=== PATIENT | female | born 1945 | race Caucasian/White ===

== ENCOUNTER → 2016-11-24 | Outpatient (CLI) | payer OTHER ==
--- NOTE | 2016-11-24 19:00 | DX ---
PA and Lateral Chest November 24, 2016 Clinical Indications: Left rib pain following ORIF in a 71-year-old female; comparison February 18, 2016 . Findings: Stable postoperative changes of ORIF are seen, with orthopedic fixation of multiple upper left rib fractures as well as a left clavicular fracture. The hardware is intact. The surgical stap les have been removed. There is mild decrease in left lung volume, which is unchanged. The heart si ze remains normal. Postoperative changes of CABG are seen. No pneumothorax is identified. No pleur al effusions are identified. Impressions 1. Stable postoperative changes of left rib and left clavicular ORIF. No acute abnormality is ident ified. 2. See above report for additional findings.
== END ==
LOC: FIMAGING 11:47
PROVIDERS: ATTEND Surgery
DX: S22.42XD Multiple fractures of ribs, left side, subsequent encounter for fracture with routine healing (principal); G89.18 Other acute postprocedural pain

== ENCOUNTER → 2017-02-15 | Outpatient (CLI) | payer OTHER | LOC: CIMAGING 12:21 | PROVIDERS: ATTEND Physician Assistant Surgical | DX: M79.605 Pain in left leg (principal); M79.89 Other specified soft tissue disorders; M71.22 Synovial cyst of popliteal space [Baker], left knee | CPT/HCPCS: 93971-PO ==

== ENCOUNTER 2017-03-30 17:20 | Observation (INO) | payer OTHER ==
[2017-03-30] MEDS ORDERED: ONDANSETRON DISINTEGRATING 4 MG TAB PO PRN (19:46)
[2017-03-30] MEDS ORDERED: ACETAMINOPHEN 325 MG TAB PO PRN (19:46)
[2017-03-30] MEDS ORDERED: ONDANSETRON 4 MG/2 ML VIAL IVP PRN (19:46)
--- NOTE | 2017-03-30 20:00 | PDGENHP ---
History and Physical - Chief Complaint Weakness - History of Present Illness this is a pleasant 71 yo female with MMP who presented to the [facility] ED this afternoon per the request of her PT team. In the E.D. she was found to have slight dehydration and possible ARF with a Cr of 1.4. She was given 500ml of IVF and a decision to admit was decided upon. Per the pt's request, she was transferred to [facility] as she gets her medical treatment her. The pt is a good historian. She reports she is not sure why she is here. She says that her PT and a friend entered her house and that she was laying in her bed as she normally does. Apparently, they report that she was intermediate off the bed, was confused, and looked pale. She denies this. She is alert and oriented. She was found to have no evidence of anemia or other electrolyte abnormality. A CT of the head was unremarkable. An EKG was reported unremarkable. Per report she recently was given an Ativan for a Left trapezius spasm. It is unclear if she took this this morning. She reports being able to shower this morning without difficulty. Was going about her day until this event. She was seen yesterday afternoon. Currently she appears back to her baseline per her son who is at bedside. She denies Fever, confusion, weakness, N/V, SOB, CP, increased leg swelling. She gets her wound care for her chronic LLE wound at [facility]. PMHx: Pseudogout, clavicle fracture, COPD with 2-3 L 24/7, Rib fractures, P.E., chest hematoma, pedal edema, porcine mitral valve replacement, restless leg syndrome. PSHx: Left thoracoplasty, appendectomy, partial hysterectomy, clavicular fracture, retrocele repair SocHx: lives alone, , No Tobacco or ETOH. FmHx: DM, HLD, HTN Labs (from [facility]) WBC: 7.7, Hgb: 12.3, platelets: 305 Cr: 1.4, K 3.6, Na normal, no other abnormalities History Information - Allergies/Home Medication List Allergies/Adverse Reactions: No Known Allergies Allergy (Verified 10/11/15 11:27) Home Medications: Calcium Carb W/Vit D [Calcium Carb W/Vit D 500/200 (*)] 500 mg PO DAILY [Last Taken 02/09/16 08:00] Folic Acid [Folic Acid 1 MG (*)] 1 mg PO TID 02/03/16 [Last Taken 02/09/16 21:00 ] Furosemide [Lasix 40 MG (*)] 40 mg PO DAILY 02/03/16 [Last Taken 02/09/16 09:00] I have personally reviewed and updated: family history, medical history, social history, surgical history - Social History Smoking Status: Former smoker Review of Systems ROS: 10pt was reviewed & negative except for what was stated in HPI & below Physical Exam Temp Pulse Resp BP Pulse Ox 36.6 C 95 16 155/85 H 97 03/30/17 19:14 03/30/17 19:14 03/30/17 19:14 03/30/17 19:14 03/30/17 18:52 O2 (L/minute) 3 Constitutional: no apparent distress, appears nourished Eyes: PERRL, EOMI Ears, Nose, Mouth, Throat: moist mucous membranes, No dry mucous membranes Cardiovascular: regular rate and rhythym, no murmur, rub, or gallop, edema ( trace bilaterally), No systolic murmur, No JVD Respiratory: reduced air movement Gastrointestinal: normoactive bowel sounds, soft, non-tender abdomen, no palpable masses Skin: warm Neurologic: AAOx3, sensation intact bilaterally, No weakness Psychiatric: interacting appropriately, not anxious, not encephalopathic Assessment & Plan Assessment: #Questions Acute vs Acute on chronic vs chronic Kidney injury -Cr. 1.4, baseline normal in 2016, no newer values -Appears Euvolemic and well hydrated #?Dehydration, resolving #Weakness: resolving #Encephalopathy: resolved #Recent Ativan use #Pedal edema, chronic #chronic left leg wound #Chronic AC and hx of PE #COPD, not in Exacerbation. At baseline. Plan: Admit repeat labs in a.m PT to clear for dispo She appears euvolemic currently. I will not make any adjustment to her home meds nor does she need additional fluids at this time. Her confusion could have been caused by the Ativan. Would avoid. F/u with wound clinic as arranged
[2017-03-30] MEDS ORDERED: ALBUTEROL 5 MG/ML INH 20 ML BTL IH PRN (22:29)
[2017-03-30] MEDS ORDERED: AMITRIPTYLINE HCL 25 MG TAB PO SCH (23:00)
[2017-03-30] MEDS ORDERED: GABAPENTIN 100 MG CAP PO SCH (23:00)
[2017-03-30] MEDS: APIXABAN 5 MG TAB PO SCH (23:42)
[2017-03-31 05:40] LABS: % IMMATURE GRANULYOCYTES 0.3 % (0.0-1.1); ABSOLUTE IMMATURE GRANULOCYTES 0.02 10^3/uL (0.00-0.10); ADD DIFF? NO; ADD MORPH? NO; ADD SCAN? NO; ATYPICAL LYMPHOCYTE FLAG 0 (0-99); FRAGMENT RBC FLAG 0 (0-99); HEMATOCRIT 32.3 % (38.0-47.0); HEMOGLOBIN 10.4 g/dL (12.6-16.3); LEFT SHIFT FLG 0 (0-99); LIPEMIA HEMOLYSIS FLAG 80 (0-99); MEAN CELL HEMOGLOBIN 30.6 pg (27.9-34.1); MEAN CELL HEMOGLOBIN CONCENTR. 32.2 g/dL (32.4-36.7); MEAN PLATELET VOLUME 10.4 fL (8.7-11.7); PLATELET CLUMPS FLAG 0 (0-99); PLATELET COUNT 347 10^3/uL (150-400); RED CELL DISTRIBUTION WIDTH 14.6 % (11.5-15.2)
[2017-03-31 05:52] LABS: ANION GAP 4 mEq/L (8-16); CALCIUM 8.9 mg/dL (8.5-10.4); CARBON DIOXIDE 31 mEq/l (22-31); CHLORIDE 101 mEq/L (97-110); CREATININE 0.8 mg/dL (0.6-1.0); GLOMERULAR FILTRATION RATE > 60; GLUCOSE 109 mg/dL (70-100); MAGNESIUM 1.7 mg/dL (1.6-2.3); POTASSIUM 3.3 mEq/L (3.5-5.2); SODIUM 136 mEq/L (134-144)
[2017-03-31 07:24] VITALS: RESP 18
[2017-03-31] MEDS ORDERED: CARVEDILOL 6.25 MG TAB PO SCH (08:00)
[2017-03-31] MEDS: FUROSEMIDE 40 MG TAB PO SCH ×2 (08:32→11:03)
[2017-03-31] MEDS: APIXABAN 5 MG TAB PO SCH (08:32)
[2017-03-31] MEDS ORDERED: FLUTICASONE/SALMETER 250/50MCG DISKUS IH SCH (09:00)
[2017-03-31] MEDS ORDERED: CALCIUM CARB W/VIT D 500 MG TAB PO SCH (09:00)
[2017-03-31] MEDS ORDERED: SPIRONOLACTONE 25 MG TAB PO SCH (09:00)
[2017-03-31] MEDS ORDERED: GABAPENTIN 100 MG CAP PO SCH (09:00)
[2017-03-31] MEDS ORDERED: LEFLUNOMIDE 20 MG TAB PO SCH (09:00)
[2017-03-31] MEDS ORDERED: PROTOCOL POTASSIUM 1 DOSE MISC PRN (10:23)
[2017-03-31] MEDS ORDERED: POTASSIUM CL 10 MEQ TAB PO ONE (10:31)
[2017-03-31 12:17] VITALS: BP 140/92; PULSE 98; TEMP 98.4; O2SAT 90
--- NOTE | 2017-03-31 12:54 | HOSPPROG ---
Hospitalist Progress Note Assessment/Plan: Patient is a 71 y/o woman who was admitted due to dehydration and elevated creat / she was given fluids. She was originally at ED in [place]. She asked to be transferred to [facility]. JASON on CKI creat is stable Likely dehydrated on Lasix and Aldactone Acute encephalopathy resolved had been started on Robaxin for neck pain recommending she stop taking Chronic leg wound care at wound clinic chronic pedal edema copd:no exacerbation always on 3 liters hx of PE: On chronic OAC plan: dc back home with home care/ close f/u with Dr Medley and [facility] Subjective: Smita feels fine/ wants to go home. Objective: Vital Signs Temp Pulse Resp BP Pulse Ox 36.9 C 98 18 140/92 H 90 L 03/31/17 12:00 03/31/17 12:00 03/31/17 12:00 03/31/17 12:00 03/31/17 12:00 Laboratory Results 03/31/17 04:50 03/31/17 04:50 03/30/17 03/31/17 04/01/17 05:59 05:59 05:59 Intake Total 300 350 Output Total 100 450 Balance 200 -100 - Physical Exam Constitutional: no apparent distress, appears nourished, not in pain, chronically ill appearing Eyes: PERRL, other (wearing glasses) Ears, Nose, Mouth, Throat: hearing normal Cardiovascular: regular rate and rhythym Respiratory: no respiratory distress, reduced air movement, expiratory wheeze ( few scattered) Skin: warm, other (trace ankle edema/left ankle in a dressing) Musculoskeletal: no muscle tenderness Neurologic: AAOx3 Psychiatric: interacting appropriately, not encephalopathic ICD10 Worksheet Patient Problems: Problems Problem Status Onset Rib fracture Acute
--- NOTE | 2017-03-31 13:37 | PDIAF ---
- Diagnosis Diagnosis: arf on chronic Code Status: Full Code - Medication Management Discharge Medications: Medications to Continue on Transfer Calcium Carb W/Vit D [Calcium Carb W/Vit D 500/200 (*)] 500 mg PO DAILY [Last Taken 02/09/16 08:00] Furosemide [Lasix 40 MG (*)] 40 mg PO AD 02/03/16 [Last Taken 03/30/17] Amitriptyline HCl [Elavil] 75 mg PO HS #0 tab 02/14/16 [Last Taken 03/29/17] Carvedilol [Coreg (*)] 12.5 mg PO BIDMEAL #0 tab 02/14/16 [Last Taken 03/30/17] Fluticasone/Salmeter 250/50Mcg [Advair 250/50 (*)] 1 puffs IH BID #0 disk [Last Taken 03/30/17] Spironolactone [Aldactone] 50 mg PO DAILY #0 tab 02/14/16 [Last Taken 03/30/17] Albuterol Sulfate [ALBUTEROL SULFATE] 0.63 mg IH BID PRN 03/30/17 [Last Taken Unknown] Albuterol Sulfate [Ventolin Hfa] 2 puffs IH QID PRN 03/30/17 [Last Taken Unknown ] Apixaban [Eliquis] 5 mg PO BID 03/30/17 [Last Taken 03/30/17 08:00] Colchicine [Colchicine (*)] 0.6 mg PO HS 03/30/17 [Last Taken 03/29/17] Gabapentin 100 mg PO DAILY 03/30/17 [Last Taken 03/30/17] Gabapentin 200 mg PO HS 03/30/17 [Last Taken 03/29/17] Leflunomide 20 mg PO DAILY 03/30/17 [Last Taken 03/30/17] rOPINIRole HCL [Ropinirole HCl] 4 mg PO HS 03/30/17 [Last Taken 03/29/17] Acetaminophen [Tylenol 325mg (*)] 650 mg PO Q4HRS PRN #0 tab 03/31/17 [Last Taken Unknown] Discharge Medications: Refer to the Discharge Home Medication list for PRN reason. - Orders Services needed: Home Care, Physical Therapy, Occupational Therapy Home Care Face to Face: I certify that this patient was under my care and that I had the required [id number] encounter meeting the encounter requirements on the discharge day. My findings support the fact that the patient is homebound as defined in CMS Chapter 7 Medicare Benefits Manual 30.1.1, The condition of the patient is such that there exists a normal inability to leave home and consequently, leaving home would require a considerable and taxing effort. Diet Recommendation: no restrictions on diet Diet Texture: Regular Texture Diet Additional: Hold lasix until you see Ann or Dr Clarke at [facility]/ make an appt for early next week. - Follow Up Care Current Providers and Referrals: Patient,NotPresent [Primary Care Provider] - Ann Jade, [employer] [Certified Nurse Practioner] -
--- NOTE | 2017-03-31 14:24 | GDS ---
[f rep st] DISCHARGE SUMMARY DISCHARGE DIAGNOSES: 1. Acute renal failure, on chronic. 2. Dehydration. 3. Acute encephalopathy. 4. Chronic leg wound. 5. Chronic pedal edema. 6. Chronic obstructive pulmonary disease, baseline on 3 L. 7. History of pulmonary embolism, on chronic oral anticoagulation. BRIEF HISTORY: The patient is a 71-year-old female, who has a past medical history of COPD, pedal edema, porcine mitral valve replacement, and restless legs syndrome, who presented to the emergency room at [place] and found to have some dehydration. There was concern that she had acute renal failure with a creatinine of 1.4. She was given 500 mL of IV fluids. The patient requested to be transferred to [facility]. She was confused and looked pale. She had a CT performed of the head, which was unremarkable. An EKG was reported unremarkable. She was admitted for further care. HOSPITAL COURSE PER PROBLEM: 1. Acute renal failure on chronic renal failure. Creatinine is stable today at 0.8. She is on two diuretics for lower extremity edema. I have recommended that she hold her Lasix until she further follows up with [facility]. Recommend that she see them early next week. 2. Dehydration, this probably is secondary from being on Lasix and Aldactone. 3. Acute encephalopathy, this is resolved. She was given Ativan for muscle spasm in the ER. In addition, she is on a muscle relaxant, and I have recommended that she stop taking this, especially in the setting that she lives alone. 4. Chronic leg wound, she sees Dr. Medley and has an appointment on Tuesday. 5. Chronic pedal edema, it is trace today. 6. COPD, no exacerbation. She is at her baseline of 3 L. 7. History of PE, she is on chronic oral anticoagulation. PENDING LABS AND TESTS: None. CONDITION AT DISCHARGE: Stable. Blood pressure is 140/92, heart rate is 98, respiratory rate is 18, O2 saturation on 3 L is 90%, temperature is 36.9 Celsius. DISCHARGE MEDICATIONS: Please see the EMR. DISCHARGE INSTRUCTIONS: 1. To follow up with [facility] to discuss what she needs, the Aldactone and Lasix. 2. To follow up with Dr. Medley. /[id number]/MODL MTDD
[2017-03-31] MEDS ORDERED: COLCHICINE 0.6 MG CAP/TAB PO SCH (21:00)
== END 2017-03-31 15:28 | disposition home health service (06) ==
LOC: F3N 18:31 → INTOOBSV 18:31
PROVIDERS: ADMIT Family Medicine; ATTEND Hospitalist
DX: N17.9 Acute kidney failure, unspecified (principal); I12.9 Hypertensive chronic kidney disease with stage 1 through stage 4 chronic kidney disease, or unspecified chronic kidney disease; E86.0 Dehydration; G93.49 Other encephalopathy; J44.9 Chronic obstructive pulmonary disease, unspecified; L97.929 Non-pressure chronic ulcer of unspecified part of left lower leg with unspecified severity; R60.0 Localized edema; Z79.01 Long term (current) use of anticoagulants
CPT/HCPCS: 97161; G0378; G8978; G8979; G8980

== ENCOUNTER → 2017-04-22 | Outpatient (CLI) | payer OTHER | LOC: BHCLAF 13:15 | PROVIDERS: ATTEND Internal Medicine Cardiovascular Disease | DX: I38 Endocarditis, valve unspecified (principal) | CPT/HCPCS: 93306-PO ==

== ENCOUNTER 2017-05-31 15:16 | Inpatient (IN) | payer OTHER ==
--- NOTE | 2017-05-31 16:20 | EDPHY ---
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 She complains of increasing fatigue, weakness, rash and shortness of breath. This has been present for the past week. Seen by her primary care physician yesterday order blood cultures and labs at the time. She diagnosed her with a rash of lower extremities and prescribed triamcinolone. Patient says the rash may be somewhat better. But her remaining symptoms have begun to worsen. She has no chest pain but she has significant lethargy and fatigue to the point that she can minimally ambulate. Shortness of breath his orthotic neck and does improve when sitting upright. Her lower extremity erythema and edema with some excoriations. She does have a red erythematous rash to the palm of the hands. She does have a history of a porcine mitral valve replacement 2012. He no other associated complaints or modifying factors. She was attempted for direct admit but there were no beds available, thus she presents to the emergency department REVIEW OF SYSTEMS: Ten systems reviewed and are negative unless otherwise noted in the HPI PAST MEDICAL HISTORY: Reviewed as documented SOCIAL HISTORY: Previous smoker. Home oxygen dependent. Lives in [place] with daily home health not FAMILY HISTORY: Noncontributory EXAMINATION General Appearance: Alert, no distress, frail Head: normocephalic, atraumatic Eyes: Pupils equal and round, no conjunctival pallor or injection. EOMs intact ENT, Mouth: Mucous membranes moist. Uvula midline. No lesions of the mouth. Airway is patent Neck: Normal inspection, supple, non-tender Respiratory: Scattered rhonchi. No crackles or consolidation Cardiovascular: Regular rate and rhythm. Systolic murmur. Pulses intact distally in symmetrically Gastrointestinal: Abdomen is soft and nontender Back: non-tender, no bony abnormalities Neurological: GCS 15. Cranial nerves 2-12 grossly intact A&O, nonfocal. Strength is 3/5 in all 4 limbs. Skin: Warm and dry. Extensive maculopapular rash to the lower extremities, arms, palms of the hands and malar rash to the face. There is some petechiae to the anterior shins bilaterally no lesions of the nails. Extremities: Symmetric 2+ pedal edema. Extremities are mildly tender over the edema. The range of motion of the limbs are symmetric. Psychiatric: Mood and affect normal DIFFERENTIAL DIAGNOSES: Including but not limited to sepsis, endocarditis, rash, CHF, stasis, pneumonia , UTI MDM: 4:15 p.m. Increasing weakness, fatigue, extensive rash. Primary care physician sufficient for admission due to concern for the possibility of endocarditis and others. I did speak directly with Dr. Tomlin. Patient arrives with mild tachycardia but in no acute distress. Septic workup has been commenced. Additionally I have ordered ultrasound of the lower extremities and will discuss with my attending physician for him to evaluate the patient. 4:[address] Carlisle is evaluating the patient at this time. She remains awake and alert in no acute distress 5:10 p.m. Notified by radiologist Dr. Leary. Doppler of the lower extremities reveals no DVT. There is a left Jaquez's cyst. Remainder of laboratory studies are pending at this time. 5:25 p.m. Lower extremity cellulitis that is likely due to secondary infection of rash. There is no evidence of sepsis as there is no leukocytosis, no fever, negative lactic acid. Plan for admission due to cellulitis and rash given the patient's multiple comorbidities and her age. I have discussed case with the hospitalist Dr. Murdock. He has been admitted in stable condition. I do not appreciate any evidence of endocarditis, but I have discussed this as a possible etiology for the hospitalist to explore. SUPERVISION: Shared visit with Dr. Carlisle (Dustin Rolon) Constitutional: Initial Vital Signs Temperature (C) 36.8 C 05/31/17 15:22 Heart Rate 109 H 05/31/17 15:22 Respiratory Rate 20 05/31/17 15:22 Blood Pressure 116/85 H 05/31/17 15:22 O2 Sat (%) 92 05/31/17 15:22 O2 Delivery Mode Nasal Cannula O2 (L/minute) 2 Allergies/Adverse Reactions: No Known Allergies Allergy (Verified 10/11/15 11:27) Home Medications: Medication Instructions Recorded Furosemide [Lasix 40 MG (*)] 40 mg PO DAILY 02/03/16 Amitriptyline HCl [Elavil] 75 mg PO HS #0 tab 02/14/16 Fluticasone/Salmeter 250/50Mcg 1 puffs IH BID #0 disk 02/14/16 [Advair 250/50 (*)] Spironolactone [Aldactone] 50 mg PO DAILY #0 tab 02/14/16 Albuterol Sulfate [ALBUTEROL 0.63 mg IH BID PRN 03/30/17 SULFATE] Albuterol Sulfate [Ventolin Hfa] 2 puffs IH QID PRN 03/30/17 Apixaban [Eliquis] 5 mg PO BID 03/30/17 Colchicine [Colchicine (*)] 0.6 mg PO HS 03/30/17 Gabapentin 100 mg PO DAILY 03/30/17 Gabapentin 200 mg PO HS 03/30/17 Leflunomide 20 mg PO DAILY 03/30/17 rOPINIRole HCL [Ropinirole HCl] 4 mg PO HS 03/30/17 Acetaminophen [Tylenol 325mg (*)] 650 mg PO Q4HRS PRN #0 tab 03/31/17 Carvedilol [Coreg (*)] 12.5 mg PO DAILY@0800 05/31/17 Carvedilol [Coreg (*)] 18.75 mg PO DAILY@1800 05/31/17 Furosemide [Lasix 40 MG (*)] 40 mg PO Q3D 05/31/17 Departure - Departure Disposition: [facility] Acute Clinical Impression: Lower extremity cellulitis Qualifiers: Laterality: unspecified laterality Qualified Code(s): L03.119 - Cellulitis of unspecified part of limb Dyspnea Qualifiers: Dyspnea type: shortness of breath Qualified Code(s): R06.02 - Shortness of breath Condition: Good
[2017-05-31 16:52] LABS: % IMMATURE GRANULYOCYTES 0.6 % (0.0-1.1); ABSOLUTE IMMATURE GRANULOCYTES 0.05 10^3/uL (0.00-0.10); ADD DIFF? NO; ADD MORPH? NO; ADD SCAN? NO; ATYPICAL LYMPHOCYTE FLAG 10 (0-99); FRAGMENT RBC FLAG 0 (0-99); HEMATOCRIT 39.6 % (38.0-47.0); HEMOGLOBIN 13.1 g/dL (12.6-16.3); LEFT SHIFT FLG 0 (0-99); LIPEMIA HEMOLYSIS FLAG 80 (0-99); MEAN CELL HEMOGLOBIN 30.8 pg (27.9-34.1); MEAN CELL HEMOGLOBIN CONCENTR. 33.1 g/dL (32.4-36.7); MEAN PLATELET VOLUME 10.6 fL (8.7-11.7); PLATELET CLUMPS FLAG 0 (0-99); PLATELET COUNT 324 10^3/uL (150-400); RED BLOOD CELL COUNT 4.26 10^6/uL (4.18-5.33); RED CELL DISTRIBUTION WIDTH 14.6 % (11.5-15.2)
--- NOTE | 2017-05-31 17:01 | CPEKG ---
Heart Rate: 101 RR Interval: 594 P-R Interval: 164 QRSD Interval: 96 QT Interval: 380 QTC Interval: 493 P Bergton: 64 QRS Bergton: -54 T Wave Bergton: 74 EKG Severity - ABNORMAL ECG - EKG Impression: SINUS TACHYCARDIA EKG Impression: LEFT ANTERIOR FASCICULAR BLOCK EKG Impression: BORDERLINE T ABNORMALITIES, ANT-LAT LEADS EKG Impression: BORDERLINE PROLONGED QT INTERVAL EKG Impression: SINUS RHYTHM HAS REPLACED ATRIAL FLUTTER Electronically Signed By: Savage Galvez 01-Jun-2017 07:50:13
[2017-05-31] MEDS ORDERED: VANCOMYCIN HCL/NORMAL SALINE 250 ML IV ONE (17:05)
[2017-05-31 17:18] LABS: TROPONIN I 0.018 ng/mL (0-0.034)
[2017-05-31 17:21] LABS: INR 1.06 (0.83-1.16); PROTIME(PATIENT) 13.7 SEC (12.0-15.0)
[2017-05-31 17:22] LABS: APTT 29.7 SEC (23.0-38.0)
[2017-05-31] MEDS ORDERED: ONDANSETRON 4 MG/2 ML VIAL IVP PRN (17:41)
[2017-05-31] MEDS ORDERED: ONDANSETRON DISINTEGRATING 4 MG TAB PO PRN (17:41)
[2017-05-31] MEDS ORDERED: ACETAMINOPHEN 325 MG TAB PO PRN (17:41)
[2017-05-31 17:43] LABS: ANION GAP 14 mEq/L (8-16); BILIRUBIN,TOTAL 0.7 mg/dL (0.1-1.4); C-REACTIVE PROTEIN 31.2 mg/L (<10.0); CALCIUM 9.8 mg/dL (8.5-10.4); CARBON DIOXIDE 28 mEq/l (22-31); CHLORIDE 94 mEq/L (97-110); CREATININE 0.9 mg/dL (0.6-1.0); GLOMERULAR FILTRATION RATE > 60; GLUCOSE 92 mg/dL (70-100); POTASSIUM 4.2 mEq/L (3.5-5.2); SODIUM 136 mEq/L (134-144)
[2017-05-31 17:54] LABS: SEDIMENTATION RATE 11 MM/HR (0-30)
[2017-05-31 19:42] VITALS: RESP 16
[2017-05-31] MEDS ORDERED: ALBUTEROL 200 PUFFS/18 GM MDI IH PRN (20:00)
--- NOTE | 2017-05-31 20:08 | GHP ---
[f rep st] HISTORY AND PHYSICAL DATE OF ADMISSION: 05/31/2017 CHIEF COMPLAINT: Rash, fatigue. HISTORY OF PRESENT ILLNESS: a 72-year-old female with a history of pseudogout, COPD on oxygen chronically, porcine mitral valve replacement, who was sent in by her PCP, Dr. Tomlin, for multiple symptoms including rash, chills, and fatigue. For the past 2 weeks chills, fatigue and a new rash. Fatigue has been for a few months along with decreased appetite and oral intake. Intermittently has diarrhea once a month. A rash started on her ankles 2 weeks ago that has spread to shins, hands, chest, and face. Has a few small blisters on her right hand. Not painful, but itchy. Denies fevers or sweats. No chest pain, mylagias , or shortness of breath. Fell and injured her neck in February this year. Per son , had negative CT of neck at that time and doing, but still weak in neck. No pets or recent travel. Previously worked as a middle school music teacher. No new medications, soaps, or perfumes. REVIEW OF SYSTEMS: I completed a 10-point review of systems. PAST MEDICAL HISTORY: 1. Chronic left leg wound after dropping a large container of butter on that leg in January 2017, status post skin graft. 2. Pseudogout. 3. Clavicle fracture. 4. COPD. 5. Chronic hypoxemic respiratory failure on 2-3 L. 6. History of small lingular subsegmental PE in 2012. 7. Mitral valve replacement. 8. Restless leg syndrome. 9. Hypertension. PAST SURGICAL HISTORY: Thoracoplasty, appendectomy, hysterectomy, rectocele repair. SOCIAL HISTORY: Lives in [place] by herself. Her son is close by. She used a cane for the last 3 years. She drinks a toddy a day per her report. Had smoked a pack of cigarettes for 45 years. FAMILY HISTORY: Diabetes, hypertension. ALLERGIES: No known drug allergies. HOME MEDICATIONS: Eliquis 5 mg twice a day, Elavil 75 mg at bedtime, albuterol nebulizers as needed, colchicine, Coreg, Lasix 40 mg every 3 days as needed, Advair, spironolactone 50 mg daily, leflunomide 20 mg daily, gabapentin 200 mg at bedtime, gabapentin 100 mg daily, ropinirole. PHYSICAL EXAMINATION: VITAL SIGNS: Temperature is 37, blood pressure 150/88, heart rate 103, respirations 21, 96% on 2 L. GENERAL: Thin female lying in bed in no acute distress. HEENT: PERRLA. EOMI. Oropharynx clear. No oral lesions or petechiae. Does have a macular rash over bilateral cheeks and along the left exterior ear. CV: Regular rate and rhythm. No murmurs, gallops, or rubs. LUNGS: Clear to auscultation bilaterally. ABDOMEN: Soft, nontender, nondistended. Positive bowel sounds. : No suprapubic tenderness. MUSCULOSKELETAL: Moving all 4 extremities. No spinae tenderness except over the cervical spine. SKIN: Bilateral legs with erythema and warmth. She has a small papular lesions, flaky skin. Small vesicles on the right palm. One small vesicle on the left palm. The same rash is present on her upper chest along the neck. NEURO: 2 through 12 intact. PSYCH: Alert and oriented x3. Very pleasant. LABORATORY AND X-RAY DATA: WBC is 8, hemoglobin 13, hematocrit 39, platelets 324. Coagulations within normal. Blood gas 1.5. Sodium 136, potassium 4.2, chloride 94, anion gap 14, creatinine 0.9. Troponin 0.018. CRP is 31. BNP is 596. ESR is 11. Lower extremity ultrasound negative for DVT. Chest x-ray: Scarring in the lingula. Sternotomy wires in place with plates left clavicle. ASSESSMENT/PLAN: 1. Maculopapular rash: Differential includes infection, medication, vasculitis , lupus. She denies new soaps or medications. It is in an unusual distribution on legs, face, palms, neck, ear. Leflunomide can cause rash. Other differential includes vasculitis, (she denies having RA). Consider syphilis with palmar involvement. Porphyria can present this way. Check JEVON, RF, and complement levels. ESR, CRP, UA for protein, porphyrins, RPR. Hold Leflunomide. 2. Bilateral lower extremity cellulitis: Superimposed over the rash. IV vancomycin, blood cultures drawn in ED. 3. Chronic obstructive pulmonary disease: No evidence of exacerbation. 4. Chronic hypoxemic respiratory failure: Oxygen stable at her baseline 2-3 L. 5. History of small lingular pulmonary embolism in 2013 on Eliquis. 6. History of a mitral valve replacement: Eliquis. 7. Restless leg syndrome, ropinirole. 8. Hypertension, stable. 9. Pseudogout: colchicine. On leflunomide which is not normal treatment?. She denies rheumatoid arthritis. 10. Neck pain: This started after a fall in February 2017. Will start with an x- ray here. Can consider CT or MRI; however, she is claustrophobic. We will have PT and OT evaluate. 11. Diet: Regular. 12. Deep venous thrombosis prophylaxis, on Eliquis. 13. Disposition: Patient warrants inpatient admission given acute rash, lethargy, and deconditioning. /[id number]/MODL MTDD
[2017-05-31] MEDS ORDERED: GABAPENTIN 100 MG CAP PO SCH (21:00)
[2017-05-31] MEDS ORDERED: COLCHICINE 0.6 MG CAP/TAB PO SCH (21:00)
[2017-05-31] MEDS ORDERED: AMITRIPTYLINE HCL 25 MG TAB PO SCH (21:00)
[2017-05-31] MEDS: APIXABAN 5 MG TAB PO SCH (21:25)
[2017-05-31 22:22] LABS: ALBUMIN 4.6 g/dL (3.5-5.0); BILIRUBIN,TOTAL 0.7 mg/dL (0.1-1.4); BILIRUBIN-CONJUGATED 0.4 mg/dL (0.0-0.5); BILIRUBIN-UNCONJUGATED 0.3 mg/dL (0.0-1.1); TOTAL PROTEIN 7.5 g/dL (6.3-8.2)
[2017-05-31] MEDS: FLUTICASONE/SALMETER 250/50MCG DISKUS IH SCH (22:39)
[2017-06-01 05:14] LABS: HEMATOCRIT 36.5 % (38.0-47.0); MEAN CELL HEMOGLOBIN 30.8 pg (27.9-34.1); MEAN CELL HEMOGLOBIN CONCENTR. 32.9 g/dL (32.4-36.7); MEAN CELL VOLUME 93.8 fL (81.5-99.8); RED BLOOD CELL COUNT 3.89 10^6/uL (4.18-5.33); RED CELL DISTRIBUTION WIDTH 14.5 % (11.5-15.2)
[2017-06-01 05:25] LABS: ANION GAP 9 mEq/L (8-16); CALCIUM 8.8 mg/dL (8.5-10.4); CARBON DIOXIDE 30 mEq/l (22-31); CHLORIDE 99 mEq/L (97-110); CREATININE 0.9 mg/dL (0.6-1.0); GLOMERULAR FILTRATION RATE > 60; GLUCOSE 112 mg/dL (70-100); POTASSIUM 3.6 mEq/L (3.5-5.2); SODIUM 138 mEq/L (134-144)
[2017-06-01 07:16] VITALS: BP 136/85; PULSE 100; TEMP 98.3; O2SAT 95
[2017-06-01] MEDS ORDERED: CARVEDILOL 6.25 MG TAB PO SCH ×2 (08:00→18:00)
[2017-06-01] MEDS: APIXABAN 5 MG TAB PO SCH (08:13)
[2017-06-01] MEDS ORDERED: FUROSEMIDE 40 MG TAB PO SCH (09:00)
[2017-06-01] MEDS ORDERED: SPIRONOLACTONE 25 MG TAB PO SCH (09:00)
[2017-06-01] MEDS ORDERED: GABAPENTIN 100 MG CAP PO SCH (09:00)
[2017-06-01] MEDS ORDERED: LEFLUNOMIDE 20 MG TAB PO SCH (09:00)
[2017-06-01] MEDS: FLUTICASONE/SALMETER 250/50MCG DISKUS IH SCH (09:56)
--- NOTE | 2017-06-01 09:57 | HOSPPROG ---
Hospitalist Progress Note Assessment/Plan: 72 yo F w AVR here w rash rash: w eosinophilia leflunomide can cause rash, unclear if accompanied w eosinophilia she does have unclear indication for leflunomide not cellulitis 1. dc antibiotics 2. skin biopsy 3. home w rheum follow up AVR: continue BB, chelsea dispo: home today > 30 minutes on dc Subjective: no fever. case d/w dr gill Objective: Vital Signs Temp Pulse Resp BP Pulse Ox 36.8 C 100 16 136/85 H 95 06/01/17 07:15 06/01/17 07:52 06/01/17 07:15 06/01/17 07:52 06/01/17 07:15 Laboratory Results 06/01/17 04:16 06/01/17 04:16 PT 13.7 SEC (12.0-15.0) 05/31/17 16:35 INR 1.06 (0.83-1.16) 05/31/17 16:35 - Physical Exam Constitutional: no apparent distress, appears nourished Eyes: PERRL, anicteric sclera Ears, Nose, Mouth, Throat: moist mucous membranes, hearing normal Cardiovascular: regular rate and rhythym, no murmur, rub, or gallop, systolic murmur Respiratory: no respiratory distress, no rales or rhonchi Gastrointestinal: normoactive bowel sounds, soft, non-tender abdomen Genitourinary: no bladder fullness, No jules in urethra Skin: other (chronic venous stasis changes b/l. pustules on dorsum of R foot. 6X6 cm patch on upper chest) Musculoskeletal: full muscle strength Neurologic: AAOx3 ICD10 Worksheet Patient Problems: Problems Problem Status Onset Dyspnea Acute Lower extremity cellulitis Acute Rib fracture Acute
[2017-06-01] MEDS: diphenhydrAMINE 25 MG CAP PO PRN ×2 (10:08→15:32)
[2017-06-01] MEDS ORDERED: LIDOCAINE 1% 5 ML SDV IF ONE (10:43)
[2017-06-01 12:22] LABS: COLOR PALE YELLOW; LEUKOCYTE ESTERASE,URINE NEGATIVE (NEGATIVE); NITRITE,URINE NEGATIVE (NEGATIVE)
[2017-06-01 12:30] LABS: BACTERIA TRACE /hpf (NONE SEEN)
[2017-06-01 12:31] LABS: RBC,URINE NONE SEEN /hpf (0-3); WBC,URINE NONE SEEN /hpf (0-3)
--- NOTE | 2017-06-01 14:24 | PDIAF ---
- Diagnosis Diagnosis: RASH Code Status: Full Code - Medication Management Discharge Medications: Medications to Continue on Transfer Furosemide [Lasix 40 MG (*)] 40 mg PO DAILY 02/03/16 [Last Taken 05/31/17] Amitriptyline HCl [Elavil] 75 mg PO HS #0 tab 02/14/16 [Last Taken 05/30/17] Fluticasone/Salmeter 250/50Mcg [Advair 250/50 (*)] 1 puffs IH BID #0 disk [Last Taken 05/24/17] Spironolactone [Aldactone] 50 mg PO DAILY #0 tab 02/14/16 [Last Taken 05/30/17] Albuterol Sulfate [ALBUTEROL SULFATE] 0.63 mg IH BID PRN 03/30/17 [Last Taken ] Albuterol Sulfate [Ventolin Hfa] 2 puffs IH QID PRN 03/30/17 [Last Taken Unknown ] Apixaban [Eliquis] 5 mg PO BID 03/30/17 [Last Taken 05/31/17 08:00] Colchicine [Colchicine (*)] 0.6 mg PO HS 03/30/17 [Last Taken 05/30/17] Gabapentin 100 mg PO DAILY 03/30/17 [Last Taken 05/31/17] Gabapentin 200 mg PO HS 03/30/17 [Last Taken 05/30/17] Leflunomide 20 mg PO DAILY 03/30/17 [Last Taken 05/31/17] rOPINIRole HCL [Ropinirole HCl] 4 mg PO HS 03/30/17 [Last Taken 05/30/17] Acetaminophen [Tylenol 325mg (*)] 650 mg PO Q4HRS PRN #0 tab 03/31/17 [Last Taken Unknown] Carvedilol [Coreg (*)] 12.5 mg PO DAILY@0800 05/31/17 [Last Taken 05/30/17] Carvedilol [Coreg (*)] 18.75 mg PO DAILY@1800 05/31/17 [Last Taken 05/30/17] Furosemide [Lasix 40 MG (*)] 40 mg PO Q3D 05/31/17 [Last Taken 05/31/17] Discharge Medications: Refer to the Discharge Home Medication list for PRN reason. - Orders Services needed: Home Mcfp Care Face to Face: I certify that this patient was under my care and that I had the required [id number] encounter meeting the encounter requirements on the discharge day. My findings support the fact that the patient is homebound as defined in CMS Chapter 7 Medicare Benefits Manual 30.1.1, The condition of the patient is such that there exists a normal inability to leave home and consequently, leaving home would require a considerable and taxing effort. - Follow Up Care Current Providers and Referrals: TUNG,ALE [Other] - As per Instructions
[2017-06-01 17:08] LABS: C3 COMPLEMENT COMPONENT 131 mg/dL (75 - 175); C4 COMPLEMENT COMPONENT 26 mg/dL (14 - 40)
[2017-06-01] MEDS ORDERED: VANCOMYCIN 750 MG in D5W 150 ML IV SCH (18:00)
--- NOTE | 2017-06-02 07:42 | GDS ---
[f rep st] DISCHARGE SUMMARY DISCHARGE DIAGNOSES: 1. New papular/pustular rash with eosinophilia. 2. Pseudogout. 3. Chronic left foot wound. 4. History of mitral valve replacement. HOSPITAL COURSE: Please see admission history and physical. Patient referred for direct admission followed by rash and fatigue. She had a lower extremity rash with pustules, but it was also in the setting of chronic venous stasis changes. She was treated with cellulitis overnight, but these anti biotics were discontinued. She was afebrile, had a normal venous lactate. No evidence of infection . She had a mildly elevated CRP, normal sedimentation rate. She had a negative rheumatoid factor, pending our complement and JEVON screen. She had an absent peripherally eosinophilic count of 9% with an absolute eosinophil count of 0.77. She had a nonreactive RPR. I performed a skin biopsy at the bedside with Dr. Cory Peck, supervising. I discussed the case with her outpatient zoology technical officer , Dr. Gita Armendariz. She is discharged home with outpatient followup. No steroids were provided. /[id number]/MODL
[2017-06-02 14:54] LABS: ANTINUCLEAR ANTIBODIES SCREEN 1.22 UNITS (<=1.00)
== END 2017-06-01 16:10 | disposition home health service (06) | DRG 607 ==
LOC: F3E 18:56
PROVIDERS: ADMIT Internal Medicine; ATTEND Internal Medicine
DX: R21 Rash and other nonspecific skin eruption (principal); R53.83 Other fatigue; L03.116 Cellulitis of left lower limb; J44.9 Chronic obstructive pulmonary disease, unspecified; J96.11 Chronic respiratory failure with hypoxia; Z99.81 Dependence on supplemental oxygen; M54.2 Cervicalgia; M10.9 Gout, unspecified; Z87.891 Personal history of nicotine dependence; Z95.2 Presence of prosthetic heart valve; Z86.711 Personal history of pulmonary embolism
CPT/HCPCS: 84120-90; 97161-GP; 97166-GO; G8978-GP-CI; G8979-GP-CI; G8980-GP-CI; G8987-GO-CJ; G8988-GO-CI; J3370

== ENCOUNTER 2017-06-08 16:09 | Inpatient (IN) | payer OTHER ==
--- NOTE | 2017-06-08 17:02 | EDPHY ---
H & P Time Seen by Provider: 06/08/17 16:23 HPI/ROS: Chief complaint. Neck pain HPI. Patient is 72-year-old female with multiple complaints. She has been unable to hold her head up since February. She has neck pain. Symptoms began after a fall. Now her chin is touching her chest and she has some trouble breathing and swallowing with this. Her neck hurts her to move. She denies focal weakness or paresthesias however. She also has had the a rash on her face and legs for several weeks. Apparently she had a wound on her ankle and has been going through wound care clinic though it has healed. She has had cellulitis to the foot. She continues to have swelling and rash in redness to the left ankle. No chest pain or shortness of breath. She was seen at [facility] for cardiac evaluation today and did not get the evaluation because of her neck and they sent her to the emergency department. No fever. No abdominal pain. ROS Constitutional. no fever/chills, no weakness Eyes. no problems with vision ENT. no sore throat, no nasal drainage Cardiovascular. no chest pain Respiratory. no shortness of breath, no cough Abdominal. no abdominal pain, no nausea/vomiting, no diarrhea . no problems urinating MS. Neck pain Skin. Rash to face and legs Lymph. no swollen glands Neuro. no headache, no dizziness, no difficulty walking or with speech Past Medical/Surgical History: Past medical history significant for COPD, artificial heart valve, blood clot, the orthopedic injuries, hysterectomy, appendectomy Social History: Single, nonsmoker, no alcohol Smoking Status: Former smoker Physical Exam: General Appearance: Alert well-developed female moderate distress vital signs significant for heart rate 105 Eyes: Pupils equal and round no pallor or injection. ENT, Mouth: Mucous membranes are moist. Respiratory: There are no retractions, lungs are clear to auscultation. Cardiovascular: Regular rate and rhythm. Gastrointestinal: Abdomen is soft and nontender, no masses, bowel sounds normal. Neurological: Awake and alert, sensory and motor exams grossly normal. Skin: Erythematous rash to the face. Does not involve the mouth. Scaly a.m. erythematous rash to legs especially to the left ankle Musculoskeletal: Neck is held in flexed position and hurts to extend Extremities symmetrical, full range of motion. Psychiatric: Patient is oriented X 3, there is no agitation. Constitutional: Initial Vital Signs Temperature (C) 36.9 C 06/08/17 16:16 Heart Rate 105 H 06/08/17 16:16 Respiratory Rate 20 06/08/17 16:16 Blood Pressure 121/94 H 06/08/17 16:16 O2 Sat (%) 93 06/08/17 16:16 O2 Delivery Mode Nasal Cannula O2 (L/minute) 2 Allergies/Adverse Reactions: No Known Allergies Allergy (Verified 06/08/17 16:16) Home Medications: Medication Instructions Recorded Furosemide [Lasix 40 MG (*)] 40 mg PO DAILY 02/03/16 Amitriptyline HCl [Elavil] 75 mg PO HS #0 tab 02/14/16 Fluticasone/Salmeter 250/50Mcg 1 puffs IH BID #0 disk 02/14/16 [Advair 250/50 (*)] Spironolactone [Aldactone] 50 mg PO DAILY #0 tab 02/14/16 Albuterol Sulfate [ALBUTEROL 0.63 mg IH BID PRN 03/30/17 SULFATE] Albuterol Sulfate [Ventolin Hfa] 2 puffs IH QID PRN 03/30/17 Apixaban [Eliquis] 5 mg PO BID 03/30/17 Colchicine [Colchicine (*)] 0.6 mg PO HS 03/30/17 Gabapentin 100 mg PO DAILY 03/30/17 Gabapentin 200 mg PO HS 03/30/17 Leflunomide 20 mg PO DAILY 03/30/17 rOPINIRole HCL [Ropinirole HCl] 4 mg PO HS 03/30/17 Acetaminophen [Tylenol 325mg (*)] 650 mg PO Q4HRS PRN #0 tab 03/31/17 Carvedilol [Coreg (*)] 12.5 mg PO DAILY@0800 05/31/17 Carvedilol [Coreg (*)] 18.75 mg PO DAILY@1800 05/31/17 Furosemide [Lasix 40 MG (*)] 40 mg PO Q3D 05/31/17 Medical Decision Making - Diagnostics EKG Interpretation: EKG interpreted by me shows sinus tachycardia. Normal interval. Left axis deviation with left anterior fascicular block. No significant ST elevation or depression. No arrhythmia. Rate is 101 Imaging Results: Imaging Impressions Cervical Spine MRI 06/08/17 17:04 Impression: 1. Edema associated with the C6 vertebral body segment with mild anterior wedging to be related to mild compression of the fracture line is not delineated. 2. Mild edema right anterior inferior endplate of C5 could also represent bone bruise versus Modic type I edematous endplate changes. 3. Minimal subluxations at C4-C5 and at C5-C6. 4. Disk bulges most prominent at C5-C6 and at C6-C7 with associated degenerative disk disease and spinal stenosis Findings discussed with Trey Solano M.D. at 20:46 hour, 06/08/2017. Please see findings at specific disk levels. Chest X-Ray 06/08/17 17:04 Impression: Stable x2 weeks. Impression: One-view chest x-ray interpreted by me as nonacute MRI cervical spine reviewed by me and discussed with Dr. Caicedo shows edema it C6 as well as adjacent edema at C5. Anterior wedging. Possible bone bruise. Spinal stenosis. Multiple disc bulges Procedures: IV normal saline ED Course/Re-evaluation: I consulted and discussed the case with Dr. Heard initially who recommends the MRI I consulted and discussed the case with Dr. Hensley who will review the MRI. He recommends admission I consulted discussed the case with Dr. Murdock, hospitalist, who agrees to the admission Differential Diagnosis: I considered cervical spine fracture, unstable ligamental injury, cervical stenosis. - Data Points Laboratory Results: Laboratory Results 06/08/17 15:00 06/08/17 15:00 06/08/17 06/08/17 06/08/17 15:00 15:00 15:00 WBC 10.60 10^3/uL H 10^3/uL (3.80-9.50) RBC 4.40 10^6/uL 10^6/uL (4.18-5.33) Hgb 13.5 g/dL g/dL (12.6-16.3) Hct 41.0 % % (38.0-47.0) MCV 93.2 fL fL (81.5-99.8) MCH 30.7 pg pg (27.9-34.1) MCHC 32.9 g/dL g/dL (32.4-36.7) RDW 13.9 % % (11.5-15.2) Plt Count 366 10^3/uL 10^3/uL (150-400) MPV 9.9 fL fL (8.7-11.7) Neut % (Auto) 64.8 % % (39.3-74.2) Lymph % (Auto) 13.2 % L % (15.0-45.0) [place] % (Auto) 11.0 % % (4.5-13.0) Eos % (Auto) 9.2 % H % (0.6-7.6) Baso % (Auto) 1.4 % % (0.3-1.7) Nucleat RBC Rel Count 0.0 % % (0.0-0.2) Absolute Neuts (auto) 6.87 10^3/uL H 10^3/uL (1.70-6.50) Absolute Lymphs (auto) 1.40 10^3/uL 10^3/uL (1.00-3.00) Absolute Monos (auto) 1.17 10^3/uL H 10^3/uL (0.30-0.80) Absolute Eos (auto) 0.97 10^3/uL H 10^3/uL (0.03-0.40) Absolute Basos (auto) 0.15 10^3/uL H 10^3/uL (0.02-0.10) Absolute Nucleated RBC 0.00 10^3/uL 10^3/uL (0-0.01) Immature Gran % 0.4 % % (0.0-1.1) Immature Gran # 0.04 10^3/uL 10^3/uL (0.00-0.10) PT 14.5 SEC SEC (12.0-15.0) INR 1.14 (0.83-1.16) APTT 30.0 SEC SEC (23.0-38.0) Sodium 135 mEq/L mEq/L (134-144) Potassium 3.8 mEq/L mEq/L (3.5-5.2) Chloride 95 mEq/L L mEq/L (97-110) Carbon Dioxide 25 mEq/l mEq/l (22-31) Anion Gap 15 mEq/L mEq/L (8-16) BUN 15 mg/dL mg/dL (7-23) Creatinine 0.9 mg/dL mg/dL (0.6-1.0) Estimated GFR > 60 Glucose 90 mg/dL mg/dL (70-100) Calcium 9.6 mg/dL mg/dL (8.5-10.4) Total Bilirubin 0.7 mg/dL mg/dL (0.1-1.4) Conjugated Bilirubin 0.4 mg/dL mg/dL (0.0-0.5) Unconjugated Bilirubin 0.3 mg/dL mg/dL (0.0-1.1) AST 27 IU/L IU/L (14-46) ALT 28 IU/L IU/L (9-52) Alkaline Phosphatase 115 IU/L IU/L (38-126) Troponin I < 0.012 ng/mL ng/mL (0-0.034) Total Protein 6.8 g/dL g/dL (6.3-8.2) Albumin 3.9 g/dL g/dL (3.5-5.0) Medications Given: Discontinued Medications Sodium Chloride (Ns) 1,000 mls @ 0 mls/hr IV ONCE ONE; Wide Open PRN Reason: Protocol Stop: 06/08/17 17:04 Last Admin: 06/08/17 18:14 Dose: 1,000 mls Lorazepam (Ativan Injection) 1 mg IVP EDNOW ONE Stop: 06/08/17 17:06 Last Admin: 06/08/17 18:13 Dose: 1 mg Departure - Departure Disposition: [facility] Acute Clinical Impression: Neck pain Condition: Fair
[2017-06-08] MEDS ORDERED: NS 1,000 ML IV ONE (17:03)
[2017-06-08] MEDS ORDERED: LORazepam 2 MG/ML INJ IVP ONE (17:05)
[2017-06-08 17:13] LABS: % IMMATURE GRANULYOCYTES 0.4 % (0.0-1.1); ABSOLUTE IMMATURE GRANULOCYTES 0.04 10^3/uL (0.00-0.10); ADD DIFF? NO; ADD MORPH? NO; ADD SCAN? NO; ATYPICAL LYMPHOCYTE FLAG 10 (0-99); FRAGMENT RBC FLAG 0 (0-99); HEMOGLOBIN 13.5 g/dL (12.6-16.3); LEFT SHIFT FLG 0 (0-99); LIPEMIA HEMOLYSIS FLAG 80 (0-99); MEAN CELL HEMOGLOBIN 30.7 pg (27.9-34.1); MEAN CELL HEMOGLOBIN CONCENTR. 32.9 g/dL (32.4-36.7); MEAN CELL VOLUME 93.2 fL (81.5-99.8); MEAN PLATELET VOLUME 9.9 fL (8.7-11.7); PLATELET CLUMPS FLAG 0 (0-99); PLATELET COUNT 366 10^3/uL (150-400); RED CELL DISTRIBUTION WIDTH 13.9 % (11.5-15.2)
[2017-06-08 17:21] LABS: INR 1.14 (0.83-1.16); PROTIME(PATIENT) 14.5 SEC (12.0-15.0)
--- NOTE | 2017-06-08 17:37 | CPEKG ---
Heart Rate: 101 RR Interval: 594 P-R Interval: 168 QRSD Interval: 88 QT Interval: 340 QTC Interval: 441 P Eden: 62 QRS Eden: -47 T Wave Eden: 63 EKG Severity - ABNORMAL ECG - EKG Impression: SINUS TACHYCARDIA EKG Impression: LEFT ANTERIOR FASCICULAR BLOCK EKG Impression: LEFT VENTRICULAR HYPERTROPHY Electronically Signed By: Angel Sosa 08-Jun-2017 21:19:50
[2017-06-08 18:18] LABS: ALANINE AMINOTRANSFERASE 28 IU/L (9-52); ALBUMIN 3.9 g/dL (3.5-5.0); ALKALINE PHOSPHATASE 115 IU/L (38-126); ANION GAP 15 mEq/L (8-16); ASPARTATE AMINOTRANSFERASE 27 IU/L (14-46); BILIRUBIN,TOTAL 0.7 mg/dL (0.1-1.4); BILIRUBIN-CONJUGATED 0.4 mg/dL (0.0-0.5); BILIRUBIN-UNCONJUGATED 0.3 mg/dL (0.0-1.1); CALCIUM 9.6 mg/dL (8.5-10.4); CARBON DIOXIDE 25 mEq/l (22-31); CHLORIDE 95 mEq/L (97-110); CREATININE 0.9 mg/dL (0.6-1.0); GLOMERULAR FILTRATION RATE > 60; GLUCOSE 90 mg/dL (70-100); POTASSIUM 3.8 mEq/L (3.5-5.2); SODIUM 135 mEq/L (134-144); TOTAL PROTEIN 6.8 g/dL (6.3-8.2)
[2017-06-08 18:29] LABS: TROPONIN I < 0.012 ng/mL (0-0.034)
[2017-06-08] MEDS ORDERED: ONDANSETRON DISINTEGRATING 4 MG TAB PO PRN (23:02)
[2017-06-08] MEDS ORDERED: ONDANSETRON 4 MG/2 ML VIAL IVP PRN (23:02)
[2017-06-08] MEDS ORDERED: ALBUTEROL 200 PUFFS/18 GM MDI IH PRN (23:03)
[2017-06-08] MEDS ORDERED: ACETAMINOPHEN 325 MG TAB PO PRN (23:03)
[2017-06-08] MEDS ORDERED: ALBUTEROL 5 MG/ML INH 20 ML BTL IH PRN (23:03)
--- NOTE | 2017-06-08 23:53 | GHP ---
[f rep st] HISTORY AND PHYSICAL DATE OF ADMISSION: 06/08/2017 CHIEF COMPLAINT: Neck weakness. HISTORY OF PRESENT ILLNESS: This is a 72-year-old female who presents with neck weakness and neck p ain. She states this started in February, and since then, she has been unable to hold her head up. It has been getting progressively worse. She went to her fire lieutenant marine, who sent her here because of h er neck. She denies any trouble swallowing. She denies any arm weakness, numbness or tingling, or paresthesias. She was admitted a few weeks ago for a rash on the lower leg. Biopsy appears to be e czematous dermatitis. She denies any fevers or chills. REVIEW OF SYSTEMS: A 10-point review of systems obtained, other than stated above is negative. PAST MEDICAL HISTORY: 1. Chronic left leg wound for which she is seeing Wound Care and had a skin graft. 2. Right foot eczema. 3. History of porcine mitral valve replacement. 4. Pseudogout. 5. COPD. 6. Chronic hypoxic respiratory failure on 2 L. 7. History of PE in 2012. 8. Restless legs syndrome. 9. Hypertension. PAST SURGICAL HISTORY: Thoracoplasty, appendectomy, hysterectomy, rectocele repair. SOCIAL HISTORY: Lives in [place] by herself. Previous smoker; 1 drink per day. FAMILY HISTORY: Diabetes and hypertension. PHYSICAL EXAMINATION: VITAL SIGNS: Afebrile, blood pressure is 150/89, heart rate 92, oxygen satur ation 96% on 3 L. GENERAL: The patient is well developed, in no apparent distress. She is mildly sedated from Ativan that she received earlier. HEENT: Nonicteric sclerae. Extraocular movements i ntact. Moist mucous membranes. NECK: Tenderness to palpation. It does hurt for her to extend the neck. She has some weakness in turning her head left to right. LUNGS: Good effort. Clear to aus cultation bilaterally. CARDIOVASCULAR: Regular rate and rhythm. No murmurs, gallops. ABDOMEN: P ositive bowel sounds. Soft, nontender, nondistended. EXTREMITIES: No clubbing, cyanosi s. Left leg shows dermatitis-appearing skin with some skin peeling and scaliness. NEUROLOGIC: Arline rt and oriented x3. PSYCHIATRIC: Normal mood and affect. LABORATORY DATA: White blood cell count is 10, otherwise normal. Chemistry, LFTs, troponin are all negative. Cervical MRI shows edema associated with C6 vertebral body, edema of the endplate of C5. EKG person ally reviewed and interpreted, shows normal sinus rhythm with no ischemic changes. Chest x-ray show s no pulmonary process. ASSESSMENT: This is a 72-year-old female presenting with probable C6 fracture and weakness. PLAN: 1. C6 fracture. It is unclear to me if her neck weakness is from pain or if there is some neurolog ical involvement. Neurosurgery has been called and will see the patient in the morning. I am going to hold her Eliquis and case a surgical procedure is needed. 2. History of PE. Holding Eliquis. 3. Porcine mitral valve. 4. COPD. She is on her previous home oxygen dose. /[id number]/MODL
[2017-06-09] MEDS: AMITRIPTYLINE HCL 25 MG TAB PO SCH ×2 (00:49→21:25)
[2017-06-09] MEDS: CARVEDILOL 6.25 MG TAB PO SCH ×3 (00:49→18:20)
[2017-06-09] MEDS: LEFLUNOMIDE 20 MG TAB PO SCH ×2 (00:50→21:24)
[2017-06-09] MEDS: GABAPENTIN 100 MG CAP PO SCH ×3 (00:50→21:25)
[2017-06-09] MEDS: COLCHICINE 0.6 MG CAP/TAB PO SCH ×2 (00:50→21:24)
--- NOTE | 2017-06-09 04:24 | GCON ---
[f rep st] CONSULTATION EMERGENCY ROOM CONSULTATION DATE OF CONSULTATION: 06/08/2017 CHIEF COMPLAINT: Neck pain. Patient is unable to hold her head up. HISTORY OF PRESENT ILLNESS: Patient is a 72-year-old female, who has multiple medical issues. I was called today by her cardiology office informing me that she was unable to raise her head. She was scheduled to see Dr. Heard at [facility] on July 14 as a new patient. I advised them to send her to the emergency room for an MRI of her cervical spine. Patient states she has neck pain, mostly when she is trying to extend it. She denies any upper extremity symptoms. She has been unable to hold her neck up since February following a fall and hospital stay in January. She feels her symptoms have increased since March, and she is using a cane for ambulation for she feels and unsteady on her feet and has difficulty with balance. She denies any bowel or bladder issues. She is still on physical therapy following her hospital stay. REVIEW OF SYSTEMS: A 10-point review of systems was reviewed and negative aside for what was mentioned in patient's HPI. PAST MEDICAL HISTORY: Includes cellulitis of the left leg, which she just completed treatment for. Patient has an all over rash on her body, which she just had biopsied last week here at [facility] and results are still pending. Hypertension, COPD, rheumatoid arthritis versus pseudogout. PAST SURGICAL HISTORY: Mitral valve replacement, left clavicle fracture which severed a large vessel in her neck and required repair at [facility] trauma center, left rib fractures x6 that required ORIF, rectal prolapse. FAMILY HISTORY: Patient's father had cardiac disease and most of her paternal side of her family had cardiac disease. SOCIAL HISTORY: Patient does not smoke cigarettes. Does not do drugs. Patient does drink vodka toddy tonic 1 at night. MEDICATIONS: Include Lasix 40 mg daily, Elavil 75 mg q.h.s., Advair, Aldactone , albuterol, Ventolin, Eliquis, colchicine, gabapentin, leflunomide, ropinirole , acetaminophen, Coreg. PHYSICAL EXAMINATION: VITAL SIGNS: Patient's blood pressure is 167/92, heart rate is 109, respiratory rate is 18, oxygen saturation is 94% on 4 L nasal cannula, temperature is 36.9 degree Celsius. HEENT: Head is normocephalic and atraumatic. Pupils are equal, round, and reactive to light. EOMI is intact. Full visual viveros by confrontation. NECK : Tender and in flexion position. Limited range of motion in her cervical spine. RESPIRATORY: Deferred. CARDIAC: Deferred. ABDOMEN: Soft and nontender. GENITOURINARY: Deferred. RECTAL: Deferred. NEUROLOGIC: The patient is awake, alert, and oriented to time, person, place, location, and situation. Memory is intact to immediate past and current events. Speech: No aphasia or dysphonia. Cranial nerves 2-12 are grossly intact. Motor: Patient has 5/5 strength in all muscle groups bilateral in upper and lower extremities that includes the deltoid, biceps, triceps, brachioradialis, wrist flexion and extensors, fashion patternmaker, intrinsic fingers, iliopsoas, quadriceps, hamstrings, plantar flexion, dorsiflexion, EHL testing. Sensation is grossly intact to light touch throughout all dermatomal distributions in bilateral upper and lower extremities. Patient has a negative straight leg raise. Negative ALEJANDRO test. Reflexes: Biceps, triceps, brachioradialis, knee jerk, and ankle jerk are 2+ out of 4. Toes are downgoing bilaterally. Gee sign is negative. Babinski is negative. There is no evidence of clonus. DIAGNOSTICS: Patient is getting ready to go to MRI for an MRI of her cervical spine without contrast. ASSESSMENT AND PLAN: Patient is a 72-year-old female, who has been having a difficult time lifting her head from a flexed position since February. Patient presented to the emergency room today and will get a MRI of her cervical spine for hollins evaluation. She denies any upper extremity symptoms. She has multiple other medical issues that are ongoing, and we appreciate Medicine's input on those. It is likely that she will require cervical surgery, and we will continue to follow her and her MRI results. /[id number]/MODL MTDD
[2017-06-09] MEDS: diphenhydrAMINE 25 MG CAP PO PRN ×2 (06:39→22:57)
[2017-06-09] MEDS: SPIRONOLACTONE 25 MG TAB PO SCH (08:18)
[2017-06-09] MEDS: FUROSEMIDE 40 MG TAB PO SCH (08:18)
[2017-06-09] MEDS: FLUTICASONE/SALMETER 250/50MCG DISKUS IH SCH ×2 (10:09→21:12)
--- NOTE | 2017-06-09 11:35 | NEUSURGPN ---
Assessment/Plan: 72 yr old female unable to hold head upright, multiple medical issues, neurologically intact Plan: -MRI cervical spine demonstrates edema at C6 with mild anterior wedging/mild compression fracture, minimal subluxation C4-5, C5-6, C5 endplate bone bruise vs. modic changes and disk bulges C5-6, C6-7 -Patient will require cervical fusion, continue to hold Elaquis and other anticoagulants in preoperation-last dose was yesterday -We will defer to medicine for medical management -Continue to monitor motor exam -Call neurosurgery with any questions/concerns Dr Heard saw patient as well Subjective: Patient has neck pain with extension Objective: NAD VSS MAEx4 Motor 5/5 BUE/BLE Cervical spine tenderness to palpation, decreased cervical ROM Neuro Check Frequency: per routine Urinary Catheter in Place: No - Physician Discussed Patient with DrCarlos: Félix Patient Seen by : Félix Neurosurgery Physical Exam - Vitals, I&O, Labs I and O 06/08/17 06/09/17 06/10/17 05:59 05:59 05:59 Intake Total 1000 Balance 1000 Weight 48.988 kg Intake: IV Infused (ml) 1000 Other: Intake Quantity Yes Sufficient Number of Voids Toilet 1 Vital Signs Temp Pulse Resp BP Pulse Ox 36.6 C 92 16 129/77 H 95 06/09/17 11:08 06/09/17 11:08 06/09/17 11:08 06/09/17 11:08 06/09/17 11:08 ICD10 Worksheet Patient Problems: Problems Problem Status Onset Neck pain Acute Dyspnea Acute Lower extremity cellulitis Acute Rib fracture Acute
[2017-06-09] MEDS: TRIAMCINOLONE 0.5% 15GM CREAM TP PRN (12:04)
--- NOTE | 2017-06-09 17:09 | HOSPPROG ---
Hospitalist Progress Note Assessment/Plan: DIAGNOSES: -New C6 fracture which will require cervical fusion, neurologically stable -History of COPD, currently stable -History of porcine mitral valve, stable from cardiac standpoint at this time -History of PE -History of hypertension -History of restless leg syndrome PREOPERATIVE RISK ASSESSMENT: At this time there are no outstanding acute or recent symptomatic medical issues that require further assessment or stabilization before proceeding to surgery. She does have mildly increased risk of postoperative complications with history of COPD and PE in particular. It will important to resume anticoagulation once she is safe from a surgical standpoint in the postoperative setting, and to mobilize her as quickly as possible. Will continue to watch her respiratory status closely. PLANS: -Her anticoagulation is currently held for surgery -Will use SCDs for DVT prophylaxis and bridge with subcutaneous heparin if her surgery is delayed SUBJECTIVE: She still has the same neck pain and weakness No new neurologic symptoms No shortness of breath, chest pain, nausea OBJECTIVE Vitals reviewed: stable without fever Exam: alert oriented skin warm dry color ok resps not labored lungs clear BSs heart regular abd soft nondistended nontender, bowel sounds present limbs warm, no edema iv site ok Objective: Vital Signs Temp Pulse Resp BP Pulse Ox 36.4 C 93 16 101/57 L 96 06/09/17 15:17 06/09/17 15:17 06/09/17 15:17 06/09/17 15:17 06/09/17 15:17 06/08/17 06/09/17 06/10/17 06:59 06:59 06:59 Intake Total 1000 Balance 1000 PT 14.5 SEC (12.0-15.0) 06/08/17 15:00 INR 1.14 (0.83-1.16) 06/08/17 15:00 ICD10 Worksheet Patient Problems: Problems Problem Status Onset Neck pain Acute Dyspnea Acute Lower extremity cellulitis Acute Rib fracture Acute
[2017-06-09] MEDS ORDERED: CARVEDILOL 6.25 MG TAB PO SCH (18:00)
--- NOTE | 2017-06-09 18:36 | WOCRNPDOC ---
WOCRN Advanced Assessment Note - Skin Integrity Problem, Advanced Assess Left Lower Leg Dressing Type: Open to Air Kisha Wound Tissue: Lipodermatosclerosis, Hemosiderin Staining, Venous Dermatitis , Scarred Wound Bed Constitution: Healed Skin Integrity Problem Comment: No open wounds. Dry flakey skin and scar where a healed venous stasis ulcer was. Wound care will sign off. Apply atractain cream BID. Report to Kelly GUTIERREZ. Keep legs elevated. Discussed findings and need for compression/elevation with patient who verbalized understanding.
[2017-06-09] MEDS ORDERED: LEFLUNOMIDE 20 MG TAB PO SCH (21:00)
[2017-06-09] MEDS ORDERED: COLCHICINE 0.6 MG CAP/TAB PO SCH (21:00)
[2017-06-09] MEDS ORDERED: GABAPENTIN 100 MG CAP PO SCH (21:00)
[2017-06-09] MEDS ORDERED: AMITRIPTYLINE HCL 25 MG TAB PO SCH (21:00)
[2017-06-10] MEDS: TRIAMCINOLONE 0.5% 15GM CREAM TP PRN (04:37)
[2017-06-10] MEDS: diphenhydrAMINE 25 MG CAP PO PRN (05:29)
[2017-06-10] MEDS: GABAPENTIN 100 MG CAP PO SCH ×2 (08:46→20:57)
[2017-06-10] MEDS: SPIRONOLACTONE 25 MG TAB PO SCH (08:46)
[2017-06-10] MEDS: ACETAMINOPHEN 325 MG TAB PO PRN ×2 (08:46→23:33)
[2017-06-10] MEDS: FUROSEMIDE 40 MG TAB PO SCH (08:46)
[2017-06-10] MEDS: CARVEDILOL 6.25 MG TAB PO SCH ×2 (08:47→17:05)
[2017-06-10] MEDS: DIAZEPAM 2 MG TAB PO PRN ×3 (08:55→23:27)
--- NOTE | 2017-06-10 09:24 | NEUSURGPN ---
Assessment/Plan: 72 yr old female unable to hold head upright, multiple medical issues, neurologically intact Plan: -MRI cervical spine demonstrates edema at C6 with mild anterior wedging/mild compression fracture, minimal subluxation C4-5, C5-6, C5 endplate bone bruise vs. modic changes and disk bulges C5-6, C6-7 -Patient will require cervical fusion, continue to hold Elaquis and other anticoagulants in preoperation-last dose was yesterday -Need to evaluate how patient does with neutral position, GENERAL MAINTENANCE MECHANIC brace ordered -CT scan to eval bony quality pending -We will defer to medicine for medical management -Continue to monitor motor exam -Call neurosurgery with any questions/concerns Discussed with Dr. Yee Subjective: posterior neck pain with extension of neck. Able to move head up to eat but limitations with extension Objective: NAD A&Ox3 MAEx4 5/5 and equal in BUE and BLE. - Physician Discussed Patient with Dr.: Yee Neurosurgery Physical Exam - Vitals, I&O, Labs I and O 06/09/17 06/10/17 06/11/17 05:59 05:59 05:59 Intake Total 1000 200 Balance 1000 200 Weight 48.988 kg Intake: Oral (ml) 200 IV Infused (ml) 1000 Other: Intake Quantity Yes Yes Sufficient Number of Voids Toilet 1 Vital Signs Temp Pulse Resp BP Pulse Ox 36.5 C 97 20 148/94 H 95 06/10/17 07:53 06/10/17 08:47 06/10/17 07:53 06/10/17 08:47 06/10/17 07:53 ICD10 Worksheet Patient Problems: Problems Problem Status Onset Neck pain Acute Dyspnea Acute Lower extremity cellulitis Acute Rib fracture Acute
--- NOTE | 2017-06-10 09:36 | HOSPPROG ---
Hospitalist Progress Note Assessment/Plan: DIAGNOSES: -New C6 fracture which will require cervical fusion, neurologically stable -History of COPD, currently stable -History of porcine mitral valve, stable from cardiac standpoint at this time -History of PE -History of hypertension -History of restless leg syndrome PREOPERATIVE RISK ASSESSMENT: At this time there are no outstanding acute or recent symptomatic medical issues that require further assessment or stabilization before proceeding to surgery. She does have mildly increased risk of postoperative complications with history of COPD and PE in particular. It will important to resume anticoagulation once she is safe from a surgical standpoint in the postoperative setting, and to mobilize her as quickly as possible. Will continue to watch her respiratory status closely. At this time the patient is telling me that she is going to go with conservative treatment wearing a brace after discussion with Neurosurgery team. However, so far she has been unwilling/unable to wear the brace due to claustrophobia by her description, and the neurosurgery note from this morning does not reflect such a decision. I am therefore not clear what the plan will be until I talk further with Neurosurgery. A CT scan has been ordered by their team to evaluate her bone quality. PLANS: - I strongly encouraged the patient to do anything she can to wear the brace, and I did discuss with nursing staff the issues and requested that we get the occupational and speech language therapists to work hard with the patient on wearing the brace -Will discuss further with neuro surgery -Will need to determine whether not we resume her anticoagulation at this time based on plans to proceed with or avoid surgery SUBJECTIVE: unchanged neck pain and weakness No new neurologic symptoms No shortness of breath, chest pain, nausea OBJECTIVE Vitals reviewed: stable without fever Exam: alert oriented skin warm dry color ok resps not labored lungs clear BSs heart regular abd soft nondistended nontender, bowel sounds present limbs warm, no edema iv site ok Objective: Vital Signs Temp Pulse Resp BP Pulse Ox 36.5 C 97 20 148/94 H 95 06/10/17 07:53 06/10/17 08:47 06/10/17 07:53 06/10/17 08:47 06/10/17 07:53 06/09/17 06/10/17 06/11/17 06:59 06:59 06:59 Intake Total 1000 200 Balance 1000 200 PT 14.5 SEC (12.0-15.0) 06/08/17 15:00 INR 1.14 (0.83-1.16) 06/08/17 15:00 ICD10 Worksheet Patient Problems: Problems Problem Status Onset Neck pain Acute Dyspnea Acute Lower extremity cellulitis Acute Rib fracture Acute
[2017-06-10] MEDS: FLUTICASONE/SALMETER 250/50MCG DISKUS IH SCH ×2 (09:49→19:55)
[2017-06-10] MEDS: COLCHICINE 0.6 MG CAP/TAB PO SCH (20:56)
[2017-06-10] MEDS: LEFLUNOMIDE 20 MG TAB PO SCH (20:56)
[2017-06-10] MEDS: AMITRIPTYLINE HCL 25 MG TAB PO SCH (20:56)
[2017-06-11] MEDS ORDERED: FUROSEMIDE 40 MG TAB PO SCH (08:00)
[2017-06-11] MEDS: CARVEDILOL 6.25 MG TAB PO SCH ×2 (08:01→17:18)
[2017-06-11] MEDS: SPIRONOLACTONE 25 MG TAB PO SCH (08:01)
[2017-06-11] MEDS: ACETAMINOPHEN 325 MG TAB PO PRN ×3 (08:01→22:07)
[2017-06-11] MEDS: FUROSEMIDE 40 MG TAB PO SCH (08:02)
[2017-06-11] MEDS: DIAZEPAM 2 MG TAB PO PRN ×3 (08:02→22:07)
[2017-06-11] MEDS: GABAPENTIN 100 MG CAP PO SCH ×2 (08:02→20:57)
[2017-06-11] MEDS: FLUTICASONE/SALMETER 250/50MCG DISKUS IH SCH ×2 (08:57→22:04)
--- NOTE | 2017-06-11 11:08 | NEUSURGPN ---
Assessment/Plan: 72 yr old female unable to hold head upright, multiple medical issues, neurologically intact Plan: -MRI cervical spine demonstrates edema at C6 with mild anterior wedging/mild compression fracture, minimal subluxation C4-5, C5-6, C5 endplate bone bruise vs. modic changes and disk bulges C5-6, C6-7 -Patient tolerating neck position in IMPROVEMENT DIRECTOR, this will determine if she can tolerate neutral positioning surgical fixation will place her in -Patient may discharge home per neurosurgery, will defer to medicine for discharge -Follow up with Dr Yee in 2-3 weeks to discuss progress with brace and possible surgery -Call neurosurgery with any questions/concerns Dr Hensley saw patient as well Subjective: Patient tolerating brace this am Objective: NAD A&Ox3 MAEx4 03/18 and equal in BUE and BLE. Neuro Check Frequency: per routine Urinary Catheter in Place: No - Physician Discussed Patient with : Ayden Patient Seen by Dr.: Hensley Neurosurgery Physical Exam - Vitals, I&O, Labs I and O 06/10/17 06/11/17 06/12/17 05:59 05:59 05:59 Intake Total 200 0 Balance 200 0 Intake: Oral (ml) 200 IV Intake (ml) 0 Other: Intake Quantity Yes Yes Sufficient Number of Voids Toilet 1 Vital Signs Temp Pulse Resp BP Pulse Ox 36.6 C 79 14 119/78 95 06/11/17 09:32 06/11/17 09:04 06/11/17 09:32 06/11/17 09:32 06/11/17 09:04 ICD10 Worksheet Patient Problems: Problems Problem Status Onset Neck pain Acute Dyspnea Acute Lower extremity cellulitis Acute Rib fracture Acute
--- NOTE | 2017-06-11 18:33 | HOSPPROG ---
Hospitalist Progress Note Objective: Vital Signs Temp Pulse Resp BP Pulse Ox 36.4 C 99 16 129/79 H 96 06/11/17 16:00 06/11/17 17:18 06/11/17 16:00 06/11/17 17:18 06/11/17 16:00 06/10/17 06/11/17 06/12/17 05:59 05:59 05:59 Intake Total 200 0 0 Balance 200 0 0 PT 14.5 SEC (12.0-15.0) 06/08/17 15:00 INR 1.14 (0.83-1.16) 06/08/17 15:00 ICD10 Worksheet Patient Problems: Problems Problem Status Onset Neck pain Acute Dyspnea Acute Lower extremity cellulitis Acute Rib fracture Acute
--- NOTE | 2017-06-11 18:40 | HOSPPROG ---
Hospitalist Progress Note Assessment/Plan: The patient is a female with PMH COPD, CPPD who was admitted for neck weakness. ASSESSMENT/PLAN: C6 compression fracture Degenerative joint disease of cervical spine COPD on chronic 2 L oxygen Pseudogout History of PE, on chronic anticoagulation History of porcine mitral valve replacement Hypertension Restless leg syndrome History of chronic leg wound, healed VTE prophylaxis: Lovenox Code Status: Full Status: Inpatient for greater than 2 midnight stay. Disposition: [facility] with discharge in 1-2 days ____ SUBJECTIVE: Today patient is feeling okay. She still has some neck pain. She is getting used to the neck brace. She is reluctant to go to a rehab facility, but is willing to go if needed. OBJECTIVE: Physical Exam: General: The patient is an elderly who is alert and in no acute distress. HEENT: normocephalic, extraocular movements intact, conjunctivae clear. Mucous membranes [moist or dry]. Neck: In rigid neck brace. CV: +S1/S2, RRR, no MRG. Resp: unlabored, CTAB no RRW. Abd: soft and nondistended. Musculoskeletal: Reduce muscle tone/bulk. Neuro: cranial nerves II XII grossly intact. Intact gross motor and sensory function. Psych: Appropriate mood and appropriate affect. Skin: No pallor. No petechiae. Heme/lymph: No pitting peripheral edema at bilateral lower legs. Labs/Imaging/Other Tests: Personally reviewed/interpreted. This patient is new to me. Reviewed patient's chart/records for this visit. Objective: Vital Signs Temp Pulse Resp BP Pulse Ox 36.4 C 99 16 129/79 H 96 06/11/17 16:00 06/11/17 17:18 06/11/17 16:00 06/11/17 17:18 06/11/17 16:00 06/10/17 06/11/17 06/12/17 05:59 05:59 05:59 Intake Total 200 0 0 Balance 200 0 0 PT 14.5 SEC (12.0-15.0) 06/08/17 15:00 INR 1.14 (0.83-1.16) 06/08/17 15:00 ICD10 Worksheet Patient Problems: Problems Problem Status Onset Neck pain Acute Dyspnea Acute Lower extremity cellulitis Acute Rib fracture Acute
[2017-06-11] MEDS: LEFLUNOMIDE 20 MG TAB PO SCH (20:56)
[2017-06-11] MEDS: COLCHICINE 0.6 MG CAP/TAB PO SCH (20:56)
[2017-06-11] MEDS: AMITRIPTYLINE HCL 25 MG TAB PO SCH (20:57)
[2017-06-11] MEDS: TRIAMCINOLONE 0.5% 15GM CREAM TP PRN (22:24)
[2017-06-12] MEDS ORDERED: clonazePAM 0.5 MG TAB PO PRN (01:27)
[2017-06-12 07:01] VITALS: BP 137/91; TEMP 97.5
[2017-06-12] MEDS: FLUTICASONE/SALMETER 250/50MCG DISKUS IH SCH (08:57)
[2017-06-12 09:07] VITALS: PULSE 97; RESP 14; O2SAT 85
[2017-06-12] MEDS: SPIRONOLACTONE 25 MG TAB PO SCH (09:21)
[2017-06-12] MEDS: DIAZEPAM 2 MG TAB PO PRN (09:21)
[2017-06-12] MEDS: FUROSEMIDE 40 MG TAB PO SCH (09:21)
[2017-06-12] MEDS: CARVEDILOL 6.25 MG TAB PO SCH (09:21)
[2017-06-12] MEDS: ACETAMINOPHEN 325 MG TAB PO PRN (09:21)
[2017-06-12] MEDS: GABAPENTIN 100 MG CAP PO SCH (09:21)
--- NOTE | 2017-06-12 10:09 | PDIAF ---
- Diagnosis Diagnosis: C6 anterior compression fracture. Multilevel C spine DJD. Code Status: Full Code - Medication Management Discharge Medications: Medications to Continue on Transfer Furosemide [Lasix 40 MG (*)] 40 mg PO DAILY 02/03/16 [Last Taken 06/08/17] Amitriptyline HCl [Elavil] 75 mg PO HS #0 tab 02/14/16 [Last Taken 06/07/17] Fluticasone/Salmeter 250/50Mcg [Advair 250/50 (*)] 1 puffs IH BID #0 disk [Last Taken 05/25/17] Spironolactone [Aldactone] 50 mg PO DAILY #0 tab 02/14/16 [Last Taken 06/08/17] Albuterol Sulfate [ALBUTEROL SULFATE] 0.63 mg IH BID PRN 03/30/17 [Last Taken ] Albuterol Sulfate [Ventolin Hfa] 2 puffs IH QID PRN 03/30/17 [Last Taken Unknown ] Apixaban [Eliquis] 5 mg PO BID 03/30/17 [Last Taken 06/08/17 FIRST DOSE] Colchicine [Colchicine (*)] 0.6 mg PO HS 03/30/17 [Last Taken 06/07/17] Gabapentin 100 mg PO DAILY 03/30/17 [Last Taken 06/08/17] Gabapentin 200 mg PO HS 03/30/17 [Last Taken 06/07/17] Leflunomide 20 mg PO HS 03/30/17 [Last Taken 06/07/17] Acetaminophen [Tylenol 325mg (*)] 650 mg PO Q4HRS PRN #0 tab 03/31/17 [Last Taken Unknown] Carvedilol [Coreg (*)] 12.5 mg PO DAILY@0800 05/31/17 [Last Taken 06/08/17] Carvedilol [Coreg (*)] 18.75 mg PO DAILY@1800 05/31/17 [Last Taken 06/07/17] Apixaban [Eliquis] 5 mg PO BID #0 tab 06/12/17 [Last Taken Unknown] clonazePAM [Klonopin (*)] 0.25 - 0.5 mg PO HS PRN #0 tab 06/12/17 [Last Taken Unknown] Discharge Medications: Refer to the Discharge Home Medication list for PRN reason. - Orders Services needed: Registered Nurse, Physical Therapy, Occupational Therapy Oxygen: 3L via [place] Diet Recommendation: no restrictions on diet, fluid restriction (use comment for amount) (2.5L max daily) Diet Texture: Regular Texture Diet, Thin Liquids Weigh Patient: daily Matthew: No Juaquin Stockings Discontinue Date: yes, as tolerated Activity/Weight Bearing Restrictions: ambulate with walker. Must wear rigid cervical spine brace. May remove brace occasionally for bathing. Equipment: C spine rigid brace - Follow Up Care Current Providers and Referrals: Magali Tomlin DO [Primary Care Provider] - follow up in 2 weeks Ann Jade CNP [Certified Nurse Practioner] - follow up in 2 weeks Anatoliy Yee MD [Medical Doctor] - (Neurosurgery - follow up in 3 weeks.) Maria Victoria Armendariz MD [Medical Doctor] - (as planned) Fabrice Worrell MD [Medical Doctor] - (as planned (Service Order Dispatcher))
[2017-06-12] MEDS ORDERED: APIXABAN 5 MG TAB PO SCH (10:15)
--- NOTE | 2017-06-12 11:00 | PDDCSUM ---
Discharge Summary Discharge Summary: Date of Admission: [] Date of Discharge: [] Discharge Diagnoses: [] Admission Diagnoses: [] Consultants: [] Hospital Course: [] Physical Exam: [] Condition: [] Discharged to: [] Pertinent tests/labs/imaging: [] Medications: [] Special instructions: [] Follow up: [] [</>] 30 minutes of total time was spent on counseling and coordination of care for this patient's discharge.
== END 2017-06-12 14:06 | disposition home health service (06) | DRG 543 ==
LOC: F3E 22:54
PROVIDERS: ADMIT Internal Medicine; ATTEND Internal Medicine
DX: M84.48XA Pathological fracture, other site, initial encounter for fracture (principal); J96.11 Chronic respiratory failure with hypoxia; J44.9 Chronic obstructive pulmonary disease, unspecified; G25.81 Restless legs syndrome; I10 Essential (primary) hypertension; M50.322 Other cervical disc degeneration at C5-C6 level; M50.323 Other cervical disc degeneration at C6-C7 level; Z95.3 Presence of xenogenic heart valve; Z79.01 Long term (current) use of anticoagulants; Z99.81 Dependence on supplemental oxygen; Z87.891 Personal history of nicotine dependence; Z86.711 Personal history of pulmonary embolism
CPT/HCPCS: 92610-GN; 96374; 97116-GP; 97162-GP; 97166-GO; 97530-GO; 97530-GP; G8978-GP-CI; G8979-GP-CI; G8987-GO-CK; G8988-GO-CI; G8996-GN-CH; G8997-GN-CH; G8998-GN-CH; J2060

== ENCOUNTER 2017-07-31 13:02 | Inpatient (IN) | payer OTHER ==
--- NOTE | 2017-07-31 13:38 | EDPHY ---
HPI/HX/ROS/PE/MDM Narrative: CHIEF COMPLAINT: Neck pain, confusion, possible UTI HISTORY OF PRESENT ILLNESS: The patient is an anticoagulated 72 y/o female with a history of C6 vertebral fracture 2 months ago arriving from home complaining of neck pain and requesting her neck brace be removed. She has a history of COPD, PE, degenerative disc disease, and chronic leg wound. She was admitted 06/08/17, 2 months ago, for neck weakness that she reported had been ongoing since February and had progressed to the point of being unable to hold her head up. CT imaging at that time showed a C6 compression fracture that they opted to treat conservatively with a brace. She was discharged to a rehab facility and had follow up arranged with Dr. Yee, though it doesn't sound like she went to this appointment. She is a poor historian and is unable to provide much history or context for why she is here. She does complain of chills. No fever, chest pain, shortness of breath, palpitations, vomiting, diarrhea, urinary complaints, headache, lightheadedness. Per RN, EMS learned from patient's family members that the patient was found down in her apartment in a puddle of urine and confused today. Family believed she had a UTI and sent her to the ED for evaluation. REVIEW OF SYSTEMS: Review of systems is unobtainable from this patient because of altered mentation. PAST MEDICAL HISTORY: COPD on home O2, porcine mitral valve, history of PE - Eliquis, C6 compression fracture, degenerative joint disease of cervical spine, pseudogout, hypertension, restless leg syndrome, chronic leg wound - biopsy showed eczematous dermatitis Prior medical records reviewed including admission 06/08/17-06/12/17 for neck pain. SOCIAL HISTORY: Lives in [place] alone. Former smoker. Neurosurgeon: Dr. Heard VITAL SIGNS: Reviewed by me, HR 127, BP 105/73, 100% on O2, tachypneic with respiratory rate in the low 30s GENERAL: Elderly, shivering, in no respiratory distress. HEENT: Atraumatic. Eyes: No icterus, no injection. Mouth: moist mucous membranes. No erythema or lesions. Neck: Brace in place. LUNGS: Diminished breath sounds throughout, faint wheezes auscultated diffusely. CARDIAC: Tachycardic rate and rhythm, no rubs, murmurs or gallops. ABDOMEN: Soft, nontender, nondistended, bowel sounds normal. BACK: No CVA tenderness. EXTREMITIES: Left lower extremity is machine stamper comparison to right with erythema and edema extending from foot up to the knee anteriorly, above the knee medially , and to her mid thigh posteriorly. Warmth, erythema, and edema to right ankle. NEURO: Alert and confused, moves all extremities x4. Motor strength appears to be 5/5 throughout. Sensation intact to light touch. SKIN: Warm and dry, no rash. PSYCHIATRIC: Confused, unable to give a very coherent history, no agitation. Portions of this note were transcribed by a medical instructor. I personally performed a history, physical exam, medical decision making, and confirmed accuracy of information the transcribed note. ED Course: Plan for IV, labs, EKG, and chest x-ray. The 12 lead EKG was interpreted by myself. Tachycardic rate, significant amount of artifact, patient appears to be in sinus tachycardia on the monitor, difficult to interpret on the EKG. See hard copy and/or "tracemaster" electronic copy for interpretation. Patient's emergency department [place] [address] with a left shift, chest x-ray which demonstrates a probable lingular infiltrate, troponin elevated at 0.286 an elevated BNP at 6650. Lactic acid is 2.8. Patient's O2 sat is difficult to assess due to difficulty with tracing. She is on 3 L chronically at home. Currently she is on 4 L. sats are greater than 88- 89% the majority of the time. Severe Sepsis/Septic Shock Care Note The patient presents to the ED with tachycardia, tachypnea, lower extremity swelling and presumed cellulitis as well as possible pneumonia. The patient did have evidence of sepsis (heart rate of 133, respiratory rate 36 on my examination, white count [id number]) and also met criteria for severe sepsis. This condition was identified by myself at 2:45pm. The patients vital signs are 128 , 119/59, 34, 93%, 37.7. The patient has a venous lactic acid performed within 3 hours of the identification of severe sepsis which was found to be 2.8. The patient has blood cultures drawn and received levofloxacin and vancomycin IV, per the severe sepsis treatment protocol. 30 cc/kilogram fluid bolus was ordered. Due to the fact that the patient has a elevated BNP, this was ordered to be infused over 6 hours. Patient's course was discussed with . Patient will be admitted to Step- Down Unit. MDM: Differential diagnosis for this patient's presenting complaints was considered including but not limited to pneumonia, urinary tract infection, sepsis, influenza, cellulitis, urosepsis, COPD exacerbation, pulmonary embolism. - Data Points Imaging: I viewed and interpreted images myself Laboratory Results: Laboratory Results 07/31/17 13:25 07/31/17 13:25 Medications Given: Amitriptyline HCl (Elavil) 75 mg PO HS TANA Stop: 01/27/18 20:59 Last Admin: 08/01/17 21:23 Dose: 75 mg Apixaban (Eliquis) 5 mg PO BID TANA Stop: 01/29/18 10:44 Last Admin: 08/02/17 10:54 Dose: 5 mg Betamethasone Dipropion Augmented (Diprolene Af 0.05%) 1 sha TP HS TANA Stop: 01/28/18 20:59 Last Admin: 08/01/17 21:23 Dose: 1 sha Clonazepam (Klonopin) 0.5 mg PO HS PRN PRN Reason: RESTLESS LEG SYNDROME Stop: 01/27/18 18:41 Last Admin: 08/02/17 01:52 Dose: 0.5 mg Gabapentin (Neurontin) 100 mg PO DAILY TANA Stop: 01/28/18 08:59 Last Admin: 08/02/17 08:32 Dose: 100 mg Gabapentin (Neurontin) 200 mg PO HS TANA Stop: 01/27/18 20:59 Last Admin: 08/01/17 21:24 Dose: 200 mg Sodium Chloride (Ns) 1,000 mls @ 100 mls/hr IV CONT TANA Stop: 01/27/18 16:44 Last Admin: 08/01/17 16:34 Dose: 1,000 mls Norepinephrine 4 mg/ Dextrose 500 mls @ 0 mls/hr IV CONT TANA; Titrate PRN Reason: Protocol Stop: 01/27/18 22:59 Last Admin: 08/01/17 06:30 Dose: 500 mls Dobutamine HCl/Dextrose (Dobutamine 2000 Mcg/Ml (Premix)) 250 mls @ 0 mls/hr IV CONT TANA; Titrate PRN Reason: Protocol Stop: 01/27/18 22:59 Last Admin: 07/31/17 23:17 Dose: 250 mls Ceftriaxone Sodium/Dextrose (Rocephin 1 Gm (Premix)) 50 mls @ 100 mls/hr IV DAILY TANA PRN Reason: Protocol Stop: 09/01/17 08:59 Last Admin: 08/02/17 08:32 Dose: 50 mls Leflunomide (Arava) 20 mg PO HS TANA Stop: 01/27/18 20:59 Last Admin: 08/01/17 21:24 Dose: 20 mg Magnesium Oxide (Magnesium Oxide) 400 mg PO DAILY TANA Stop: 01/28/18 08:59 Last Admin: 08/02/17 08:32 Dose: 400 mg Miscellaneous Medication (Emollient Combination No.103 [Ceracade]) 1 sha TP DAILY TANA Stop: 01/29/18 08:59 Last Admin: 08/02/17 08:40 Dose: Not Given Miscellaneous Medication (Non-Formulary) 1 ea TP DAILY TANA Stop: 01/29/18 08:59 Last Admin: 08/02/17 08:41 Dose: Not Given Morphine Sulfate (Morphine) 0.5 - 2 mg IVP Q2 PRN PRN Reason: Pain, Severe Unable to Take PO Stop: 08/10/17 21:25 Last Admin: 08/01/17 02:04 Dose: 2 mg Oxycodone HCl (Oxycodone Ir) 5 mg PO Q4HRS PRN PRN Reason: Pain, Severe Able to Take PO Stop: 08/11/17 22:16 Last Admin: 08/02/17 10:54 Dose: 5 mg Ropinirole HCl (Requip) 4 mg PO HS TANA Stop: 01/27/18 20:59 Last Admin: 08/01/17 21:32 Dose: Not Given Fluticasone/Salmeterol (Advair) 1 puffs IH BID TANA Stop: 01/27/18 20:59 Last Admin: 08/02/17 09:16 Dose: 1 puffs Discontinued Medications Acetaminophen (Tylenol) 650 mg PO EDNOW ONE Stop: 07/31/17 15:10 Last Admin: 07/31/17 15:13 Dose: 650 mg Albuterol (Proventil Neb) 3 ml IH EDNOW ONE Stop: 07/31/17 15:33 Last Admin: 07/31/17 19:40 Dose: Not Given Albuterol/Ipratropium (Duoneb) 3 ml IH EDNOW ONE Stop: 07/31/17 14:19 Last Admin: 07/31/17 15:17 Dose: 3 ml Apixaban (Eliquis) 5 mg PO BID TANA Stop: 01/27/18 16:44 Last Admin: 08/01/17 11:18 Dose: 5 mg Sodium Chloride (Ns) 1,000 mls @ 0 mls/hr IV ONCE ONE; Wide Open PRN Reason: Protocol Stop: 07/31/17 14:47 Last Admin: 07/31/17 15:00 Dose: 1,000 mls Ceftriaxone Sodium/Dextrose (Rocephin 1 Gm (Premix)) 50 mls @ 100 mls/hr IV EDNOW ONE PRN Reason: Protocol Stop: 07/31/17 15:24 Last Admin: 07/31/17 15:14 Dose: 50 mls Levofloxacin/Dextrose (Levaquin 750 Mg (Premix)) 150 mls @ 100 mls/hr IV EDNOW ONE PRN Reason: Protocol Stop: 07/31/17 16:24 Last Admin: 07/31/17 15:31 Dose: 150 mls Sodium Chloride (Ns) 1,600 mls @ 3,200 mls/hr 30 ml/kg infuse over 30 min ( 1600 ml) IV EDNOW ONE PRN Reason: Protocol Stop: 07/31/17 15:24 Last Admin: 07/31/17 21:38 Dose: Not Given Sodium Chloride (Ns) 1,600 mls @ 266.6666 mls/hr 30 ml/kg infuse over 6 hr ( 1600 ml) IV EDNOW ONE PRN Reason: Protocol Stop: 07/31/17 21:09 Last Admin: 07/31/17 16:35 Dose: 1,600 mls Vancomycin/Sodium Chloride (Vancomycin 1 Gm (Premix)) 250 mls @ 250 mls/hr IV EDNOW ONE PRN Reason: Protocol Stop: 07/31/17 16:27 Last Admin: 07/31/17 17:48 Dose: 250 mls Sodium Chloride (Ns) 500 mls @ 0 mls/hr IV ONCE ONE PRN Reason: Wide Open Stop: 07/31/17 21:52 Last Admin: 07/31/17 22:35 Dose: 500 mls Clindamycin Phosphate/Dextrose (Cleocin 900 Mg (Premix)) 50 mls @ 100 mls/hr IV Q8HRS [facility] PRN Reason: Protocol Stop: 08/31/17 03:59 Last Admin: 08/02/17 05:33 Dose: 50 mls Calcium Gluconate (Calcium Gluconate 1 Gm (Premix)) 50 mls @ 100 mls/hr IV ONCE ONE Stop: 08/01/17 09:13 Last Admin: 08/01/17 11:28 Dose: 50 mls Potassium Chloride (Potassium Cl 20 Meq (Premix)) 50 mls @ 50 mls/hr IV Q1H [facility] Stop: 08/01/17 10:43 Last Admin: 08/01/17 10:57 Dose: 50 mls Magnesium Sulfate (Magnesium Sulf 2 Gm (Premix)) 50 mls @ 50 mls/hr IV ONCE ONE Stop: 08/01/17 09:43 Last Admin: 08/01/17 10:15 Dose: 50 mls Potassium Chloride (Potassium Cl 20 Meq (Premix)) 50 mls @ 50 mls/hr IV ONCE ONE Stop: 08/01/17 17:13 Last Admin: 08/01/17 16:33 Dose: 50 mls Calcium Gluconate (Calcium Gluconate 1 Gm (Premix)) 50 mls @ 100 mls/hr IV ONCE ONE Stop: 08/02/17 09:11 Last Admin: 08/02/17 09:50 Dose: 50 mls Methylprednisolone Sodium Succinate (Solu-Medrol) 125 mg IVP EDNOW ONE Stop: 07/31/17 15:33 Last Admin: 07/31/17 16:35 Dose: 125 mg Microbiology Results: MICROBIOLOGY 07/31/17 14:25 Blood Blood Culture - Preliminary Streptococcus Pyogenes Grp A 07/31/17 14:25 Blood Blood Panel (PCR) - Final Strep Pyogenes Group A General Time Seen by Provider: 07/31/17 13:09 Initial Vital Signs: Initial Vital Signs Temperature (C) 36.4 C 07/31/17 13:10 Heart Rate 114 H 07/31/17 13:10 Respiratory Rate 26 H 07/31/17 13:10 Blood Pressure 105/73 07/31/17 13:10 O2 Sat (%) 93 07/31/17 13:10 O2 Delivery Mode Nasal Cannula O2 (L/minute) 3 Allergies/Adverse Reactions: No Known Allergies Allergy (Verified 06/08/17 16:16) Home Medications: Medication Instructions Recorded Furosemide [Lasix 40 MG (*)] 40 mg PO DAILY 02/03/16 Amitriptyline HCl [Elavil] 75 mg PO HS #0 tab 02/14/16 Fluticasone/Salmeter 250/50Mcg 1 puffs IH BID #0 disk 02/14/16 [Advair 250/50 (*)] Spironolactone [Aldactone] 50 mg PO DAILY #0 tab 02/14/16 Albuterol Sulfate [ALBUTEROL 0.63 mg IH BID PRN 03/30/17 SULFATE] Albuterol Sulfate [Ventolin Hfa] 2 puffs IH QID PRN 03/30/17 Apixaban [Eliquis] 5 mg PO BID 03/30/17 Colchicine [Colchicine (*)] 0.6 mg PO HS 03/30/17 Gabapentin 100 mg PO DAILY 03/30/17 Gabapentin 200 mg PO HS 03/30/17 Leflunomide 20 mg PO HS 03/30/17 Acetaminophen [Tylenol 325mg (*)] 650 mg PO Q4HRS PRN #0 tab 03/31/17 Carvedilol [Coreg (*)] 12.5 mg PO DAILY@0800 05/31/17 Carvedilol [Coreg (*)] 18.75 mg PO DAILY@1800 05/31/17 Furosemide [Lasix 40 MG (*)] 40 mg PO Q3D 07/31/17 Magnesium Oxide [Magnesium Oxide 400 mg PO DAILY 07/31/17 400 mg (*)] clonazePAM [Klonopin (*)] 0.5 mg PO HS PRN 07/31/17 rOPINIRole HCL [Ropinirole HCl] 4 mg PO HS 07/31/17 Betamethasone/Propylene Glyc 1 sha TP HS 08/01/17 [Betamethasone Dp Aug 0.05% Crm] Cholecalciferol Vit D3 [Vitamin D3 1,000 units PO DAILY 08/01/17 (*)] Diazepam [Valium 2 MG (*)] 2 mg PO Q6 PRN 08/01/17 Emollient Combination No.103 1 sha TP DAILY 08/01/17 [Ceracade] Fexofenadine HCl [Katia Allergy] 180 mg PO DAILY 08/01/17 Fluocinolone 0.01% [Synalar 0.01% 1 sha TP DAILY 08/01/17 (RX)] Sennosides/Docusate Sodium 2 each PO HS 08/01/17 [Senna-Docusate Sodium Tablet] diphenhydrAMINE [Benadryl 25 MG 50 mg PO HS 08/01/17 (*)] Departure - Departure Disposition: [facility] Inpatient Acute Clinical Impression: Elevated troponin Lower extremity cellulitis Qualifiers: Laterality: left Qualified Code(s): L03.116 - Cellulitis of left lower limb Dyspnea Qualifiers: Dyspnea type: unspecified Qualified Code(s): R06.00 - Dyspnea, unspecified Pneumonia Qualifiers: Pneumonia type: due to unspecified organism Laterality: left Lung location: unspecified part of lung Qualified Code(s): J18.9 - Pneumonia, unspecified organism Sepsis Qualifiers: Sepsis type: sepsis due to unspecified organism Qualified Code(s): A41.9 - Sepsis, unspecified organism Condition: Fair Report Scribed for: Kristen Ramirez Report Scribed by: Sabrina Gutierrez Date of Report: 07/31/17 Time of Report: 13:55
[2017-07-31 13:58] LABS: ADD DIFF? YES; ADD MORPH? NO; ADD SCAN? NO; ATYPICAL LYMPHOCYTE FLAG 0 (0-99); FRAGMENT RBC FLAG 0 (0-99); HEMATOCRIT 40.1 % (38.0-47.0); HEMOGLOBIN 13.5 g/dL (12.6-16.3); LEFT SHIFT FLG 70 (0-99); LIPEMIA HEMOLYSIS FLAG 80 (0-99); MEAN CELL HEMOGLOBIN 31.4 pg (27.9-34.1); MEAN CELL HEMOGLOBIN CONCENTR. 33.7 g/dL (32.4-36.7); MEAN CELL VOLUME 93.3 fL (81.5-99.8); MEAN PLATELET VOLUME 11.3 fL (8.7-11.7); PLATELET CLUMPS FLAG 10 (0-99); PLATELET COUNT 317 10^3/uL (150-400); RED CELL DISTRIBUTION WIDTH 13.7 % (11.5-15.2)
[2017-07-31 14:02] LABS: ANION GAP 17 mEq/L (8-16); BILIRUBIN,TOTAL 0.8 mg/dL (0.1-1.4); CALCIUM 9.2 mg/dL (8.5-10.4); CARBON DIOXIDE 27 mEq/l (22-31); CHLORIDE 89 mEq/L (97-110); CREATININE 1.2 mg/dL (0.6-1.0); GLOMERULAR FILTRATION RATE 44; GLUCOSE 93 mg/dL (70-100); POTASSIUM 4.1 mEq/L (3.5-5.2); SODIUM 133 mEq/L (134-144)
[2017-07-31 14:06] LABS: INR 1.25 (0.83-1.16); PROTIME(PATIENT) 15.7 SEC (12.0-15.0)
[2017-07-31 14:07] LABS: APTT 34.1 SEC (23.0-38.0)
[2017-07-31 14:15] LABS: TROPONIN I 0.286 ng/mL (0.000-0.034)
[2017-07-31] MEDS ORDERED: IPRATROPIUM/ALBUTEROL 3 ML DEYVIAL IH ONE (14:18)
[2017-07-31 14:34] LABS: PLATELET ESTIMATE ADEQUATE (ADEQ)
[2017-07-31 14:35] LABS: KERATOCYTES 1+
[2017-07-31] MEDS ORDERED: NS 1,000 ML IV ONE (14:46)
--- NOTE | 2017-07-31 14:48 | CPEKG ---
Heart Rate: 128 RR Interval: 469 QRSD Interval: 88 QT Interval: 284 QTC Interval: 415 QRS Kidder: -56 T Wave Kidder: 84 EKG Severity - ABNORMAL ECG - EKG Impression: LEFT ANTERIOR FASCICULAR BLOCK EKG Impression: CONSIDER LEFT VENTRICULAR HYPERTROPHY EKG Impression: probable sinus tachycardia Electronically Signed By: Kristen Ramirez 31-Jul-2017 15:48:50
[2017-07-31] MEDS ORDERED: NS 1,600 ML IV ONE ×2 (14:55→15:10)
[2017-07-31 15:08] LABS: COLOR YELLOW; LEUKOCYTE ESTERASE,URINE NEGATIVE (NEGATIVE); NITRITE,URINE NEGATIVE (NEGATIVE)
[2017-07-31] MEDS ORDERED: ACETAMINOPHEN 325 MG TAB PO ONE (15:09)
[2017-07-31] MEDS ORDERED: VANCOMYCIN HCL/NORMAL SALINE 250 ML IV ONE (15:28)
[2017-07-31] MEDS ORDERED: ALBUTEROL 3 ML DEYVIAL IH ONE (15:32)
[2017-07-31] MEDS ORDERED: methylPREDNISolone SOD SUCC 125 MG/2 ML VIAL IVP ONE (15:32)
[2017-07-31 15:33] LABS: LACGHOST ORDER
[2017-07-31] MEDS ORDERED: ALTEPLASE 2 MG VIAL IVP PRN (16:37)
[2017-07-31] MEDS ORDERED: ONDANSETRON DISINTEGRATING 4 MG TAB PO PRN (16:38)
[2017-07-31] MEDS ORDERED: ONDANSETRON 4 MG/2 ML VIAL IVP PRN (16:38)
--- NOTE | 2017-07-31 16:52 | PDGENHP ---
History and Physical - Chief Complaint Acute encephalopathy - History of Present Illness Primary care provider: Dr. Magali Tomlin Primary general surgeon: Dr. Charlotte Medley Primary integration technician Dr. Brenda South HPI: 72-year-old female presenting with acute encephalopathy characterized as increased somnolence, poor responsiveness, poor concentration, with onset of symptoms over at least the past 48 hours and duration persistent thereafter. Of note, the patient transitioned home from correction facility rehab approximately a month ago. Her son has been residing with her assisting her with activities of daily living. Her son moved out of the home 1 week ago and the patient has been attempting to take care of activities of daily living on her own. Her sister has been stopping by on a regular basis to check in on the patient. The day prior to this presentation, the patient's sister noted that she was still sleeping in bed, and was difficult to arouse. The assumption was that the patient was tired, and the sister returned today, only to find the patient in the same state. The patient's son does report that she has been having difficulty with ambulation at home and has been intermittently falling. Patient reports that she has some pain located over her posterior aspect of her head, but otherwise denies any symptoms. The patient's son notes that over the past 1 week, she has developed a significant amount of erythema over her bilateral lower extremities, left greater than right. When he left the patient 1 week ago, she did not have erythema on her legs, and there were only small fissures on her posterior heels. The patient does report that she has some difficulty breathing, but this has not changed from her COPD. History Information - Allergies/Home Medication List Allergies/Adverse Reactions: No Known Allergies Allergy (Verified 06/08/17 16:16) Home Medications: Furosemide [Lasix 40 MG (*)] 40 mg PO DAILY 02/03/16 [Last Taken 06/08/17] Albuterol Sulfate [ALBUTEROL SULFATE] 0.63 mg IH BID PRN 03/30/17 [Last Taken ] Albuterol Sulfate [Ventolin Hfa] 2 puffs IH QID PRN 03/30/17 [Last Taken Unknown ] Apixaban [Eliquis] 5 mg PO BID 03/30/17 [Last Taken 06/08/17 FIRST DOSE] Colchicine [Colchicine (*)] 0.6 mg PO HS 03/30/17 [Last Taken 06/07/17] Gabapentin 100 mg PO DAILY 03/30/17 [Last Taken 06/08/17] Gabapentin 200 mg PO HS 03/30/17 [Last Taken 06/07/17] Leflunomide 20 mg PO HS 03/30/17 [Last Taken 06/07/17] Carvedilol [Coreg (*)] 12.5 mg PO DAILY@0800 05/31/17 [Last Taken 06/08/17] Carvedilol [Coreg (*)] 18.75 mg PO DAILY@1800 05/31/17 [Last Taken 06/07/17] I have personally reviewed and updated: family history, medical history, social history, surgical history - Past Medical History COPD (With chronic hypoxic respiratory failure 2 L nasal cannula) Additional medical history: Chronic lower extremity wound with history of [facility]. Pseudogout. History of pulmonary embolism in 2012. Porcine mitral valve replacement. Restless leg syndrome. Hypertension - Surgical History Additional surgical history: Thoraco plastic. Appendectomy. Hysterectomy. Rectocele surgery. Skin graft. Porcine mitral valve replacement - Family History Additional family history: Diabetes and hypertension - Social History Smoking Status: Former smoker Alcohol Use: Other (Reportedly 1 drink per night) Drug Use: None Additional social history: Currently living independently, son lives locally Review of Systems Review of Systems: ROS: 10pt was reviewed & negative except for what was stated in HPI & below Constitutional: Reports: weakness Skin: Reports: other (Erythema bilateral lower extremities with skin fissuring) Neurological: Reports: other (Somnolent, poorly arousable) Physical Exam Physical Exam: Temp Pulse Resp BP Pulse Ox 37.1 C 106 H 21 H 90/51 L 99 07/31/17 16:37 07/31/17 16:37 07/31/17 16:37 07/31/17 16:37 07/31/17 16:37 O2 (L/minute) 3 Constitutional: no apparent distress, not in pain, chronically ill appearing, uncomfortable Eyes: PERRL, anicteric sclera, EOMI Ears, Nose, Mouth, Throat: moist mucous membranes, hearing normal, ears appear normal, no oral mucosal ulcers Cardiovascular: systolic murmur (1/6 at apex), tachycardia, edema (1+ bilateral lower extremities), No irregularly irregular Respiratory: no respiratory distress, no rales or rhonchi, clear to auscultation , No respiratory distress Gastrointestinal: normoactive bowel sounds, soft, non-tender abdomen, no palpable masses, No distension Skin: other (Erythema bilateral lower extremities, left greater than right, extending proximal to the left knee, fissuring the bilateral heels with some open ulcerations, tenderness bilateral) Musculoskeletal: other (full range of motion left ankle and left knee without effusions) Neurologic: sensation intact bilaterally, other (Alert awake oriented x2 to person and place, not time), No facial droop Psychiatric: not anxious, encephalopathic (Concentration is 4/7), flat affect, poor memory, No agitated Lab Data & Imaging Review 07/31/17 13:25 07/31/17 13:25 WBC 24.85 10^3/uL (3.80-9.50) H 07/31/17 13:25 RBC 4.30 10^6/uL (4.18-5.33) 07/31/17 13:25 Hgb 13.5 g/dL (12.6-16.3) 07/31/17 13:25 Hct 40.1 % (38.0-47.0) 07/31/17 13:25 MCV 93.3 fL (81.5-99.8) 07/31/17 13:25 MCH 31.4 pg (27.9-34.1) 07/31/17 13:25 MCHC 33.7 g/dL (32.4-36.7) 07/31/17 13:25 RDW 13.7 % (11.5-15.2) 07/31/17 13:25 Plt Count 317 10^3/uL (150-400) 07/31/17 13:25 MPV 11.3 fL (8.7-11.7) 07/31/17 13:25 Neut % (Auto) Not Reported 07/31/17 13:25 Lymph % (Auto) Not Reported 07/31/17 13:25 [place] % (Auto) Not Reported 07/31/17 13:25 Eos % (Auto) Not Reported 07/31/17 13:25 Baso % (Auto) Not Reported 07/31/17 13:25 Nucleat RBC Rel Count 0.0 % (0.0-0.2) 07/31/17 13:25 Absolute Neuts (auto) Not Reported 07/31/17 13:25 Absolute Lymphs (auto) Not Reported 07/31/17 13:25 Absolute Monos (auto) Not Reported 07/31/17 13:25 Absolute Eos (auto) Not Reported 07/31/17 13:25 Absolute Basos (auto) Not Reported 07/31/17 13:25 Absolute Nucleated RBC 0.00 10^3/uL (0-0.01) 07/31/17 13:25 Immature Gran % Not Reported 07/31/17 13:25 Seg Neutrophils % 69 % 07/31/17 13:25 Band Neutrophils % 29 % 07/31/17 13:25 Lymphocytes % 1 % 07/31/17 13:25 Monocytes % 2 % 07/31/17 13:25 Immature Gran # Not Reported 07/31/17 13:25 Absolute Seg Neuts 17.15 10^/uL (1.70-6.50) H 07/31/17 13:25 Absolute Band Neuts 7.21 10^3/uL (0.00-0.70) H 07/31/17 13:25 Absolute Lymphocytes 0.25 10^3/uL (1.00-3.00) L 07/31/17 13:25 Absolute Monocytes 0.50 10^3/uL (0.30-0.80) 07/31/17 13:25 Platelet Estimate ADEQUATE (ADEQ) 07/31/17 13:25 Keratocytes 1+ H 07/31/17 13:25 PT 15.7 SEC (12.0-15.0) H 07/31/17 13:25 INR 1.25 (0.83-1.16) H 07/31/17 13:25 APTT 34.1 SEC (23.0-38.0) 07/31/17 13:25 D-Dimer 1.23 ug/mLFEU (0.00-0.50) H 07/31/17 14:25 VBG Lactic Acid 2.8 mmol/L (0.7-2.1) H 07/31/17 14:25 Sodium 133 mEq/L (134-144) L 07/31/17 13:25 Potassium 4.1 mEq/L (3.5-5.2) 07/31/17 13:25 Chloride 89 mEq/L (97-110) L 07/31/17 13:25 Carbon Dioxide 27 mEq/l (22-31) 07/31/17 13:25 Anion Gap 17 mEq/L (8-16) H 07/31/17 13:25 BUN 23 mg/dL (7-23) 07/31/17 13:25 Creatinine 1.2 mg/dL (0.6-1.0) H 07/31/17 13:25 Estimated GFR 44 07/31/17 13:25 Glucose 93 mg/dL (70-100) 07/31/17 13:25 Calcium 9.2 mg/dL (8.5-10.4) 07/31/17 13:25 Total Bilirubin 0.8 mg/dL (0.1-1.4) 07/31/17 13:25 Troponin I 0.286 ng/mL (0.000-0.034) H 07/31/17 13:25 NT-Pro-B Natriuret Pep 6650 pg/mL (0-125) H 07/31/17 13:25 Urine Color YELLOW 07/31/17 15:00 Urine Appearance CLEAR 07/31/17 15:00 Urine pH 7.0 (5.0-7.5) 07/31/17 15:00 Ur Specific [place] 1.010 (1.002-1.030) 07/31/17 15:00 Urine Protein NEGATIVE (NEGATIVE) 07/31/17 15:00 Urine Ketones NEGATIVE (NEGATIVE) 07/31/17 15:00 Urine Blood NEGATIVE (NEGATIVE) 07/31/17 15:00 Urine Nitrate NEGATIVE (NEGATIVE) 07/31/17 15:00 Urine Bilirubin NEGATIVE (NEGATIVE) 07/31/17 15:00 Urine Urobilinogen NEGATIVE EU (0.2-1.0) 07/31/17 15:00 Ur Leukocyte Esterase NEGATIVE (NEGATIVE) 07/31/17 15:00 Urine Glucose NEGATIVE (NEGATIVE) 07/31/17 15:00 Visualized and Interpreted Chest x-ray results: Yes Chest X-Ray results: other (Possible left lower lobe infiltrate without congestive heart failure) Visualized and Interpreted EKG results: Yes EKG Interpretation: Positive for: other (Sinus tachycardia) Assessment & Plan Assessment: 72-year-old female presenting with acute encephalopathy in the setting of severe sepsis, cellulitis Plan: 1. Severe sepsis. Acute, new problem this provider, further workup indicated. Evidenced by Q sofa score of 3, sofa score of 4, evidence of autonomic dysregulation in the setting of infection (cellulitis) -discussed with Dr. Kristen Ramirez, she has placed the patient on the severe sepsis protocol -initial venous lactic acid level 2.8, repeat at 5:00 p.m., then q.4 hours thereafter -systolic blood pressure in the 80s, will adjust the fluids to a faster rate and bolus in the rest of this L, then repeat lactic acid as above -get PICC line and do CVP monitoring, night, in the interim -hold on pressors, gauge effect of IV fluids -empiric IV antibiotics with levofloxacin and vancomycin 2. Cellulitis. Left lower extremity, and entry point is the posterior heel with skin fissuring ulcerations -reviewed outside records including 05/04/2017 Wound Care appointment with Kailey Crane and Dr. Charlotte Medley, reports that the leg wounds were almost healed, patient was on Maryam and even at that time -significant leukocytosis, repeat CBC in a.m. -wound care consultation, will contact 4 wound assessment -initiated on vancomycin, continue q.12 hours 3. Possible pneumonia. Possible left lower lobe/lingular infiltrate on chest x- ray, believe that the patient's severe sepsis secondary to her cellulitis and not actual pneumonia, will repeat chest x-ray in the a.m. to gauge whether there is an overt infiltrate, and if there is not any clear evidence, may get noncontrast chest CT -initiated on levofloxacin in the emergency department, continue until information above ascertained 4. Acute kidney injury. Secondary to renal hypoperfusion in the setting of severe sepsis, give IV normal saline, monitor urine output, repeat creatinine level in a.m. 5. Hyponatremia. Acute, secondary to hypoperfusion in the setting of above, give IV fluids and recheck level in a.m. 6. Acute encephalopathy. Evidenced by global brain dysfunction characterized as somnolence, poor arousability, disorientation, all of which is an acute change from her baseline per her son, secondary to the toxic effects of infection and metabolic effects of acute kidney injury -continue to monitor mental status closely 7. Chronic hypoxic respiratory failure. Secondary to COPD, continue on supplemental oxygen, monitor for reactive airways 8. Abnormal troponin. Secondary to end-organ dysfunction in the setting of severe sepsis, patient may require stress test prior to discharge, continue to cycle troponin levels 9. History of pulmonary embolism. In 2013, patient has been on Eliquis since, she is unclear as to whether she has been taking this medication recently -asked the son to get her pillbox to determine whether she has been adherent to this medication recently, as non adherence could result in DVT which could account for some of her lower extremity findings -will reinitiate Eliquis at this time 10. Metabolic acidosis. Acute, secondary to lactic acid, repeating lactic acid level now Diet. Cardiac Prophylaxis. High risk patient, on Eliquis Code. Full per patient and son, her son Iraj is her MPOA Disposition. Anticipated discharge uncertain this time, anticipated length stay is greater than 48 hours for reasonable medical necessity including severe sepsis, requiring ICU level of care. 45 minutes of critical care time spent with this patient, addressing the issues above, she is high risk of worsening morbidity and/or mortality and critically ill at this time.
[2017-07-31] MEDS ORDERED: ALBUTEROL 200 PUFFS/18 GM MDI IH PRN (19:00)
[2017-07-31] MEDS ORDERED: ALBUTEROL 3 ML DEYVIAL IH PRN (19:00)
[2017-07-31 19:57] LABS: MIXED VENOUS O2 SATURATION 60 % (65-75)
[2017-07-31] MEDS: NS 1,000 ML IV SCH (20:58)
[2017-07-31 21:15] LABS: MIXED VENOUS O2 SATURATION 65 % (65-75)
[2017-07-31] MEDS: LEFLUNOMIDE 20 MG TAB PO SCH (21:26)
[2017-07-31] MEDS: APIXABAN 5 MG TAB PO SCH ×2 (21:26→21:36)
[2017-07-31] MEDS: AMITRIPTYLINE HCL 25 MG TAB PO SCH (21:26)
[2017-07-31] MEDS: GABAPENTIN 100 MG CAP PO SCH (21:27)
[2017-07-31] MEDS ORDERED: NS 500 ML IV ONE (21:51)
[2017-07-31 22:17] LABS: MIXED VENOUS O2 SATURATION 57 % (65-75)
[2017-07-31] MEDS: FLUTICASONE/SALMETER 250/50MCG DISKUS IH SCH (22:20)
[2017-07-31] MEDS: clonazePAM 0.5 MG TAB PO PRN (22:47)
[2017-07-31] MEDS: NOREPINEPHRINE BITARTRATE 4 MG in D5W 500 ML IV SCH (22:47)
[2017-07-31] MEDS ORDERED: DOBUTamine/DEXTROSE 250 ML IV SCH (23:00)
[2017-07-31 23:21] LABS: MIXED VENOUS O2 SATURATION 73 % (65-75)
[2017-08-01] MEDS ORDERED: INSULIN REGULAR HUMAN 100 UNIT in NS 100 ML IV SCH (01:00)
[2017-08-01] MEDS: CLINDAMYCIN 900 MG/DEXTROSE 50 ML IV SCH ×3 (04:12→21:24)
[2017-08-01 06:29] LABS: ADD DIFF? YES; ADD MORPH? NO; ADD SCAN? NO; ATYPICAL LYMPHOCYTE FLAG 0 (0-99); FRAGMENT RBC FLAG 20 (0-99); HEMATOCRIT 27.4 % (38.0-47.0); HEMOGLOBIN 8.7 g/dL (12.6-16.3); LEFT SHIFT FLG 80 (0-99); LIPEMIA HEMOLYSIS FLAG 80 (0-99); MEAN CELL HEMOGLOBIN 31.2 pg (27.9-34.1); MEAN CELL HEMOGLOBIN CONCENTR. 31.8 g/dL (32.4-36.7); MEAN CELL VOLUME 98.2 fL (81.5-99.8); MEAN PLATELET VOLUME 10.4 fL (8.7-11.7); PLATELET CLUMPS FLAG 10 (0-99); PLATELET COUNT 214 10^3/uL (150-400); RED BLOOD CELL COUNT 2.79 10^6/uL (4.18-5.33); RED CELL DISTRIBUTION WIDTH 14.2 % (11.5-15.2)
[2017-08-01] MEDS: NOREPINEPHRINE BITARTRATE 4 MG in D5W 500 ML IV SCH (06:30)
[2017-08-01] MEDS: NS 1,000 ML IV SCH ×2 (06:35→16:34)
[2017-08-01 06:47] LABS: ALANINE AMINOTRANSFERASE 40 IU/L (9-52); ALKALINE PHOSPHATASE 47 IU/L (38-126); ANION GAP 7 mEq/L (8-16); ASPARTATE AMINOTRANSFERASE 122 IU/L (14-46); BILIRUBIN,TOTAL 0.3 mg/dL (0.1-1.4); CARBON DIOXIDE 19 mEq/l (22-31); CHLORIDE 102 mEq/L (97-110); CREATININE 0.7 mg/dL (0.6-1.0); GLOMERULAR FILTRATION RATE > 60; GLUCOSE 332 mg/dL (70-100); MAGNESIUM 1.2 mg/dL (1.6-2.3); SODIUM 128 mEq/L (134-144); TOTAL PROTEIN 4.4 g/dL (6.3-8.2)
[2017-08-01 06:58] LABS: TROPONIN I 0.131 ng/mL (0.000-0.034)
[2017-08-01 07:00] LABS: CALCIUM 5.5 mg/dL (8.5-10.4)
[2017-08-01] MEDS ORDERED: PROTOCOL CALCIUM 1 DOSE IV PRN (07:06)
[2017-08-01] MEDS ORDERED: PROTOCOL POTASSIUM 1 DOSE MISC PRN (07:08)
[2017-08-01] MEDS ORDERED: PROTOCOL MAGNESIUM 1 DOSE IV PRN (07:08)
[2017-08-01 07:16] LABS: PLATELET ESTIMATE ADEQUATE (ADEQ); TOXIC GRANULATION PRESENT
[2017-08-01 07:44] LABS: IONIZED CALCIUM 0.93 MMOL/L (1.12-1.30)
[2017-08-01] MEDS ORDERED: MAGNESIUM SULF 2 GM/WATER 50 ML IV ONE (08:44)
[2017-08-01] MEDS ORDERED: CALCIUM GLUCONATE 50 ML IV ONE (08:44)
[2017-08-01] MEDS: FLUTICASONE/SALMETER 250/50MCG DISKUS IH SCH ×2 (09:12→20:36)
[2017-08-01] MEDS: POTASSIUM Cl (KCl) 50 ML IV SCH ×2 (10:15→10:57)
[2017-08-01 10:31] LABS: HEMATOCRIT 28.8 % (38.0-47.0); HEMOGLOBIN 9.2 g/dL (12.6-16.3)
[2017-08-01] MEDS: MAGNESIUM OXIDE 400 MG TAB PO SCH (11:18)
[2017-08-01] MEDS: GABAPENTIN 100 MG CAP PO SCH ×2 (11:18→21:24)
[2017-08-01] MEDS: APIXABAN 5 MG TAB PO SCH (11:18)
--- NOTE | 2017-08-01 12:54 | WOCRNPDOC ---
ARN[facility] Advanced Assessment Note - Skin Integrity Problem, Advanced Assess Left Buttock Dressing Type: Open to Air Skin Integrity Problem Comment: Old scar visibile but blanching. Mild intertrigenous dermatitis in cleft. No concerns. No pressure injury present. Left Hip Pressure Injury Dressing Type: Open to Air Exudate Amount: Minimal Exudate Color: Yellow Exudate Characteristic(s): Serous Kisha Wound Tissue: Erythema, Non-blanching Wound Bed Color: [place], Purple, Red Wound Bed Constitution: Smooth Tissue (approx 1x1x0.1), De-roofed Serous Blister (approx: 3x3x0) Site Measurement - Head-to-Toe Length X Width X Depth (cm): 14x7x0.1 Pressure Injury Stage: Stage 1, Stage 2, Deep Tissue Injury (DTI) Pressure Injury Present on Admit: Yes Skin Integrity Problem Comment: Evolving deep tissue injury (5x5x0 approximately ) likely mixed with contusion in area. Some areas are opening at this time. Most of the remainder of the wound is stage 1. Wound care will round again next week. Cover area with large allevyn life. dressing. Bilateral Foot Dressing Type: Open to Air Exudate Amount: Scant Exudate Characteristic(s): Serosanguinous (dried) Kisha Wound Tissue: Erythema, Xerotic Kisha Wound Swelling: Moderate Wound Bed Constitution: Scab Wound Edges: Attached Skin Integrity Problem Comment: Multiple fissures (2x0.5x0.1)on bilateral feet, both dorsal and pedal. Some are quite large. There is also erythema extending from the feet proximally toward the knees. Erythema had been marked previously with sharpie. Patient needs extensive moisturizing with Atractain cream. Bilateral heels blanching no pressure involvement. Heels are offloaded on pillows. Marie GUTIERREZ and Xiomy SPIRAL TUBE WINDER HELPER in room for care.
--- NOTE | 2017-08-01 13:15 | ASMTCASEMG ---
Living Arrangements What is your living Answers: Alone arrangement? Who do you live with? Discharge Plan Comments Coordination Status Comments Notes: Patient admitted with acute encephalopathy. Approximately 5 weeks ago, she was discharged from [facility] (dx cervical compression fracture) to [facility] where she spent one month rehabbing. She was discharged home, where her son stayed with her for a week. When he left, she spent a week alone with her sister checking in occasionally and was unable to manage her care. Labs/imaging/evals all pending - PT/OT/AURIST ordered. CM will follow for discharge planning. Date Signed: 08/01/2017 01:14 PM Electronically Signed By:Simran Buitrago RN
[2017-08-01 14:47] LABS: POTASSIUM 3.9 mEq/L (3.5-5.2)
--- NOTE | 2017-08-01 15:19 | SOAPPROG ---
SOAP Progress Note Assessment/Plan: Assessment: Plan: Subjective: Patient tells me today she feels much better. She is not having chest pain jaw pain arm pain She intermittently has a history of shortness of breath She has just recently at a snf facility She has had major neuro surgical surgery and she is trying to recover from this. She does not have nausea vomiting She is not having trouble with medicines she tells me. She has no palpitations Not lightheaded or dizzy. With I tried he a high lead he he wake okay to march he okay and Dr. mosher of [facility] okay set the and I will see heart she do a all summer a he a 1 he okay high he consented to me at Objective: Vital Signs Temp Pulse Resp BP Pulse Ox 36 C 106 H 16 112/72 98 08/01/17 13:00 08/01/17 13:00 08/01/17 13:00 08/01/17 13:00 08/01/17 13:00 Laboratory Results 08/01/17 10:25 08/01/17 13:25 07/31/17 08/01/17 08/02/17 05:59 05:59 05:59 Intake Total 7348.3 Output Total 680 300 Balance 6668.3 -300 PT 15.7 SEC (12.0-15.0) H 07/31/17 13:25 INR 1.25 (0.83-1.16) H 07/31/17 13:25 Physical Exam - Physical Exam General Appearance: mild distress Neck: limited range of motion, No non-tender, No full range of motion, No normal inspection Respiratory: decreased breath sounds, rhonchi Cardiac/Chest: regular rate, rhythm, tachycardia Abdomen: non-tender, soft Extremities: No normal range of motion, No calf tenderness Neuro/Psych: normal mood/affect ICD10 Worksheet Patient Problems: Problems Problem Status Onset Dyspnea Acute Elevated troponin Acute Lower extremity cellulitis Acute Pneumonia Acute Sepsis Acute Neck pain Acute Rib fracture Acute
--- NOTE | 2017-08-01 15:36 | HOSPPROG ---
Hospitalist Progress Note Assessment/Plan: 72 yo F w/ hx of COPD and recent c6 compression fracture presenting with AMS and severe sepsis/septic shock # septic shock: patient meeting criteria for severe sepsis and progressed to septic shock now on NE for pressure support. PICC in place, still with significant leukocytosis. ? LLE cellulitis versus PNA. Cultures pending. Initially placed on vanc/levofloxacin and now clindamycin. ID consulted. Currently improving from HD standpoint, lactate cleared. # LLL PNA: noted on personal review of serial cxr, high risk for aspiration given c collar in place prior to admission, started on clindamycin, LABOR TRAINER to evaluate # ? cellulitis: with bilateral erythema not clear if this is truly cellulitis verus venous stasis dermatitis, vanc was d/c'ed overnight and will continue to hold for now, ID consulted, wound following # anemia: drop in h/h overnight fairly significant and now lower than her usual baseline, no e/o active bleeding, consider ct a/p if continues to decline to evaluate for occult retroperitoneal bleed, will check iron studies and stool occult blood. will hold apixiban for now. # groin pain: patient notes that this has been present x 1 year and she has been evaluated for it in the past without clear etiology found, as above, UA without blood or e/o infection # hoda: in setting of septic shock, resolved with fluid resucitation # acute encephalopathy: present on admission but resolved overnight, likely toxic metabolic related to sepsis # elevated trop: appreciate cardiology evaluation, likely demand # h/o PE--still on apixaban, holding given new onset anemia # c6 compression fracture: nsg cleared for removal of c collar # IP status, patient critically ill requiring pressor support in ICU Care plan reviewed with Dr. Worrell and multidisciplinary care team on rounds. Patient new to my care. Old records reviewed and summarized as per above. Subjective: no significant overnight events, patient is currently feeling better than yesterday, still quite weak Objective: Vital Signs Temp Pulse Resp BP Pulse Ox 36 C 106 H 16 112/72 98 08/01/17 13:00 08/01/17 13:00 08/01/17 13:00 08/01/17 13:00 08/01/17 13:00 Laboratory Results 08/01/17 10:25 08/01/17 13:25 07/31/17 08/01/17 08/02/17 05:59 05:59 05:59 Intake Total 7348.3 Output Total 680 300 Balance 6668.3 -300 PT 15.7 SEC (12.0-15.0) H 07/31/17 13:25 INR 1.25 (0.83-1.16) H 07/31/17 13:25 chronically ill appearing anicteric op clear rrr tachy no mrg cta lll rhonchi soft nt nd no cce warm dry well perfused oriented appropriate ICD10 Worksheet Patient Problems: Problems Problem Status Onset Dyspnea Acute Elevated troponin Acute Lower extremity cellulitis Acute Pneumonia Acute Sepsis Acute Neck pain Acute Rib fracture Acute
[2017-08-01] MEDS ORDERED: levOFLOXACIN 500 MG/DEXTROSE 100 ML IV SCH (16:00)
[2017-08-01] MEDS ORDERED: POTASSIUM Cl (KCl) 50 ML IV ONE (16:14)
--- NOTE | 2017-08-01 17:29 | GCON ---
[f rep st] CONSULTATION DATE OF CONSULTATION: 08/01/2017 HOSPITAL COURSE, HISTORY, AND MAJOR MEDICAL FINDINGS: The patient is a 72-year-old female who is wel l-known to [facility] and Dr. Yee's office. She was recently seen in [facility] on June 09 for complaints of neck pain and inability to hold her neck u p. 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 She underwent imaging which demonstrated some edema at the C6 vertebral body with mild anterior wedging and compression fracture with minimal subluxation of C4-C5 and C5-C6 and C5 endplates. Based on this, she was placed in a ASSEMBLYMAN OR WOMAN brace to see how she would tolerate her head being in neutral position. It was discussed with the family at that time, that machuca rgical correction for this would neutralize the patient's head and we needed to determine if she was able to tolerate this. She was fitted for a ASSEMBLYMAN OR WOMAN brace and then discharged to rehab. The patient has been at a rehabilitation facility and was released from a long-term approximately 1 month ago. Her son was there to help her with daily activities but moved out approximately 1 week ago and her sister has been periodically checking on her. The sister went to check on the patient on 07/31/2017 and found the patient was down. She was unsure about for how long and she was difficult to arouse. The sister had noted that she had been having some difficulty with ambulation at home and been interm ittently falling over her time period at home. She had a significant amount of erythema and swelling all over her bilateral legs and she was having some mild difficulty with breathing. Upon seeing the patient today in the ICU, the patient is awake, alert and oriented. Her sister who is at bedside do es state that the patient has had some extreme difficulty with swallowing since wearing the ASSEMBLYMAN OR WOMAN brace . She denies any new arm numbness, tingling, pain or weakness. Denies any new loss of bowel or blad arslan control. REVIEW OF SYSTEMS: Negative other than what is stated in the HPI. Please see for pertinent negative s and pertinent positives. PAST MEDICAL HISTORY: Significant for COPD, chronic lower extremity wound, pseudogout, history of pu lmonary embolism, porcine mitral valve replacement, restless legs syndrome, and hypertension. PAST SURGICAL HISTORY: Significant for an appendectomy, hysterectomy, rectocele repair, skin graft, and porcine mitral valve replacement. FAMILY HISTORY: Significant for diabetes and hypertension. SOCIAL HISTORY: The patient is a former smoker. She does drink approximately 1 alcoholic drink per day. She is currently living by herself but her sister and her son live locally. ALLERGIES: No known drug allergies. HOME MEDICATIONS: Include Lasix 40 mg 1 p.o. daily, albuterol inhaler b.i.d. as needed, Eliquis 5 mg 1 p.o. b.i.d., colchicine 0.6 mg 1 p.o. q.h.s., gabapentin mg p.o. q. day and 200 mg p.o. q.h.s., Le flunomide 20 mg 1 p.o. q.h.s., Coreg 12.5 mg 1 p.o. q. day in the morning and 18.75 mg at 1800. PHYSICAL EXAMINATION: GENERAL: The patient is in no acute distress. She is alert and oriented. ALISON SIGNS: BP is 112/72, heart rate is 106, respiratory rate is 16. She is 98% on 4 L nasal cannula and her temperature is 36.0. NEUROLOGIC: The patient is a 5- diffusely but equal in her bilateral upper extremities including her deltoids, triceps, biceps, wrist flexors, extensors, interossei, intr insic clinical program consultant. iliopsoas, hamstrings quadriceps, plantar flexion, dorsiflexion, EHL. She do es have redness in her bilateral lower extremities and swelling. 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 At this poi nt in time, it was discussed with both Dr. Hensley and Dr. Yee that is okay to remove the patient's ASSEMBLYMAN OR WOMAN brace at this time. We will go ahead and we will order cervical x-rays to check for overall alig nment. However, at this point in time, the patient is very sick and would not be an appropriate surg ical candidate to correct her [id number] deformity. We will continue to follow. Would recommend q.4 hours neuro checks. If the patient has any change in neurologic or motor exam, please notify Neurosurgery. /[id number]/MODL
[2017-08-01] MEDS ORDERED: VANCOMYCIN 750 MG in D5W 150 ML IV SCH (18:00)
--- NOTE | 2017-08-01 18:14 | GCON ---
[f rep st] CONSULTATION PULMONARY CRITICAL CARE CONSULTATION. DATE OF CONSULTATION: 08/01/2017 REASON FOR CONSULTATION: Intensive care unit evaluation and management of sepsis secondary to cellul itis. HISTORY: The patient is a 72-year-old with multiple underlying medical problems. She was found down at home confused yesterday and poorly responsive yesterday. [facility] She was given fluids and started on antibiotics for severe sepsis. Blood pressure was low on admission. Her recent history is remarkable for a C6 fracture approximately 2 months ago for whi ch she was placed in a hard collar. This was to be removed a week or so ago but has been left in [facility]. She has multiple medical problems including COPD, chronic hypoxemia, previous pulmonary embolism on chronic anticoagulation, and lower extremity dermatitis and cellulitis. She was given antibiotics in the emergency department, intravenous fluids, and admitted to the intens rere care unit. Initial lactate was 2.8. Levofloxacin and vancomycin were initiated. Since admission, her mental status has improved considerably. She appears to be close to her baselin e. She is complaining of some shortness of breath; however, this is chronic. She denies any cough o r mucus. She has no chest pain. She is anxious to get her hard collar off. Swallow evaluation has been performed and she did not do well with thin liquids. She remains n.p.o. PAST MEDICAL HISTORY: Remarkable as noted in the HPI. Specifically, problems include COPD, pulmonar y embolism, anticoagulation, lower extremity cellulitis and a poorly healing leg wound, recent cervic al fracture, systemic hypertension, and previous mitral valve surgery/replacement. Medications on admission included ropinirole, Klonopin, spironolactone, gabapentin, leflunomide, Lasi x, Advair, colchicine, carvedilol, Eliquis, Elavil, albuterol by metered-dose inhaler or nebulizer. a nd p.r.n. Tylenol. She uses oxygen 06/06. She quit smoking many years ago. SOCIAL HISTORY: She lives independently, recently released from a senior care facility. She smo ked cigarettes in the past. She apparently has 1 drink per night. She has a supportive family who l rere nearby. She does have difficulty ambulating but does get around at home. FAMILY HISTORY: Noncontributory. REVIEW OF SYSTEMS: Negative except as mentioned above. PHYSICAL EXAMINATION: GENERAL: Reveals an elderly woman looking older than her stated age. A hard collar is in place. Nasal cannula oxygen is in place. She has obvious cellulitis of the lower extre mities. VITAL SIGNS: Blood pressure is 112/72, heart rate 105 with sinus tachycardia on the monitor . She is afebrile. Respiratory rate is approximately 20. On 4 L, saturations are 98%. HEENT: Rem arkable for somewhat dry mucous membranes. The hard collar appears uncomfortable. Jugular venous di stention cannot be assessed. CHEST: Reveals decreased breath sounds bilaterally with some mild isaiah estion present. HEART: Tachycardic. There is a systolic murmur. There are no gallops. ABDOMEN: Soft, nontender. Bowel sounds are diminished but present. : A Matthew catheter is in place. Urine output is present. NEUROLOGIC: Nonfocal. She is globally weak. Sensation appears to be intact. Cognition is improving. DATABASE: CT scan of the head on admission was unremarkable for any acute findings. Chest x-ray, owed some left basilar atelectasis versus possible small infiltrate. Abdominal x-ray earlier today w as unremarkable. LABORATORY: White blood cell count is 20,000, hematocrit 28.8, platelets 214,000. PT and PTT are no rmal. Blood lactate done this morning was normal. Sodium was 128, potassium 3.0, CO2 19, anion gap 7. BUN is 16 with creatinine 0.7. Glucoses have been elevated between 100 and 300 range. Calcium t his morning was 5.5, magnesium 1.2, AST 122, ALT 40. Troponin was 0.13, BNP 3350. Albumin 2.0. Uri nalysis on admission was negative. Blood culture on admission is growing group A strep from 1 bottle . Respiratory viral panel was sent and was negative for the organisms screened. ASSESSMENT: 1. Severe sepsis. This has improved. She received intravenous fluids and appropriate antibiotics. She is not requiring pressor therapy. She is growing a group A strep from her blood. This may be s econdary to a cellulitic skin source, with other seemingly less likely. She has no clinical evidence of pneumonia. 2. Abnormal mental status, secondary to infection and sepsis as outlined above. 3. Underlying chronic obstructive pulmonary disease. She seems to be close to her baseline. There is no evidence of pneumonia or a definite bronchitic exacerbation. 4. History of pulmonary embolism on anticoagulation with Eliquis. 5. Metabolic; hyponatremia, hypokalemia, and hypocalcemia are present. 6. Status post recent spinal fracture. Hopefully, her hard collar can be removed today. PLAN AND RECOMMENDATIONS: The patient will be kept in the intensive care unit for now. Intravenous fluids will be continued. Antibiotics will be continued. Her usual medications will be continued. I will have Neurosurgery address the need for her hard collar going forward. Speech evaluation will be put on hold until tomorrow when the collar hopefully will be removed and after her nasogastric tub e has been taken out. Further plans and recommendations will be made based on her progress over the next 12-24 hours. /[id number]/MODL
--- NOTE | 2017-08-01 20:04 | GCON ---
[f rep st] CONSULTATION INPATIENT INFECTIOUS DISEASE CONSULTATION REFERRING PHYSICIAN: Savage Shah MD REASON FOR REFERRAL: Sepsis, group A strep bacteremia. HISTORY OF PRESENT ILLNESS: The patient is a 72-year-old female who was admitted to [facility] due to presentation with acute confusion and encephalopathy. This was fairly acute in prese ntation over the past 48 hours. Evaluation in the emergency room revealed a significant leukocytosis to 25,000. She was started on multiple antibiotics including vancomycin, Levaquin, clindamycin. We are now consulted for recommendations on antibiotic management. The patient is resting comfortably in her hospital room. She is extubated. No new complaints. PAST MEDICAL HISTORY: 1. COPD. 2. Chronic lower extremity wound. 3. Pseudogout. 4. Pulmonary embolism. 5. History of mitral valve replacement. 6. Restless legs syndrome. 7. Hypertension. PAST SURGICAL HISTORY: 1. Status post appendectomy. 2. Status post hysterectomy. 3. Status post rectocele repair. 4. Status post skin graft. 5. Status post porcine prosthetic valve, mitral valve replacement. ANTIBIOTICS: 1. Clindamycin. 2. Vancomycin. 3. Levaquin. ALLERGIES: No known medical allergies. SOCIAL HISTORY: No significant tobacco, alcohol or drug use noted. FAMILY HISTORY: Noncontributory. REVIEW OF SYSTEMS: Other than that detailed above in History of Present Illness, a comprehensive 10- system review is negative. PHYSICAL EXAMINATION: VITAL SIGNS: Temperature maximum is 36, temperature current is 36.4, heart ra te is 102, respiratory rate is 16, blood pressure 93/58. GENERAL: The patient is a well-formed, wel l-nourished, older female, in no acute distress. She is not toxic in appearance. She is alert and o riented x3. She has a pleasant demeanor. HEENT: Normocephalic for age. Atraumatic. No scleral ic terus. No oral lesion. No drainage from the nares. Eyes: Lids and conjunctivae within normal limi ts. Pupils are equal and round bilaterally. NECK: Supple. No meningismus. LUNGS: Clear to auscu ltation bilaterally. Good effort. HEART: Regular rate and rhythm. No murmur, rub, or gallop noted . No significant peripheral edema. SKIN: Warm and dry to the touch. No rash or lesion noted. MUS CULOSKELETAL: No muscle tenderness is noted. No joint line effusion or arthritis seen. NEURO: Salon Coordinator nial nerves 2-12 seem to be intact. Peripheral sensation seems intact in extremities. LABORATORY DATA: The patient has a CBC dated 08/01/2017, shows a white blood cell count of 20.0, hem oglobin of 8.7, hematocrit of 27.4, platelet count of 214, differential shows left shift with 62% seg ment neutrophils, 34% band forms. Serum chemistries dated 08/01/2017, shows a sodium 128, potassium 3.0, chloride of 102, bicarbonate of 19, BUN of 16, creatinine of 0.7. AST is 122, ALT is 40. Urina lysis on 07/31/2017 is negative. MICROBIOLOGIC DATA: Patient's blood culture dated 07/31/2017 shows group A strep. RADIOLOGIC DATA: Patient has a chest x-ray dated 08/01/2017, which shows mild pulmonary edema and an asymptomatic pleural parenchymal opacity in the left lower lobe. ASSESSMENT: Group A strep bacteremia and sepsis secondary to lower extremity cellulitis. Will disco ntinue vancomycin and Levaquin. We will continue with clindamycin and add ceftriaxone 1 g IV q.24 ho urs. We will continue to follow patient's clinical course. PLAN: 1. Continue clindamycin. 2. Discontinue vancomycin and Levaquin. 3. Start ceftriaxone 1 g daily. 4. Follow clinical improvement. /[id number]/MODL
[2017-08-01 20:43] LABS: POTASSIUM 4.2 mEq/L (3.5-5.2)
[2017-08-01 20:52] LABS: TOTAL IRON BINDING CAPACITY 230 ug/dL (260-490)
[2017-08-01 21:07] LABS: % SATURATION 4 % (20-55); IRON < 10.1 mcg/dL (37.0-170.0)
[2017-08-01] MEDS: BETAMETHASONE AUGMENTED 0.05% 15GM CREAM TP SCH (21:23)
[2017-08-01] MEDS: AMITRIPTYLINE HCL 25 MG TAB PO SCH (21:23)
[2017-08-01] MEDS: LEFLUNOMIDE 20 MG TAB PO SCH (21:24)
[2017-08-02 00:41] LABS: POTASSIUM 4.4 mEq/L (3.5-5.2)
[2017-08-02] MEDS: oxyCODONE IR 5 MG TAB PO PRN ×4 (01:51→19:46)
[2017-08-02] MEDS: clonazePAM 0.5 MG TAB PO PRN (01:52)
[2017-08-02] MEDS: CLINDAMYCIN 900 MG/DEXTROSE 50 ML IV SCH (05:33)
[2017-08-02 06:02] LABS: IONIZED CALCIUM 1.11 MMOL/L (1.12-1.30)
[2017-08-02 06:03] LABS: % IMMATURE GRANULYOCYTES 1.3 % (0.0-1.1); ABSOLUTE IMMATURE GRANULOCYTES 0.19 10^3/uL (0.00-0.10); ADD DIFF? NO; ADD MORPH? NO; ADD SCAN? NO; ATYPICAL LYMPHOCYTE FLAG 10 (0-99); FRAGMENT RBC FLAG 0 (0-99); HEMATOCRIT 29.1 % (38.0-47.0); HEMOGLOBIN 9.2 g/dL (12.6-16.3); LEFT SHIFT FLG 20 (0-99); LIPEMIA HEMOLYSIS FLAG 80 (0-99); MEAN CELL HEMOGLOBIN 30.8 pg (27.9-34.1); MEAN CELL HEMOGLOBIN CONCENTR. 31.6 g/dL (32.4-36.7); MEAN CELL VOLUME 97.3 fL (81.5-99.8); MEAN PLATELET VOLUME 10.7 fL (8.7-11.7); PLATELET CLUMPS FLAG 10 (0-99); PLATELET COUNT 197 10^3/uL (150-400); RED BLOOD CELL COUNT 2.99 10^6/uL (4.18-5.33); RED CELL DISTRIBUTION WIDTH 14.6 % (11.5-15.2)
[2017-08-02 06:31] LABS: ALANINE AMINOTRANSFERASE 42 IU/L (9-52); ALBUMIN 2.2 g/dL (3.5-5.0); ALKALINE PHOSPHATASE 55 IU/L (38-126); ANION GAP 6 mEq/L (8-16); ASPARTATE AMINOTRANSFERASE 88 IU/L (14-46); BILIRUBIN,TOTAL 0.2 mg/dL (0.1-1.4); CALCIUM 7.1 mg/dL (8.5-10.4); CARBON DIOXIDE 23 mEq/l (22-31); CHLORIDE 109 mEq/L (97-110); CREATININE 0.7 mg/dL (0.6-1.0); GLOMERULAR FILTRATION RATE > 60; GLUCOSE 103 mg/dL (70-100); MAGNESIUM 1.9 mg/dL (1.6-2.3); POTASSIUM 4.3 mEq/L (3.5-5.2); SODIUM 138 mEq/L (134-144); TOTAL PROTEIN 4.3 g/dL (6.3-8.2)
--- NOTE | 2017-08-02 08:23 | NEUSURGPN ---
Assessment/Plan: 72 yo female with 7 week old compression fracture at C6, chin on chest deformity. Previous patient of Dr. Yee. Also has bilateral lower extremity cellulitis. - x-rays yesterday show stable compression fracture at C6 and improved alignment from prior imaging -neuro- No weakness in BUE, negative for any myelopathic symptoms. 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 Yee as scheduled in 2-3 weeks. no surgery recommended at this time. Likely too sick to tolerate large corrective surgery for deformity at this time. -Call NS with any changes in exam -Discussed with Dr. Hensley and DR. Yee. Subjective: Patient has soem mild neck pain. No pain, numbness, tingling, weakness in arms. has foot pain as expected from cellulitis, but no weakness in legs, or pain. Objective: NAD, VSS BUE 5/5= Sensation intact to lt touch Negative oconnell's, DTR 2+ biceps BLE- bilateral erythema and edema on bilateral ankles/feet with evidence of ulcerations/dry skin Strength intat BLE- unable to fully test DF/PF due to cellulitis/pain- wiggles toes fine Catheter Insertion Date: 07/31/17 - Physician Discussed Patient with Dr.: Hensley Neurosurgery Physical Exam - Vitals, I&O, Labs I and O 08/01/17 08/02/17 08/03/17 05:59 05:59 05:59 Intake Total 7348.3 3193 Output Total 680 1050 Balance 6668.3 2143 Weight 52 kg 57.8 kg Intake: Oral (ml) 500 600 IV Intake (ml) 2905 2593 IV Infused (ml) 3943.3 DOBUTamine/DEXTROSE 250 22.3 ml @ Titrate IV CONT TANA Rx#:[id number] Norepinephrine Bitartrate 421 4 mg In D5w 500 ml @ Titrate IV CONT TANA Rx#: [id number] Output: Urine (ml) 680 1050 Catheter 600 1050 Other: Number of Stools Bedpan 1 Catheter 1 Microbiology 07/31/17 17:20 - Final Sputum, Expectorated Vital Signs Temp Pulse Resp BP Pulse Ox 36.2 C 94 26 H 87/60 L 96 08/02/17 06:00 08/02/17 07:00 08/02/17 07:00 08/02/17 07:00 08/02/17 07:00 Laboratory Results 08/02/17 05:35 08/02/17 05:35 ICD10 Worksheet Patient Problems: Problems Problem Status Onset Dyspnea Acute Elevated troponin Acute Lower extremity cellulitis Acute Pneumonia Acute Sepsis Acute Neck pain Acute Rib fracture Acute
[2017-08-02] MEDS: MAGNESIUM OXIDE 400 MG TAB PO SCH (08:32)
[2017-08-02] MEDS: GABAPENTIN 100 MG CAP PO SCH ×2 (08:32→21:39)
[2017-08-02] MEDS: [UNRECOGNIZED DRUG - REMARK] TP SCH (08:40)
[2017-08-02] MEDS: FLUOCINOLONE 0.01% TP SCH (08:41)
[2017-08-02] MEDS ORDERED: CALCIUM GLUCONATE 50 ML IV ONE (08:42)
[2017-08-02] MEDS: FLUTICASONE/SALMETER 250/50MCG DISKUS IH SCH ×2 (09:16→21:24)
--- NOTE | 2017-08-02 10:32 | PDINTPN ---
Dolly Driver Progress Note Assessment/Plan: Assessment: Plan: Objective: Vital Signs Temp Pulse Resp BP Pulse Ox 36.2 C 100 21 H 97/59 L 98 08/02/17 06:00 08/02/17 10:00 08/02/17 10:00 08/02/17 10:00 08/02/17 10:00 Microbiology 07/31/17 17:20 - Final Sputum, Expectorated Laboratory Results 08/02/17 05:35 08/02/17 05:35 08/01/17 08/02/17 08/03/17 05:59 05:59 05:59 Intake Total 7348.3 3193 Output Total 680 1050 Balance 6668.3 2143 PT 15.7 SEC (12.0-15.0) H 07/31/17 13:25 INR 1.25 (0.83-1.16) H 07/31/17 13:25 Laboratory Tests 08/02/17 08/02/17 05:35 05:35 Calcium 7.1 L D Ionized Calcium 1.11 L Magnesium 1.9 Total Bilirubin 0.2 AST 88 H ALT 42 Albumin 2.2 L ICD10 Worksheet Patient Problems: Problems Problem Status Onset Rib fracture Acute Lower extremity cellulitis Acute Dyspnea Acute Neck pain Acute Pneumonia Acute Elevated troponin Acute Sepsis Acute
[2017-08-02] MEDS: APIXABAN 5 MG TAB PO SCH ×2 (10:54→21:39)
--- NOTE | 2017-08-02 11:11 | PDINTPN ---
Cloth Worker Progress Note Assessment/Plan: Assessment: Severe sepsis: Resolving. Secondary to cellulitis and group a strep bacteremia from skin source. On ceftriaxone and clindamycin per Infectious Disease. Abnormal mental status: Resolved. Secondary to 1. Cellulitis, foot lesions. Improving. Wound Care following. COPD. Oxygen requirements at baseline. Does have some central pulmonary congestion/chronic without evidence of acute infection. On Advair, albuterol by nebulizer or metered-dose inhaler. Anemia: Probably secondary to volume depletion on admission and subsequent rehydration, chronic anemia. Hematocrit 29. Will follow. History of pulmonary embolism. On Eliquis on admission. Getting none now. Will restart. Also has a mitral valve replacement. History of MVR Swallow dysfunction: Aspiration with thin liquids documented yesterday. May be better now that collar is off. Appears to be having no problems with swallowing. Speech to re-evaluate. Status post recent C6 fracture. Seen by Neurosurgery. Collar removed. Pseudogout: On Arava. Plan: The patient will be kept in the intensive care unit. She can be transferred to step-down unit status. Current antibiotics and medications will be maintained. Eliquis will be restarted. Increase mobilization as tolerated. Began to look at discharge issues: may need SNF. 30 minutes of critical care time spent directly with the patient. Discussed with the patient and her son, nursing, the ICU multi disciplinary team. Subjective: Feels much better since yesterday with collar off. Denies significant shortness of breath. Some cough and congestion. Able to swallow without problems. Objective: Vital Signs Temp Pulse Resp BP Pulse Ox 36.2 C 97 21 H 100/65 98 08/02/17 06:00 08/02/17 11:00 08/02/17 11:00 08/02/17 11:00 08/02/17 11:00 Microbiology 07/31/17 17:20 - Final Sputum, Expectorated Laboratory Results 08/02/17 05:35 08/02/17 05:35 08/01/17 08/02/17 08/03/17 05:59 05:59 05:59 Intake Total 7348.3 3193 Output Total 680 1050 Balance 6668.3 2143 PT 15.7 SEC (12.0-15.0) H 07/31/17 13:25 INR 1.25 (0.83-1.16) H 07/31/17 13:25 Laboratory Tests 08/02/17 08/02/17 05:35 05:35 Calcium 7.1 L D Ionized Calcium 1.11 L Magnesium 1.9 Total Bilirubin 0.2 AST 88 H ALT 42 Albumin 2.2 L Physical Exam - Physical Exam General Appearance: alert, no apparent distress, other ( Up in the chair, eating) EENT: PERRL/EOMI, other ( nasal cannula at 3 L, her home baseline.) Neck: normal inspection ( No BRIAN) Respiratory: lungs clear ( anteriorly), decreased breath sounds ( bilaterally), rhonchi ( present with cough), prolonged expiration, No rales, No wheezing Cardiac/Chest: tachycardia ( sinus), systolic murmur Abdomen: normal bowel sounds, non-tender, soft Skin: normal color, warm/dry Extremities: swelling ( bilaterally in lower extremities. Cellulitis significantly better. Multiple skin cracks, dryness, bleeding of the feet, about the same) Neuro/Psych: no motor/sensory deficits, No cognition abnormalities ICD10 Worksheet Patient Problems: Problems Problem Status Onset Rib fracture Acute Lower extremity cellulitis Acute Dyspnea Acute Neck pain Acute Pneumonia Acute Elevated troponin Acute Sepsis Acute
[2017-08-02] MEDS ORDERED: ALBUTEROL 3 ML DEYVIAL IH PRN (11:15)
[2017-08-02] MEDS ORDERED: NICOTINE POLACRILEX 2 MG GUM B PRN (11:41)
--- NOTE | 2017-08-02 12:39 | PCMIDPN ---
Assessment/Plan: Assessment/Plan: 1. Group A strep bacteremia/sepsis: - source possible cellulitis vs pneumonitis -Currently on Ceftiaxone + Clinda -will order f/u blood cx - given hx of prosthetic valve will order TTe. 2. Bilateral LE cellulitis: - appears very mild today, not warm. -has swelling. - given both legs, favor venous stasis changes - d/c clinda - elevate legs 3. LLL infiltrate: - atelectasis vs pneumoniitis meds ceftraixone 1g daily- Subjective: afebrile. sitting in chair. feeling better. on o2. denies sob. coughing but not bringing up much phlegm. denies diarrhea or abd pain. Objective: Vital Signs Temp Pulse Resp BP Pulse Ox 36.6 C 100 25 H 95/52 L 98 08/02/17 12:00 08/02/17 12:00 08/02/17 12:00 08/02/17 12:00 08/02/17 12:00 Microbiology 07/31/17 17:20 - Final Sputum, Expectorated Laboratory Results 08/02/17 05:35 08/02/17 05:35 08/01/17 08/02/17 08/03/17 05:59 05:59 05:59 Intake Total 7348.3 3193 Output Total 680 1050 Balance 6668.3 2143 - Physical Exam General Appearance: alert, no apparent distress Respiratory: coarse breath sounds Cardiac/Chest: regular rate, rhythm Extremities: swelling Abdomen: normal bowel sounds, non-tender, soft, No distended Skin: erythema (bilateral LE, very mild. not warm. not tender on legs. FEET with very dry skin with cracks that are bleeding. ) ICD10 Worksheet Patient Problems: Problems Problem Status Onset Dyspnea Acute Elevated troponin Acute Lower extremity cellulitis Acute Pneumonia Acute Sepsis Acute Neck pain Acute Rib fracture Acute
[2017-08-02 12:54] LABS: POTASSIUM 4.1 mEq/L (3.5-5.2)
--- NOTE | 2017-08-02 13:41 | ASMTCMCOM ---
CM Note CM Note Notes: I spoke with patient and her son re: discharge planning. They agree that patient needs SNF rehab before going home. Patient was at [facility] earlier this summer and requests to go back. Ludmila at [facility] confirmed receipt of my referral and can accept patient upon discharge. CM to follow. Date Signed: 08/02/2017 01:40 PM Electronically Signed By:Simran Buitrago RN
--- NOTE | 2017-08-02 15:51 | ECHO ---
[email or web address] [address] [address] Main: [phone] Fax: Transthoracic Echocardiogram Name: OLEG DHILLON MR#: [id number] Study Date: 08/02/2017 Study Time: 12:54 PM Date of : 1945 Age: 72 year(s) Height: 154.9 cm (61 in.) Weight: 57.61 kg (127 lb.) BSA: 1.56 m2 Gender: Female Examination: Echo Indication: Group A strep bacteremia/hx mitral valve replacement Image Quality: Good Contrast: Requested by: Lauro Sotelo Heart Rate: Rhythm: BP: 95 mmHg/52 mmHg Procedure Staff Deployment Manager: Maryann Jensen Measurements: Chambers Valvular Assessment AV/MV Valvular Assessment TV/PV Normal Normal Normal Name Value Range Name Value Range Name Value Range Ao Isabelle (MM): 3.3 cm (2.2 cm-3.7 AV meanP mmHg ( - ) TR Vmax: 2.76 mm/s ( - ) cm) LVOT Vmax: 0.91 m/s (0.7 m/s-1.1 TR PGmax: 30 mmHg ( - ) IVSd (2D): 0.9 cm (0.6 cm-1.1 m/s) syst. PAP: 40 mmHg ( - ) cm) MV E Vmax: 1.87 cm/s ( - ) LVDd (2D): 4.1 cm (3.9 cm-5.3 MV A Vmax: 1.45 cm/s ( - ) cm) MV E/A: 1.29 ( - ) LVDs (2D): 2.9 cm (2.1 cm-4 MV PHT: 0.049 ( - ) cm) MVA (PHT): 4.5 ( - ) LVPWd (2D): 0.9 cm ( - ) LVEF (MOD4): 62 % (>=55 %) Continued Measurements: Chambers Valvular Assessment AV/MV Valvular Assessment TV/PV Name Value Name Value Name Value LA Area: 23.0 cm? MV DecTime: 264 CVP (est.): 10 LA Volume: 82 ml MV E' Septal: 0.07 m/s LA Volume Index: 52.6 ml/m? MV E/E' Septal: 25.90 MV E/E' Lateral: 28.60 Findings: Left Ventricle: Normal size left ventricle. No LVOT obstruction. Right Ventricle: Normal size right ventricle. Left Atrium: The left atrium is moderately to severely dilated. Patient: OLEG DHILLON Study Date: 08/02/2017 Page 1 of 2 12:54 PM Right Atrium: The right atrium is moderately dilated. Mitral Valve: Trivial mitral valve regurgitation. A bioprothetic mitral valve is in place. There is no obvious vegetation seen on the prostetic MV. Aortic Valve: The aortic valve is normal in appearance. Tricuspid Valve: Severe tricuspid regurgitation is present. RVSP is borderline elevated. Cannot R/O tricuspid valve vegetation (previous echo in April 2017 showed mild to moderate tricuspid regurgitation). Pulmonic Valve: Pulmonary valve not well visualized. Great Vessels: The aorta is normal. Pericardium: No pericardial effusion. Left side pleural effusion. (No Signature Object) Patient: OLEG DHILLON Study Date: 08/02/2017 Page 2 of 2 12:54 PM [id number]
--- NOTE | 2017-08-02 17:36 | HOSPPROG ---
Hospitalist Progress Note Assessment/Plan: 72 yo F w/ hx of COPD and recent c6 compression fracture presenting with AMS and severe sepsis/septic shock # septic shock: patient meeting criteria for severe sepsis and progressed to septic shock requiring NE for pressure support, weaned off . PICC in place, still with significant leukocytosis, lactate cleared, currently on ctx/clinda # group A strep bacteremia: with source either felt to be cellulitis versus pna as below. Echo without vegetations, ID following # LLL PNA: noted on personal review of serial cxr, high risk for aspiration given c collar in place prior to admission, started on clindamycin/ctx # ? cellulitis: with bilateral erythema not clear if this is truly cellulitis verus venous stasis dermatitis, abx as above # anemia: drop in h/h overnight fairly significant and now lower than her usual baseline, no e/o active bleeding, iron studies most c/w mixed picture and h/h now stable # groin pain: patient notes that this has been present x 1 year and she has been evaluated for it in the past without clear etiology found, as above, UA without blood or e/o infection # hoda: in setting of septic shock, resolved with fluid resucitation # acute encephalopathy: present on admission but resolved overnight, likely toxic metabolic related to sepsis # elevated trop: appreciate cardiology evaluation, likely demand # h/o PE--still on apixaban, holding given new onset anemia # c6 compression fracture: nsg cleared for removal of c collar # IP status, patient critically ill requiring pressor support in ICU Care plan reviewed with Dr. Worrell and multidisciplinary care team on rounds. Subjective: no significant overnight events, patient currently feeling better though still fatigued and weak Objective: Vital Signs Temp Pulse Resp BP Pulse Ox 36.6 C 103 H 18 139/77 H 100 08/02/17 15:46 08/02/17 15:46 08/02/17 15:46 08/02/17 15:46 08/02/17 15:46 Microbiology 07/31/17 17:20 - Final Sputum, Expectorated Laboratory Results 08/02/17 05:35 08/02/17 12:25 08/01/17 08/02/17 08/03/17 05:59 05:59 05:59 Intake Total 7348.3 3193 Output Total 680 1050 Balance 6668.3 2143 PT 15.7 SEC (12.0-15.0) H 07/31/17 13:25 INR 1.25 (0.83-1.16) H 07/31/17 13:25 chronically ill appearing anicteric op clear rrr tachy no mrg cta lll rhonchi soft nt nd no cce warm dry well perfused oriented appropriate ICD10 Worksheet Patient Problems: Problems Problem Status Onset Dyspnea Acute Elevated troponin Acute Lower extremity cellulitis Acute Pneumonia Acute Sepsis Acute Neck pain Acute Rib fracture Acute
[2017-08-02] MEDS: AMITRIPTYLINE HCL 25 MG TAB PO SCH (21:39)
[2017-08-02] MEDS: LEFLUNOMIDE 20 MG TAB PO SCH (21:39)
[2017-08-02] MEDS: BETAMETHASONE AUGMENTED 0.05% 15GM CREAM TP SCH (22:02)
[2017-08-03 04:31] LABS: % IMMATURE GRANULYOCYTES 1.4 % (0.0-1.1); ABSOLUTE IMMATURE GRANULOCYTES 0.16 10^3/uL (0.00-0.10); ADD DIFF? NO; ADD MORPH? NO; ADD SCAN? NO; ATYPICAL LYMPHOCYTE FLAG 30 (0-99); FRAGMENT RBC FLAG 0 (0-99); HEMATOCRIT 29.3 % (38.0-47.0); HEMOGLOBIN 9.5 g/dL (12.6-16.3); LEFT SHIFT FLG 10 (0-99); LIPEMIA HEMOLYSIS FLAG 80 (0-99); MEAN CELL HEMOGLOBIN 31.6 pg (27.9-34.1); MEAN CELL HEMOGLOBIN CONCENTR. 32.4 g/dL (32.4-36.7); MEAN CELL VOLUME 97.3 fL (81.5-99.8); MEAN PLATELET VOLUME 9.8 fL (8.7-11.7); PLATELET CLUMPS FLAG 0 (0-99); PLATELET COUNT 199 10^3/uL (150-400); RED BLOOD CELL COUNT 3.01 10^6/uL (4.18-5.33); RED CELL DISTRIBUTION WIDTH 14.6 % (11.5-15.2)
[2017-08-03 04:32] LABS: IONIZED CALCIUM 1.13 MMOL/L (1.12-1.30)
[2017-08-03] MEDS: oxyCODONE IR 5 MG TAB PO PRN ×4 (04:32→20:40)
[2017-08-03] MEDS: NS 1,000 ML IV SCH ×2 (04:32→13:14)
[2017-08-03 04:50] LABS: ALANINE AMINOTRANSFERASE 38 IU/L (9-52); ALBUMIN 2.1 g/dL (3.5-5.0); ALKALINE PHOSPHATASE 71 IU/L (38-126); ANION GAP 3 mEq/L (8-16); ASPARTATE AMINOTRANSFERASE 64 IU/L (14-46); BILIRUBIN,TOTAL 0.3 mg/dL (0.1-1.4); CARBON DIOXIDE 23 mEq/l (22-31); CHLORIDE 107 mEq/L (97-110); CREATININE 0.6 mg/dL (0.6-1.0); GLOMERULAR FILTRATION RATE > 60; GLUCOSE 94 mg/dL (70-100); MAGNESIUM 1.8 mg/dL (1.6-2.3); POTASSIUM 4.2 mEq/L (3.5-5.2); SODIUM 133 mEq/L (134-144); TOTAL PROTEIN 4.4 g/dL (6.3-8.2)
[2017-08-03] MEDS ORDERED: MAGNESIUM SULF 1 GM/DEXTROSE 100 ML IV ONE (08:26)
[2017-08-03] MEDS: APIXABAN 5 MG TAB PO SCH ×2 (09:18→20:42)
[2017-08-03] MEDS: GABAPENTIN 100 MG CAP PO SCH ×2 (09:18→20:41)
[2017-08-03] MEDS: MAGNESIUM OXIDE 400 MG TAB PO SCH (09:19)
[2017-08-03] MEDS: [UNRECOGNIZED DRUG - REMARK] TP SCH (09:19)
[2017-08-03] MEDS: FLUOCINOLONE 0.01% TP SCH (09:30)
[2017-08-03] MEDS: FLUTICASONE/SALMETER 250/50MCG DISKUS IH SCH ×2 (11:19→21:31)
--- NOTE | 2017-08-03 11:47 | PCMIDPN ---
Assessment/Plan: Assessment: Group a strep bacteremia and sepsis secondary to a lower extremity skin and soft tissue source. Both left and right lower extremities are involved in inflammation and erythema. The feet and regions in between the toes appear to be suffering from a significantly serious fungal dermatitis. This could be the etiologic opening that group a strep needed to become systemic in the blood stream. Will continue with IV ceftriaxone. Will add daily oral fluconazole in attempts to improve the condition of the feet. Plan: 1. Continue IV ceftriaxone. 2. Start oral fluconazole 100 mg p.o. daily. 3. Follow clinical improvement. 4. Follow repeat blood cultures. 08/03/17 17:21 Subjective: Patient is resting comfortably in her hospital bed. Her major complaint is pain in both of her feet. The pain is consistent over the last few days. It does not increase or decrease whether she elevates her legs or allows them to hang dependently. She denies any fevers or chills. Tolerating ceftriaxone without issue. Objective: Ceftriaxone # 2 Vital Signs Temp Pulse Resp BP Pulse Ox 36.4 C 106 H 20 129/74 H 90 L 08/03/17 11:34 08/03/17 11:34 08/03/17 11:34 08/03/17 11:34 08/03/17 11:34 Microbiology 07/31/17 17:20 - Final Sputum, Expectorated Laboratory Results 08/03/17 04:25 08/03/17 04:25 08/02/17 08/03/17 08/04/17 05:59 05:59 05:59 Intake Total 3193 2596 Output Total 1050 900 Balance 2143 1696 - Physical Exam General Appearance: WD/WN, alert, no apparent distress, non-toxic Respiratory: lungs clear, normal breath sounds, No respiratory distress Extremities: non-tender, inflammation, erythema, No normal inspection Skin: normal color, warm/dry, No rash Neuro/Psych: alert, normal mood/affect, oriented x 3 ICD10 Worksheet Patient Problems: Problems Problem Status Onset Dyspnea Acute Elevated troponin Acute Lower extremity cellulitis Acute Pneumonia Acute Sepsis Acute Neck pain Acute Rib fracture Acute
[2017-08-03] MEDS ORDERED: FLUCONAZOLE 40 MG/1 ML 35 ML BOTTLE PO SCH (12:00)
[2017-08-03] MEDS: FLUCONAZOLE 100 MG TAB PO SCH (13:08)
--- NOTE | 2017-08-03 13:16 | HOSPPROG ---
Hospitalist Progress Note Assessment/Plan: 72 yo F w/ hx of COPD and recent c6 compression fracture presenting with AMS and severe sepsis/septic shock # septic shock: patient meeting criteria for severe sepsis and progressed to septic shock requiring NE for pressure support, weaned off . PICC in place, still with significant leukocytosis, lactate cleared, currently on ctx/clinda # group A strep bacteremia: with source either felt to be cellulitis versus pna as below. Echo without vegetations, ID following # LLL PNA: noted on personal review of serial cxr, high risk for aspiration given c collar in place prior to admission, started on clindamycin/ctx # cellulitis: with bilateral erythema not clear if this is truly cellulitis verus venous stasis dermatitis, abx as above, today legs do appears more red and warm, with skin breakdown on the foot, wound care following # anemia: drop in h/h overnight fairly significant and now lower than her usual baseline, no e/o active bleeding, iron studies most c/w mixed picture and h/h now stable # groin pain: patient notes that this has been present x 1 year and she has been evaluated for it in the past without clear etiology found, as above, UA without blood or e/o infection # hoda: in setting of septic shock, resolved with fluid resucitation # acute encephalopathy: present on admission but resolved overnight, likely toxic metabolic related to sepsis # elevated trop: appreciate cardiology evaluation, likely demand # h/o PE--resumed on apixaban without further drop in h/h # c6 compression fracture: nsg cleared for removal of c collar # IP status, will likely require another several days in house Subjective: no acute overnight events, patient notes that she is feeling a bit better today but her legs still hurt and she still feels worn down Objective: Vital Signs Temp Pulse Resp BP Pulse Ox 36.4 C 106 H 20 129/74 H 90 L 08/03/17 11:34 08/03/17 11:34 08/03/17 11:34 08/03/17 11:34 08/03/17 11:34 Microbiology 07/31/17 17:20 - Final Sputum, Expectorated Laboratory Results 08/03/17 04:25 08/03/17 04:25 08/02/17 08/03/17 08/04/17 05:59 05:59 05:59 Intake Total 3193 2596 480 Output Total 1050 900 Balance 2143 1696 480 PT 15.7 SEC (12.0-15.0) H 07/31/17 13:25 INR 1.25 (0.83-1.16) H 07/31/17 13:25 chronically ill appearing anicteric op clear rrr tachy no mrg cta lll rhonchi soft nt nd no cce warm dry well perfused oriented appropriate ICD10 Worksheet Patient Problems: Problems Problem Status Onset Dyspnea Acute Elevated troponin Acute Lower extremity cellulitis Acute Pneumonia Acute Sepsis Acute Neck pain Acute Rib fracture Acute
[2017-08-03] MEDS: AMITRIPTYLINE HCL 25 MG TAB PO SCH (20:40)
[2017-08-03] MEDS: LEFLUNOMIDE 20 MG TAB PO SCH (20:41)
[2017-08-03] MEDS: BETAMETHASONE AUGMENTED 0.05% 15GM CREAM TP SCH (20:42)
[2017-08-03] MEDS: ACETAMINOPHEN 325 MG TAB PO PRN (20:47)
[2017-08-04] MEDS: oxyCODONE IR 5 MG TAB PO PRN ×5 (04:29→21:57)
[2017-08-04 04:40] LABS: IONIZED CALCIUM 1.14 MMOL/L (1.12-1.30)
[2017-08-04 04:44] LABS: % IMMATURE GRANULYOCYTES 1.2 % (0.0-1.1); ABSOLUTE IMMATURE GRANULOCYTES 0.11 10^3/uL (0.00-0.10); ADD DIFF? NO; ADD MORPH? NO; ADD SCAN? NO; ATYPICAL LYMPHOCYTE FLAG 40 (0-99); FRAGMENT RBC FLAG 20 (0-99); HEMOGLOBIN 9.6 g/dL (12.6-16.3); LEFT SHIFT FLG 10 (0-99); LIPEMIA HEMOLYSIS FLAG 80 (0-99); MEAN CELL HEMOGLOBIN 31.4 pg (27.9-34.1); MEAN PLATELET VOLUME 10.1 fL (8.7-11.7); PLATELET CLUMPS FLAG 10 (0-99); PLATELET COUNT 235 10^3/uL (150-400); RED BLOOD CELL COUNT 3.06 10^6/uL (4.18-5.33); RED CELL DISTRIBUTION WIDTH 14.6 % (11.5-15.2)
[2017-08-04 05:08] LABS: ANION GAP 6 mEq/L (8-16); CALCIUM 7.7 mg/dL (8.5-10.4); CARBON DIOXIDE 24 mEq/l (22-31); CHLORIDE 106 mEq/L (97-110); CREATININE 0.5 mg/dL (0.6-1.0); GLOMERULAR FILTRATION RATE > 60; GLUCOSE 91 mg/dL (70-100); MAGNESIUM 1.7 mg/dL (1.6-2.3); SODIUM 136 mEq/L (134-144)
[2017-08-04] MEDS ORDERED: MAGNESIUM SULF 1 GM/DEXTROSE 100 ML IV ONE (08:52)
[2017-08-04] MEDS: MAGNESIUM OXIDE 400 MG TAB PO SCH (10:00)
[2017-08-04] MEDS: GABAPENTIN 100 MG CAP PO SCH ×2 (10:00→21:57)
[2017-08-04] MEDS: FLUCONAZOLE 100 MG TAB PO SCH (10:00)
[2017-08-04] MEDS: APIXABAN 5 MG TAB PO SCH ×2 (10:00→21:57)
[2017-08-04] MEDS: [UNRECOGNIZED DRUG - REMARK] TP SCH (11:07)
[2017-08-04] MEDS: FLUOCINOLONE 0.01% TP SCH (11:07)
[2017-08-04] MEDS: FLUTICASONE/SALMETER 250/50MCG DISKUS IH SCH ×2 (11:11→21:05)
--- NOTE | 2017-08-04 11:16 | WOCRNPDOC ---
[facility] Advanced Assessment Note - Skin Integrity Problem, Advanced Assess Left Hip Pressure Injury Dressing Type: Allevyn Life Dressing Description: Clean/Dry, Intact Exudate Amount: None Integumentary Issue Intervention: Visualized Under Dressing, Hydrogel Applied Wound Bed Color: Sarah Ann, Purple, Red Wound Bed Constitution: Smooth Tissue, Scab Wound Edges: Attached Site Odor: None Site Measurement - Head-to-Toe Length X Width X Depth (cm): 14.7x5x0.1 Pressure Injury Stage: Deep Tissue Injury (DTI) Pressure Injury Present on Admit: Yes Skin Integrity Problem Comment: Evolving deep tissue injury with several partial thickness openings. Blisters have de roofed and none remain. The area is mottled and there are at least 6 distinct areas of pressure. Keep offloading area and maintain supportive care. Wound care will round late next week. Bilateral Foot Dressing Type: Open to Air Exudate Amount: Minimal Exudate Characteristic(s): Serosanguinous Kisha Wound Tissue: Erythema, Shiny, Calloused (heels), Painful/Tender Wound Edges: Epithelizing, Attached Extremity Temperature: Cool (feet cool but LE warm.) Peripheral Edema Location & Description: 2+ BLE Skin Integrity Problem Comment: Multiple scattered oozing small partial thickness openings along dorsum of bilateral feet. Feet are much more hydrated than previous assessment and fissures on heel seem somewhat smaller. Right foot in particular had enough openings that it warrents application of a dressing to manage drainage and to prevent further breakdown.
--- NOTE | 2017-08-04 17:20 | HOSPPROG ---
Hospitalist Progress Note Assessment/Plan: 72 yo F w/ hx of COPD and recent c6 compression fracture presenting with AMS and severe sepsis/septic shock # septic shock: patient meeting criteria for severe sepsis and progressed to septic shock requiring NE for pressure support, weaned off . PICC in place, leukocytosis normalized, lactate cleared, abx as below # strep pyogenes bacteremia: with source either felt to be cellulitis versus pna as below. Echo without vegetations, ID following, continued on ctx # LLL PNA: noted on personal review of serial cxr, high risk for aspiration given c collar in place prior to admission, now on ctx as above # cellulitis: with bilateral erythema and underlying venous stasis, ID feels this is the likely culprit with source of entry being fungal dermatitis as next # fungal dermatitis: started on fluconazole as above # anemia: iron studies most c/w mixed picture of anemia of chronic disease/ possibly some iron deficiency contributing -- recommend op colonoscopy # groin pain: chronic, appears normal on exam, improved # hoda: in setting of septic shock, resolved with fluid resucitation # acute encephalopathy: present on admission but resolved overnight, likely toxic metabolic related to sepsis # elevated trop: appreciate cardiology evaluation, likely demand # h/o PE--resumed on apixaban without further drop in h/h # c6 compression fracture: nsg cleared for removal of c collar # IP status, will likely require another several days in house Subjective: no significant overnight events, patient notes she is feeling fatigued but slightly better Objective: Vital Signs Temp Pulse Resp BP Pulse Ox 36.4 C 118 H 10 L 161/94 H 82 L 08/04/17 16:00 08/04/17 16:00 08/04/17 16:00 08/04/17 16:00 08/04/17 16:00 Microbiology 07/31/17 17:20 - Final Sputum, Expectorated Sputum Culture - Final 07/31/17 Unknown Urine Culture - Final Urine,Catheterized Two [place] Types Laboratory Results 08/04/17 04:25 08/04/17 04:25 08/03/17 08/04/17 08/05/17 05:59 05:59 05:59 Intake Total 2596 1880 155 Output Total 900 950 950 Balance 1696 930 -795 PT 15.7 SEC (12.0-15.0) H 07/31/17 13:25 INR 1.25 (0.83-1.16) H 07/31/17 13:25 chronically ill appearing anicteric op clear rrr tachy no mrg cta lll rhonchi soft nt nd no cce warm dry well perfused oriented appropriate ICD10 Worksheet Patient Problems: Problems Problem Status Onset Dyspnea Acute Elevated troponin Acute Lower extremity cellulitis Acute Pneumonia Acute Sepsis Acute Neck pain Acute Rib fracture Acute
[2017-08-04 18:15] LABS: POTASSIUM 4.1 mEq/L (3.5-5.2)
--- NOTE | 2017-08-04 18:31 | PCMIDPN ---
Assessment/Plan: Assessment/Plan: * Group A strep bacteremia/sepsis due to bilateral lower extremity cellulitis: Repeat blood culture show clearing of bacteremia. Persistent cellulitis over both lower extremities. Continues with significant skin irritation of both feet with these being likely portal of entry for bacteremia. Will continue ceftriaxone. Also on fluconazole orally for possibility of fungal etiology for irritative dermatitis of feet. 08/04/17 18:28 Subjective: Patient complains of bilateral foot pain. Objective: Vital Signs Temp Pulse Resp BP Pulse Ox 36.4 C 118 H 10 L 161/94 H 82 L 08/04/17 16:00 08/04/17 16:00 08/04/17 16:00 08/04/17 16:00 08/04/17 16:00 Microbiology 07/31/17 17:20 - Final Sputum, Expectorated Sputum Culture - Final 07/31/17 Unknown Urine Culture - Final Urine,Catheterized Two [place] Types Laboratory Results 08/04/17 04:25 08/04/17 17:50 08/03/17 08/04/17 08/05/17 05:59 05:59 05:59 Intake Total 2596 1880 455 Output Total 900 950 950 Balance 1696 930 -036 Ceftriaxone # 3 Blood cultures 08/02/2017 no growth - Physical Exam General Appearance: alert, no apparent distress EENT: No conjunctival petechiae Extremities: inflammation (Bilateral lower extremity erythema with warmth and tenderness) Abdomen: non-tender, No distended Skin: other (Multiple scabs and excoriations over both feet) ICD10 Worksheet Patient Problems: Problems Problem Status Onset Dyspnea Acute Elevated troponin Acute Lower extremity cellulitis Acute Pneumonia Acute Sepsis Acute Neck pain Acute Rib fracture Acute
[2017-08-04] MEDS: AMITRIPTYLINE HCL 25 MG TAB PO SCH (21:57)
[2017-08-04] MEDS: LEFLUNOMIDE 20 MG TAB PO SCH (21:57)
[2017-08-04] MEDS: ACETAMINOPHEN 325 MG TAB PO PRN (21:58)
[2017-08-04] MEDS: NS 1,000 ML IV SCH (21:58)
[2017-08-04] MEDS: BETAMETHASONE AUGMENTED 0.05% 15GM CREAM TP SCH (21:59)
[2017-08-05 05:33] LABS: IONIZED CALCIUM 1.18 MMOL/L (1.12-1.30)
[2017-08-05 05:48] LABS: MAGNESIUM 1.7 mg/dL (1.6-2.3); POTASSIUM 3.7 mEq/L (3.5-5.2)
[2017-08-05] MEDS: oxyCODONE IR 5 MG TAB PO PRN ×3 (09:12→19:37)
[2017-08-05] MEDS: GABAPENTIN 100 MG CAP PO SCH ×2 (09:16→20:36)
[2017-08-05] MEDS: MAGNESIUM OXIDE 400 MG TAB PO SCH (09:16)
[2017-08-05] MEDS: FLUOCINOLONE 0.01% TP SCH (09:16)
[2017-08-05] MEDS: [UNRECOGNIZED DRUG - REMARK] TP SCH (09:16)
[2017-08-05] MEDS: APIXABAN 5 MG TAB PO SCH ×2 (09:16→20:36)
[2017-08-05] MEDS: FLUCONAZOLE 100 MG TAB PO SCH (09:16)
[2017-08-05] MEDS: FLUTICASONE/SALMETER 250/50MCG DISKUS IH SCH ×2 (09:38→20:45)
[2017-08-05] MEDS ORDERED: MAGNESIUM SULF 1 GM/DEXTROSE 100 ML IV ONE (09:42)
--- NOTE | 2017-08-05 10:59 | PCMIDPN ---
Assessment/Plan: Assessment: Group a strep bacteremia and sepsis secondary to a lower extremity skin and soft tissue source. Both left and right lower extremities are involved in inflammation and erythema. The feet and regions in between the toes appear to be suffering from a significantly serious fungal dermatitis. The feet appear to be somewhat improved today compared to 2 days ago. Plan would be to continue the IV ceftriaxone as well as fluconazole. Plan: 1. Continue IV ceftriaxone. 2. Start oral fluconazole 100 mg p.o. daily. 3. Follow clinical improvement. 4. Follow repeat blood cultures. 08/03/17 17:21 08/05/17 14:25 Subjective: Patient is resting in her chair in her hospital room. Her feet are elevated. She states that her feet are fractionating still operator. They are getting daily dressing changes. No fevers or chills. Objective: Ceftriaxone # 4 Fluconazole # 3 Vital Signs Temp Pulse Resp BP Pulse Ox 36.6 C 107 H 16 150/89 H 96 08/05/17 10:49 08/05/17 10:49 08/05/17 10:49 08/05/17 10:49 08/05/17 10:49 Laboratory Results 08/04/17 04:25 08/05/17 05:30 08/04/17 08/05/17 08/06/17 05:59 05:59 05:59 Intake Total 1880 5 Output Total 950 1950 Balance 930 105 - Physical Exam General Appearance: WD/WN, alert, no apparent distress, non-toxic Respiratory: lungs clear, normal breath sounds, No respiratory distress Cardiac/Chest: regular rate, rhythm, No tachycardia Extremities: inflammation, erythema, No non-tender, No normal inspection, No necrosis Skin: normal color, warm/dry, rash (Bilateral feet and ankles with erythema.) Neuro/Psych: alert, normal mood/affect, oriented x 3 ICD10 Worksheet Patient Problems: Problems Problem Status Onset Dyspnea Acute Elevated troponin Acute Lower extremity cellulitis Acute Pneumonia Acute Sepsis Acute Neck pain Acute Rib fracture Acute
[2017-08-05] MEDS: CARVEDILOL 6.25 MG TAB PO SCH ×2 (14:28→17:40)
--- NOTE | 2017-08-05 19:00 | HOSPPROG ---
Hospitalist Progress Note Assessment/Plan: Assessment: 72 yo F w/ hx of COPD and recent c6 compression fracture presenting with acute encephalopathy and severe sepsis/septic shock Plan: # septic shock: poa, patient meeting criteria for severe sepsis and progressed to septic shock requiring NE for pressure support, weaned off, PICC in place, leukocytosis normalized, lactate cleared, abx as below # strep pyogenes bacteremia: with source either felt to be cellulitis, Echo without vegetations, ID following, continued on ctx -08/02 NGTD, start day # LLL PNA: poa, noted on serial cxr, high risk for aspiration given c collar in place prior to admission, now on ctx as above # cellulitis: with bilateral erythema and underlying venous stasis, ID feels this is the likely culprit with source of entry being fungal dermatitis as next # fungal dermatitis: started on fluconazole as above # anemia: iron studies most c/w mixed picture of anemia of chronic disease/ possibly some iron deficiency contributing -recommend op colonoscopy # jason: in setting of septic shock, resolved with fluid resuscitation # acute encephalopathy: present on admission but resolved overnight, likely toxic in setting of infxn and metabolic in setting of JASON # elevated trop: appreciate cardiology evaluation, likely demand -reintroducing bblocker today # h/o PE--resumed on apixaban without further drop in h/h # c6 compression fracture: nsg cleared for removal of c collar -increased oxy IR today, gauge effect diet. regular, VFSS today code. full ppx. high risk, on eliquis dispo. ADD 08/06 vs. 08/07, pending placement and resolution of above Subjective: reports legs feeling better Objective: Vital Signs Temp Pulse Resp BP Pulse Ox 36.7 C 100 16 140/77 H 93 08/05/17 15:35 08/05/17 17:40 08/05/17 15:35 08/05/17 17:40 08/05/17 15:35 Laboratory Results 08/04/17 04:25 08/05/17 05:30 08/04/17 08/05/17 08/06/17 05:59 05:59 05:59 Intake Total 1880 2055 692 Output Total 950 1950 1250 Balance 930 105 -558 PT 15.7 SEC (12.0-15.0) H 09/17/17 13:25 INR 1.25 (0.83-1.16) H 07/31/17 13:25 - Physical Exam Constitutional: no apparent distress, not in pain, chronically ill appearing, No uncomfortable Cardiovascular: systolic murmur (I/ at sternum), edema (trace bilat LE), No irregularly irregular, No tachycardia Respiratory: reduced air movement (bilat bases), No expiratory wheeze, No inspiratory crackles, No bronchial breath sounds, No respiratory distress Gastrointestinal: normoactive bowel sounds, soft, non-tender abdomen, no palpable masses, No distension Neurologic: AAOx3, weakness (3/5 motor bilat LE), No facial droop Psychiatric: interacting appropriately, not anxious, not encephalopathic, thought process linear ICD10 Worksheet Patient Problems: Problems Problem Status Onset Rib fracture Acute Lower extremity cellulitis Acute Dyspnea Acute Neck pain Acute Pneumonia Acute Elevated troponin Acute Sepsis Acute
[2017-08-05] MEDS: LEFLUNOMIDE 20 MG TAB PO SCH (20:36)
[2017-08-05] MEDS: AMITRIPTYLINE HCL 25 MG TAB PO SCH (20:36)
[2017-08-05] MEDS: BETAMETHASONE AUGMENTED 0.05% 15GM CREAM TP SCH (20:47)
[2017-08-05] MEDS: ZOLPIDEM TARTRATE 5 MG TAB PO PRN (22:37)
[2017-08-06 05:39] LABS: % IMMATURE GRANULYOCYTES 0.8 % (0.0-1.1); ABSOLUTE IMMATURE GRANULOCYTES 0.08 10^3/uL (0.00-0.10); ADD DIFF? NO; ADD MORPH? NO; ADD SCAN? NO; ATYPICAL LYMPHOCYTE FLAG 30 (0-99); FRAGMENT RBC FLAG 0 (0-99); HEMATOCRIT 28.6 % (38.0-47.0); HEMOGLOBIN 9.2 g/dL (12.6-16.3); LEFT SHIFT FLG 0 (0-99); LIPEMIA HEMOLYSIS FLAG 80 (0-99); MEAN CELL HEMOGLOBIN 31.2 pg (27.9-34.1); MEAN CELL HEMOGLOBIN CONCENTR. 32.2 g/dL (32.4-36.7); MEAN CELL VOLUME 96.9 fL (81.5-99.8); MEAN PLATELET VOLUME 9.6 fL (8.7-11.7); PLATELET CLUMPS FLAG 0 (0-99); PLATELET COUNT 258 10^3/uL (150-400); RED BLOOD CELL COUNT 2.95 10^6/uL (4.18-5.33); RED CELL DISTRIBUTION WIDTH 14.2 % (11.5-15.2)
[2017-08-06 06:10] LABS: ANION GAP 5 mEq/L (8-16); CALCIUM 8.1 mg/dL (8.5-10.4); CARBON DIOXIDE 30 mEq/l (22-31); CHLORIDE 100 mEq/L (97-110); CREATININE 0.5 mg/dL (0.6-1.0); GLOMERULAR FILTRATION RATE > 60; GLUCOSE 97 mg/dL (70-100); SODIUM 135 mEq/L (134-144)
[2017-08-06] MEDS: oxyCODONE IR 5 MG TAB PO PRN ×4 (06:57→21:58)
[2017-08-06] MEDS: GABAPENTIN 100 MG CAP PO SCH ×2 (08:33→21:57)
[2017-08-06] MEDS: FUROSEMIDE 40 MG TAB PO SCH (08:34)
[2017-08-06] MEDS: CARVEDILOL 6.25 MG TAB PO SCH ×2 (08:34→18:18)
[2017-08-06] MEDS: FLUCONAZOLE 100 MG TAB PO SCH (08:34)
[2017-08-06] MEDS: APIXABAN 5 MG TAB PO SCH ×2 (08:35→21:59)
[2017-08-06] MEDS: MAGNESIUM OXIDE 400 MG TAB PO SCH (08:35)
[2017-08-06] MEDS ORDERED: CARVEDILOL 6.25 MG TAB PO SCH (08:39)
[2017-08-06] MEDS: FLUTICASONE/SALMETER 250/50MCG DISKUS IH SCH ×2 (08:39→20:19)
[2017-08-06] MEDS: [UNRECOGNIZED DRUG - REMARK] TP SCH (08:49)
[2017-08-06] MEDS: FLUOCINOLONE 0.01% TP SCH (08:50)
[2017-08-06] MEDS ORDERED: CARVEDILOL 6.25 MG TAB PO ONE (09:00)
[2017-08-06] MEDS ORDERED: LACTULOSE 20 GM/30 ML UDCUP PO PRN (13:52)
[2017-08-06] MEDS ORDERED: BISACODYL 10 MG SUPP PR PRN (13:52)
[2017-08-06] MEDS ORDERED: POLYETHYLENE GLYCOL 3350 17 GM PKT PO PRN (13:52)
[2017-08-06] MEDS ORDERED: MAGNESIUM HYDROXIDE 30 ML UDCUP PO PRN (13:52)
--- NOTE | 2017-08-06 13:56 | HOSPPROG ---
Hospitalist Progress Note Assessment/Plan: Assessment: 72 yo F w/ hx of COPD and recent c6 compression fracture presenting with acute encephalopathy and septic shock in setting of strep pyo bacteremia Plan: # septic shock: poa, patient meeting criteria for severe sepsis and progressed to septic shock requiring NE for pressure support, weaned off, PICC in place, leukocytosis normalized, lactate cleared, abx as below # strep pyogenes bacteremia: with source either felt to be cellulitis, Echo without vegetations, ID following -08/02 NGTD -cont on CTX # LLL PNA: poa, noted on serial cxr, high risk for aspiration given c collar in place prior to admission, now on ctx as above -VFSS with mild-mod dysphagia and no e/o aspiration # cellulitis: with bilateral erythema and underlying venous stasis, ID feels this is the likely culprit with source of entry being fungal dermatitis as next -patient with chronic wounds and poor healing, decompensated s/p son moving out of her house 1 week prior to presentation -counseled patient that she will definitely require SNF w/ rehab/wound care -family expressed concerns that patient's goals may be more in line w/ palliative approaches, and we will either arrange one here as INPT or have a consult placed at SNF, as patient seems like she may be more amenable to a [facility] situation # fungal dermatitis: cont on fluconazole # anemia: iron studies most c/w mixed picture of anemia of chronic disease/ possibly some iron deficiency contributing -recommend op colonoscopy # jason: in setting of septic shock, resolved with fluid resuscitation # acute encephalopathy: present on admission but resolved overnight, likely toxic in setting of infxn and metabolic in setting of JASON # elevated trop: appreciate cardiology evaluation, likely demand -reintroduced bblocker w/ good effect, uptitrated to 12.5mg bid # h/o PE: resumed on apixaban without further drop in h/h # c6 compression fracture: nsg cleared for removal of c collar -increased oxy IR today, gauge effect diet. regular, VFSS today code. full ppx. high risk, on eliquis dispo. ADD 08/06 vs. 08/07, pending placement and resolution of above Subjective: ongoing neck discomfort, not moving bowels today, counseled extensively about goals of care and helping patient determine what is best for her Objective: Vital Signs Temp Pulse Resp BP Pulse Ox 36.7 C 90 17 116/67 91 L 08/06/17 12:00 08/06/17 12:00 08/06/17 12:00 08/06/17 12:00 08/06/17 12:00 Laboratory Results 08/06/17 05:30 08/06/17 05:30 08/05/17 08/06/17 08/07/17 05:59 05:59 05:59 Intake Total 2055 992 580 Output Total 1950 1250 1150 Balance 105 -258 -570 PT 15.7 SEC (12.0-15.0) H 07/31/17 13:25 INR 1.25 (0.83-1.16) H 07/31/17 13:25 - Time Spent With Patient Time Spent with Patient: greater than 35 minutes Time Spent with Patient: Greater than 35 minutes spent on this patients care, greater than 50% of time spent counseling, educating, and coordinating care regarding the above mentioned plan. - Physical Exam Constitutional: no apparent distress, chronically ill appearing, uncomfortable, cachectic Cardiovascular: systolic murmur (II/ at sternum), edema (trace bilat LE), No irregularly irregular, No tachycardia Respiratory: no respiratory distress, no rales or rhonchi, clear to auscultation Gastrointestinal: normoactive bowel sounds, soft, non-tender abdomen, no palpable masses Skin: other (fissuring and breakdown bilat plantar surfaces w/ mild blanchable erythema around ankle LLE) Neurologic: AAOx3, sensation intact bilaterally Psychiatric: not anxious, thought process linear, flat affect, No agitated ICD10 Worksheet Patient Problems: Problems Problem Status Onset Rib fracture Acute Lower extremity cellulitis Acute Dyspnea Acute Neck pain Acute Pneumonia Acute Elevated troponin Acute Sepsis Acute
--- NOTE | 2017-08-06 15:08 | ASMTCMCOM ---
CM Note CM Note Notes: 08/06/2017 Case Management Note: Faxed updates to [facility]. Ready to accept pt when medically stable. Case Management to arrange transport at d/c: anticipate wheelchair with O2. Outpatient palliative to start at [facility]. Case Management to follow. 08/02 2017 CM Note I spoke with patient and her son re: discharge planning. They agree that patient needs SNF rehab before going home. Patient was at [facility] earlier this summer and requests to go back. Ludmila at [facility] confirmed receipt of my referral and can accept patient upon discharge. CM to follow. Date Signed: 08/06/2017 03:07 PM Electronically Signed By:Viktoria Trujillo RN
--- NOTE | 2017-08-06 17:14 | PCMIDPN ---
Assessment/Plan: Assessment: Group a strep bacteremia and sepsis secondary to a lower extremity skin and soft tissue source. Although both feet and lower legs are involved in and erythematous dermatitis probably secondary to fungal infection they appear to be improving. Plan would be to continue the IV ceftriaxone as well as fluconazole. Plan: 1. Continue IV ceftriaxone. 2. Start oral fluconazole 100 mg p.o. daily. 3. Follow clinical improvement. 4. Follow repeat blood cultures. Subjective: Patient is resting in her chair in her hospital room. She notes no new complaint. She does note that her feet are less tender and swollen than they used to be. She denies any fevers or chills. Objective: Ceftriaxone # 5 Fluconazole # 4 Vital Signs Temp Pulse Resp BP Pulse Ox 36.7 C 90 17 116/67 91 L 08/06/17 12:00 08/06/17 12:00 08/06/17 12:00 08/06/17 12:00 08/06/17 12:00 Laboratory Results 08/06/17 05:30 08/06/17 05:30 08/05/17 08/06/17 08/07/17 05:59 05:59 05:59 Intake Total 2055 992 580 Output Total 1950 1250 1150 Balance 769 -073 -731 - Physical Exam General Appearance: WD/WN, alert, no apparent distress, non-toxic Respiratory: lungs clear, normal breath sounds, No respiratory distress Cardiac/Chest: regular rate, rhythm, No tachycardia Extremities: inflammation, swelling, erythema, No non-tender, No normal inspection (Bilateral foot and lower extremity erythema which is mildly improved.), No necrosis Skin: normal color, warm/dry, No rash Neuro/Psych: alert, normal mood/affect, oriented x 3 ICD10 Worksheet Patient Problems: Problems Problem Status Onset Dyspnea Acute Elevated troponin Acute Lower extremity cellulitis Acute Pneumonia Acute Sepsis Acute Neck pain Acute Rib fracture Acute
[2017-08-06] MEDS: AMITRIPTYLINE HCL 25 MG TAB PO SCH (21:57)
[2017-08-06] MEDS: LEFLUNOMIDE 20 MG TAB PO SCH (21:59)
[2017-08-06] MEDS: ZOLPIDEM TARTRATE 5 MG TAB PO PRN (21:59)
[2017-08-06] MEDS: SENNOSIDES/DOCUSATE SODIUM TAB PO SCH (21:59)
[2017-08-06] MEDS: BETAMETHASONE AUGMENTED 0.05% 15GM CREAM TP SCH (22:17)
[2017-08-07] MEDS: [UNRECOGNIZED DRUG - REMARK] TP SCH (07:13)
[2017-08-07] MEDS: FLUOCINOLONE 0.01% TP SCH (07:14)
[2017-08-07] MEDS: FLUTICASONE/SALMETER 250/50MCG DISKUS IH SCH ×2 (09:06→19:47)
[2017-08-07] MEDS: CARVEDILOL 6.25 MG TAB PO SCH ×2 (09:48→18:27)
[2017-08-07] MEDS: GABAPENTIN 100 MG CAP PO SCH ×2 (09:48→20:43)
[2017-08-07] MEDS: MAGNESIUM OXIDE 400 MG TAB PO SCH (09:50)
[2017-08-07] MEDS: APIXABAN 5 MG TAB PO SCH ×2 (09:50→20:43)
[2017-08-07] MEDS: FLUCONAZOLE 100 MG TAB PO SCH (09:50)
[2017-08-07] MEDS: FUROSEMIDE 40 MG TAB PO SCH (09:50)
[2017-08-07] MEDS: oxyCODONE IR 5 MG TAB PO PRN ×3 (09:57→20:44)
[2017-08-07] MEDS: SENNOSIDES/DOCUSATE SODIUM TAB PO SCH ×2 (10:09→20:42)
[2017-08-07 10:15] LABS: % IMMATURE GRANULYOCYTES 0.7 % (0.0-1.1); ABSOLUTE IMMATURE GRANULOCYTES 0.08 10^3/uL (0.00-0.10); ADD DIFF? NO; ADD MORPH? NO; ADD SCAN? NO; ATYPICAL LYMPHOCYTE FLAG 10 (0-99); FRAGMENT RBC FLAG 0 (0-99); HEMATOCRIT 30.2 % (38.0-47.0); HEMOGLOBIN 9.6 g/dL (12.6-16.3); LEFT SHIFT FLG 0 (0-99); LIPEMIA HEMOLYSIS FLAG 80 (0-99); MEAN CELL HEMOGLOBIN 30.6 pg (27.9-34.1); MEAN CELL HEMOGLOBIN CONCENTR. 31.8 g/dL (32.4-36.7); MEAN CELL VOLUME 96.2 fL (81.5-99.8); MEAN PLATELET VOLUME 9.4 fL (8.7-11.7); PLATELET CLUMPS FLAG 10 (0-99); PLATELET COUNT 324 10^3/uL (150-400); RED BLOOD CELL COUNT 3.14 10^6/uL (4.18-5.33)
[2017-08-07 11:00] LABS: ANION GAP 5 mEq/L (8-16); CALCIUM 8.1 mg/dL (8.5-10.4); CARBON DIOXIDE 36 mEq/l (22-31); CHLORIDE 92 mEq/L (97-110); CREATININE 0.5 mg/dL (0.6-1.0); GLOMERULAR FILTRATION RATE > 60; GLUCOSE 105 mg/dL (70-100); POTASSIUM 3.8 mEq/L (3.5-5.2); SODIUM 133 mEq/L (134-144)
--- NOTE | 2017-08-07 16:26 | HOSPPROG ---
Hospitalist Progress Note Assessment/Plan: Assessment: 72 yo F w/ hx of COPD and recent c6 compression fracture presenting with acute encephalopathy and septic shock in setting of strep pyo bacteremia Plan: # septic shock: poa, patient meeting criteria for severe sepsis and progressed to septic shock requiring NE for pressure support, weaned off, PICC in place, leukocytosis normalized, lactate cleared, abx as below # strep pyogenes bacteremia: with source either felt to be cellulitis, Echo without vegetations -08/02 NGTD -cont on CTX, D#04/27 # LLL PNA: poa, noted on serial cxr, high risk for aspiration given c collar in place prior to admission, now on ctx as above -VFSS with mild-mod dysphagia and no e/o aspiration # cellulitis: with bilateral erythema and underlying venous stasis, ID feels this is the likely culprit with source of entry being fungal dermatitis as next -pain mgmt on bilat feet [place], able to ambulate w/ assist -counseled patient that she will definitely require SNF w/ rehab/wound care -counseled patient that she will have palliative consult tomorrow to help establish goals of care (DNH?) prior to DC so that she can be supported in any of these decisions at SNF # fungal dermatitis: d/w Dr. Francisco, he recs continue fluconazole, likely the precipitating cause of the feet fissuring # anemia: iron studies most c/w mixed picture of anemia of chronic disease/ possibly some iron deficiency contributing -recommend op colonoscopy # jason: in setting of septic shock, resolved with fluid resuscitation # acute encephalopathy: present on admission but resolved, likely toxic in setting of infxn and metabolic in setting of JASON # elevated trop: appreciate cardiology evaluation, likely demand -reintroduced bblocker w/ good effect, uptitrated to 12.5mg bid # h/o PE: resumed on apixaban without further drop in h/h # c6 compression fracture: nsg cleared for removal of c collar -has dose range of oxy IR + tylenol, not particularly effective, used PRN IV morphine today -recommend heat blankets and non-narcotic methods, as further increases in her opiate will likely precipitate encephalopathy/falls as outpt diet. regular code. full ppx. high risk, on eliquis dispo. ADD 08/08, pending placement and resolution of above, s/p palliative conference to establish goals Subjective: counseled patient/family extensively regarding pain control, need for palliative consult, need to arrange outpt level of care beyond the SNF/rehab , they are working on this in [facility] Objective: Vital Signs Temp Pulse Resp BP Pulse Ox 36.9 C 105 H 15 121/64 H 91 L 08/07/17 15:33 08/07/17 15:33 08/07/17 15:33 08/07/17 15:33 08/07/17 15:33 Laboratory Results 08/07/17 10:05 08/07/17 10:05 08/06/17 08/07/17 08/08/17 05:59 05:59 05:59 Intake Total 992 880 610 Output Total 1250 3650 625 Balance -258 -2770 -15 PT 15.7 SEC (12.0-15.0) H 07/31/17 13:25 INR 1.25 (0.83-1.16) H 07/31/17 13:25 - Time Spent With Patient Time Spent with Patient: greater than 35 minutes Time Spent with Patient: Greater than 35 minutes spent on this patients care, greater than 50% of time spent counseling, educating, and coordinating care regarding the above mentioned plan. - Pending Discharge Pending Discharge Within 24 Hours: Yes Pending Discharge Date: 08/08/17 Pending Discharge Time: 11:00 - Physical Exam Constitutional: chronically ill appearing, uncomfortable, No not in pain (in neck) Cardiovascular: regular rate and rhythym, no murmur, rub, or gallop, edema (1+ bilat LE), No irregularly irregular Respiratory: no respiratory distress, no rales or rhonchi, clear to auscultation Gastrointestinal: normoactive bowel sounds, soft, non-tender abdomen, no palpable masses Skin: other (slight blanchable erythema L>R LE) Neurologic: AAOx3 Psychiatric: not anxious, not encephalopathic, thought process linear, other ( lethargic but arousable to voice), No agitated ICD10 Worksheet Patient Problems: Problems Problem Status Onset Rib fracture Acute Lower extremity cellulitis Acute Dyspnea Acute Neck pain Acute Pneumonia Acute Elevated troponin Acute Sepsis Acute
--- NOTE | 2017-08-07 16:41 | PCMIDPN ---
Assessment/Plan: Assessment: Group a strep bacteremia and sepsis secondary to a lower extremity skin and soft tissue source. Although both feet and lower legs are involved in and erythematous dermatitis probably secondary to fungal infection they appear to be improving. Plan would be to continue the IV ceftriaxone as well as fluconazole. Plan: 1. Continue IV ceftriaxone. 2. Start oral fluconazole 100 mg p.o. daily. 3. Follow clinical improvement. 4. Follow repeat blood cultures. Subjective: Patient is sitting in her chair in her hospital room. She notes no new issues. She continues to note that her feet are feeling better. No fevers or chills. Objective: Ceftriaxone # 6 Fluconazole # 5 Vital Signs Temp Pulse Resp BP Pulse Ox 36.9 C 105 H 15 121/64 H 91 L 08/07/17 15:33 08/07/17 15:33 08/07/17 15:33 08/07/17 15:33 08/07/17 15:33 Laboratory Results 08/07/17 10:05 08/07/17 10:05 08/06/17 08/07/17 08/08/17 05:59 05:59 05:59 Intake Total 992 880 610 Output Total 1250 3650 625 Balance -258 -2770 -15 - Physical Exam General Appearance: WD/WN, alert, no apparent distress, non-toxic Respiratory: lungs clear, normal breath sounds, No respiratory distress Cardiac/Chest: regular rate, rhythm, No tachycardia Extremities: non-tender, normal inspection, inflammation (Bilateral feet), erythema (Mild and improving) Skin: normal color, warm/dry, No rash Neuro/Psych: alert, normal mood/affect, oriented x 3 ICD10 Worksheet Patient Problems: Problems Problem Status Onset Dyspnea Acute Elevated troponin Acute Lower extremity cellulitis Acute Pneumonia Acute Sepsis Acute Neck pain Acute Rib fracture Acute
[2017-08-07] MEDS: ACETAMINOPHEN 325 MG TAB PO PRN (20:42)
[2017-08-07] MEDS: AMITRIPTYLINE HCL 25 MG TAB PO SCH (20:42)
[2017-08-07] MEDS: LEFLUNOMIDE 20 MG TAB PO SCH (20:43)
[2017-08-07] MEDS: BETAMETHASONE AUGMENTED 0.05% 15GM CREAM TP SCH (20:43)
[2017-08-08 04:42] LABS: % IMMATURE GRANULYOCYTES 0.8 % (0.0-1.1); ABSOLUTE IMMATURE GRANULOCYTES 0.09 10^3/uL (0.00-0.10); ADD DIFF? NO; ADD MORPH? NO; ADD SCAN? NO; ATYPICAL LYMPHOCYTE FLAG 0 (0-99); FRAGMENT RBC FLAG 0 (0-99); HEMATOCRIT 25.6 % (38.0-47.0); HEMOGLOBIN 8.2 g/dL (12.6-16.3); LEFT SHIFT FLG 10 (0-99); LIPEMIA HEMOLYSIS FLAG 80 (0-99); MEAN CELL HEMOGLOBIN 30.9 pg (27.9-34.1); MEAN CELL VOLUME 96.6 fL (81.5-99.8); MEAN PLATELET VOLUME 9.5 fL (8.7-11.7); PLATELET CLUMPS FLAG 0 (0-99); PLATELET COUNT 349 10^3/uL (150-400); RED BLOOD CELL COUNT 2.65 10^6/uL (4.18-5.33); RED CELL DISTRIBUTION WIDTH 13.9 % (11.5-15.2)
[2017-08-08] MEDS: oxyCODONE IR 5 MG TAB PO PRN ×3 (04:45→21:37)
[2017-08-08 05:02] LABS: ANION GAP 4 mEq/L (8-16); CALCIUM 7.8 mg/dL (8.5-10.4); CARBON DIOXIDE 38 mEq/l (22-31); CHLORIDE 91 mEq/L (97-110); CREATININE 0.6 mg/dL (0.6-1.0); GLOMERULAR FILTRATION RATE > 60; GLUCOSE 89 mg/dL (70-100); POTASSIUM 3.9 mEq/L (3.5-5.2); SODIUM 133 mEq/L (134-144)
[2017-08-08] MEDS: MAGNESIUM OXIDE 400 MG TAB PO SCH (08:11)
[2017-08-08] MEDS: GABAPENTIN 100 MG CAP PO SCH ×2 (08:11→21:34)
[2017-08-08] MEDS: FUROSEMIDE 40 MG TAB PO SCH (08:11)
[2017-08-08] MEDS: SENNOSIDES/DOCUSATE SODIUM TAB PO SCH ×2 (08:11→21:46)
[2017-08-08] MEDS: CARVEDILOL 6.25 MG TAB PO SCH ×2 (08:12→21:39)
[2017-08-08] MEDS: APIXABAN 5 MG TAB PO SCH ×2 (08:12→21:35)
[2017-08-08] MEDS: FLUCONAZOLE 100 MG TAB PO SCH (08:15)
[2017-08-08] MEDS: FLUOCINOLONE 0.01% TP SCH (08:22)
[2017-08-08] MEDS: [UNRECOGNIZED DRUG - REMARK] TP SCH (08:22)
[2017-08-08] MEDS ORDERED: FUROSEMIDE 40 MG TAB PO SCH (09:13)
[2017-08-08] MEDS: FLUTICASONE/SALMETER 250/50MCG DISKUS IH SCH ×2 (09:17→22:27)
--- NOTE | 2017-08-08 10:43 | HOSPPROG ---
Hospitalist Progress Note Assessment/Plan: Assessment: 72 yo F w/ hx of COPD and recent c6 compression fracture presenting with acute encephalopathy and septic shock in setting of strep pyo bacteremia Plan: # septic shock: poa, patient meeting criteria for severe sepsis and progressed to septic shock requiring NE for pressure support, weaned off, PICC in place, leukocytosis normalized, lactate cleared, abx as below # strep pyogenes bacteremia: with source either felt to be cellulitis, Echo without vegetations -08/02 NGTD, repeating BCx today to ensure other organisms (specifically MRSA) -cont on CTX, D#05/27 # LLL PNA: poa, noted on serial cxr, high risk for aspiration given c collar in place prior to admission, now on ctx as above -VFSS with mild-mod dysphagia and no e/o aspiration -WBC rising, cough increasing, getting CXR to reassess -scheduled mucinex -monitor for another 24hrs to ensure new infxn w/ different organisms is not evolving # cellulitis: with bilateral erythema and underlying venous stasis, ID feels this is the likely culprit with source of entry being fungal dermatitis as next -pain mgmt on bilat feet [place], able to ambulate w/ assist -counseled patient that she will definitely require SNF w/ rehab/wound care -adjusted lasix today given improvement in edema, rising serum bicarb level -palliative care consultation today to help establish goals # fungal dermatitis: likely the precipitating cause of the feet fissuring -cont fluconazole # anemia: iron studies most c/w mixed picture of anemia of chronic disease/ possibly some iron deficiency contributing -recommend op colonoscopy # jason: in setting of septic shock, resolved with fluid resuscitation # acute encephalopathy: present on admission but resolved, likely toxic in setting of infxn and metabolic in setting of JASON # elevated trop: appreciate cardiology evaluation, likely demand -reintroduced bblocker w/ good effect, adjusted to 6.25/12.5 # h/o PE: resumed on apixaban without further drop in h/h # c6 compression fracture: nsg cleared for removal of c collar -has dose range of oxy IR + tylenol, not particularly effective, used PRN IV morphine today -recommend heat blankets and non-narcotic methods, as further increases in her opiate will likely precipitate encephalopathy/falls as outpt diet. regular code. full ppx. high risk, on eliquis dispo. ADD 08/09, pending placement and resolution of above, s/p palliative conference to establish goals, above work-up High level of medical complexity, high risk of worsening morbidity/mortality 2/ 2 above. Subjective: increasing productive cough, pruritis Objective: Vital Signs Temp Pulse Resp BP Pulse Ox 36.5 C 90 14 128/74 H 97 08/08/17 08:00 08/08/17 09:23 08/08/17 09:23 08/08/17 08:12 08/08/17 09:23 Microbiology 08/02/17 13:50 Blood Culture - Final Blood 08/02/17 13:30 Blood Culture - Final Blood Laboratory Results 08/08/17 03:43 08/08/17 03:43 08/07/17 08/08/17 08/09/17 05:59 05:59 05:59 Intake Total 880 1232 Output Total 3650 2250 Balance -2770 -1018 PT 15.7 SEC (12.0-15.0) H 07/31/17 13:25 INR 1.25 (0.83-1.16) H 07/31/17 13:25 - Pending Discharge Pending Discharge Within 24 Hours: Yes Pending Discharge Date: 08/09/17 Pending Discharge Time: 11:00 - Physical Exam Constitutional: no apparent distress, not in pain, chronically ill appearing, uncomfortable (neck) Cardiovascular: regular rate and rhythym, no murmur, rub, or gallop, edema ( trace bilat LE), No irregularly irregular, No tachycardia Respiratory: reduced air movement (bilat bases), inspiratory crackles, No expiratory wheeze, No bronchial breath sounds, No respiratory distress Gastrointestinal: normoactive bowel sounds, soft, non-tender abdomen, no palpable masses, No distension Neurologic: AAOx3, sensation intact bilaterally Psychiatric: interacting appropriately, not anxious, not encephalopathic, thought process linear ICD10 Worksheet Patient Problems: Problems Problem Status Onset Rib fracture Acute Lower extremity cellulitis Acute Dyspnea Acute Neck pain Acute Pneumonia Acute Elevated troponin Acute Sepsis Acute
[2017-08-08] MEDS: guaiFENesin 600 MG TAB.ER PO SCH ×2 (11:21→21:36)
[2017-08-08] MEDS: ACETAMINOPHEN 325 MG TAB PO PRN (11:21)
[2017-08-08] MEDS: diphenhydrAMINE 25 MG CAP PO PRN (11:21)
--- NOTE | 2017-08-08 13:41 | PCMIDPN ---
Assessment/Plan: Assessment/Plan: * Group A strep bacteremia/sepsis due to bilateral lower extremity cellulitis: Repeat blood culture show clearing of bacteremia. Cellulitis now resolved and dermatitis over feet markedly decreased. Continue ceftriaxone with anticipated 14 day course of treatment (day # 7/14). * Rash: May be drug related but is not limiting at this point in time. Will continue to follow clinically. * Leukocytosis: Continue to follow. Suspect primarily related to resolving cellulitis at this point in time. 08/08/17 13:38 Subjective: Feels much better. Feet significantly less painful. Does note pruritic rash over arms. Objective: Vital Signs Temp Pulse Resp BP Pulse Ox 36.5 C 90 14 103/57 L 95 08/08/17 08:00 08/08/17 12:00 08/08/17 12:00 08/08/17 12:00 08/08/17 12:00 Microbiology 08/02/17 13:50 Blood Culture - Final Blood 08/02/17 13:30 Blood Culture - Final Blood Laboratory Results 08/08/17 03:43 08/08/17 03:43 08/07/17 08/08/17 08/09/17 05:59 05:59 05:59 Intake Total 880 1232 480 Output Total 3650 2250 7376 [facility] -2770 -1018 -620 Ceftriaxone # 7 Fluconazole # 6 Blood cultures 08/02/2017 no growth - Physical Exam General Appearance: alert, no apparent distress EENT: other (No conjunctival injection or oral ulcerations), No thrush Respiratory: crackles (Bilateral bases) Cardiac/Chest: regular rate, rhythm Extremities: inflammation (Cellulitic component over both lower extremities now resolved) Abdomen: non-tender, No distended Skin: rash (Macular papular rash over forearms and thighs bilaterally with sparing of back, abdomen and chest; dermatitis over feet markedly improved) - Line/s RUE PICC Lines: No drainage, No erythema ICD10 Worksheet Patient Problems: Problems Problem Status Onset Dyspnea Acute Elevated troponin Acute Lower extremity cellulitis Acute Pneumonia Acute Sepsis Acute Neck pain Acute Rib fracture Acute
[2017-08-08 14:11] LABS: ALBUMIN 2.3 g/dL (3.5-5.0); BILIRUBIN,TOTAL 0.4 mg/dL (0.1-1.4); BILIRUBIN-CONJUGATED 0.4 mg/dL (0.0-0.5); TOTAL PROTEIN 4.9 g/dL (6.3-8.2)
--- NOTE | 2017-08-08 14:52 | ASMTCMCOM ---
CM Note CM Note Notes: 08/08/2017 Case Management Note: Faxed updates to [facility]. Palliative consult today, please see notes for details. Pt plans to [facility] into [facility] closer to son in [place] after rehab stay completed. Anticipating d/c mid week. Case Management to follow. CM Note 08/06/2017 Case Management Note: Faxed updates to [facility]. Ready to accept pt when medically stable. Case Management to arrange transport at d/c: anticipate wheelchair with O2. Outpatient palliative to start at [facility]. Case Management to follow. 08/02 2017 CM Note I spoke with patient and her son re: discharge planning. They agree that patient needs SNF rehab before going home. Patient was at [facility] earlier this summer and requests to go back. Ludmila at [facility] confirmed receipt of my referral and can accept patient upon discharge. CM to follow. Date Signed: 08/08/2017 02:51 PM Electronically Signed By:Viktoria Trujillo RN
[2017-08-08] MEDS: AMITRIPTYLINE HCL 25 MG TAB PO SCH (21:35)
[2017-08-08] MEDS: LEFLUNOMIDE 20 MG TAB PO SCH (21:36)
[2017-08-08] MEDS: clonazePAM 0.5 MG TAB PO PRN (21:36)
[2017-08-08] MEDS: BETAMETHASONE AUGMENTED 0.05% 15GM CREAM TP SCH (21:46)
[2017-08-09 05:34] LABS: % IMMATURE GRANULYOCYTES 0.8 % (0.0-1.1); ABSOLUTE IMMATURE GRANULOCYTES 0.09 10^3/uL (0.00-0.10); ADD DIFF? NO; ADD MORPH? NO; ADD SCAN? NO; ATYPICAL LYMPHOCYTE FLAG 0 (0-99); FRAGMENT RBC FLAG 0 (0-99); HEMATOCRIT 24.4 % (38.0-47.0); HEMOGLOBIN 7.8 g/dL (12.6-16.3); LEFT SHIFT FLG 0 (0-99); LIPEMIA HEMOLYSIS FLAG 80 (0-99); MEAN CELL HEMOGLOBIN 30.8 pg (27.9-34.1); MEAN CELL VOLUME 96.4 fL (81.5-99.8); MEAN PLATELET VOLUME 9.6 fL (8.7-11.7); PLATELET CLUMPS FLAG 0 (0-99); PLATELET COUNT 336 10^3/uL (150-400); RED BLOOD CELL COUNT 2.53 10^6/uL (4.18-5.33); RED CELL DISTRIBUTION WIDTH 13.8 % (11.5-15.2)
[2017-08-09 06:04] LABS: ANION GAP 1 mEq/L (8-16); CARBON DIOXIDE 39 mEq/l (22-31); CHLORIDE 89 mEq/L (97-110); CREATININE 0.6 mg/dL (0.6-1.0); GLOMERULAR FILTRATION RATE > 60; GLUCOSE 89 mg/dL (70-100); POTASSIUM 3.6 mEq/L (3.5-5.2); SODIUM 129 mEq/L (134-144)
[2017-08-09] MEDS: oxyCODONE IR 5 MG TAB PO PRN ×4 (06:37→21:35)
[2017-08-09] MEDS: SENNOSIDES/DOCUSATE SODIUM TAB PO SCH ×2 (07:30→21:36)
[2017-08-09] MEDS: ACETAMINOPHEN 325 MG TAB PO PRN ×2 (08:26→13:50)
[2017-08-09] MEDS: FLUTICASONE/SALMETER 250/50MCG DISKUS IH SCH ×2 (08:33→22:50)
[2017-08-09] MEDS ORDERED: POTASSIUM CL 20 MEQ TAB PO ONE (09:01)
[2017-08-09] MEDS: FLUCONAZOLE 100 MG TAB PO SCH (09:09)
[2017-08-09] MEDS: MAGNESIUM OXIDE 400 MG TAB PO SCH (09:09)
[2017-08-09] MEDS: APIXABAN 5 MG TAB PO SCH ×2 (09:09→21:41)
[2017-08-09] MEDS: GABAPENTIN 100 MG CAP PO SCH ×2 (09:10→21:27)
[2017-08-09] MEDS: guaiFENesin 600 MG TAB.ER PO SCH ×2 (09:10→21:30)
[2017-08-09] MEDS: CARVEDILOL 6.25 MG TAB PO SCH ×2 (09:10→21:30)
[2017-08-09] MEDS: diphenhydrAMINE 25 MG CAP PO PRN (09:17)
[2017-08-09] MEDS: [UNRECOGNIZED DRUG - REMARK] TP SCH (11:06)
[2017-08-09] MEDS: FLUOCINOLONE 0.01% TP SCH (11:06)
--- NOTE | 2017-08-09 14:34 | HOSPPROG ---
Hospitalist Progress Note Assessment/Plan: Assessment: 72 yo F w/ hx of COPD and recent c6 compression fracture presenting with acute encephalopathy and septic shock in setting of strep pyo bacteremia c/ b hyponatremia, pleural effusion Plan: # septic shock: poa, patient meeting criteria for severe sepsis and progressed to septic shock requiring NE for pressure support, weaned off, PICC in place, leukocytosis normalized, lactate cleared, abx as below # strep pyogenes bacteremia: with source either felt to be cellulitis, Echo without vegetations -08/02 NGTD, repeating BCx NGTD in setting of worsening leukocytosis -D #06/27 -appreciate ongoing ID consultation # LLL PNA: poa, noted on serial cxr, high risk for aspiration given c collar in place prior to admission, now on ctx as above -VFSS with mild-mod dysphagia and no e/o aspiration -WBC plateau'd, CXR does not appear to have expanding PNA, personally interpreted -scheduled mucinex # pleural effusion: RLL, likely volume but could be parapneumonic -will hold eliquis (last dose 08/09 AM), and plan on diagnostic/therapeutic thora tomorrow (d/w patient), which may also improve symptom of shortness of breath w/ exertion -stopping lasix temporarily given rising bicarb level/hyponatremia # hyponatremia: acute, likely 2/2 lasix, but patient does report high vol PO fluid intake -check Ottoniel to eval for SIADH component -place on 1.5L daily restriction -stop lasix -repeat level in AM, may be contributing to her feeling of gen weakness # cellulitis: with bilateral erythema and underlying venous stasis, ID feels this is the likely culprit with source of entry -pain mgmt on bilat feet OK, able to ambulate w/ assist -palliative care consultation established that patient wants to go to rehab, then establish care at [facility], which is being arranged by her family # fungal dermatitis: likely the precipitating cause of the feet fissuring -cont fluconazole # anemia: iron studies most c/w mixed picture of anemia of chronic disease/ possibly some iron deficiency contributing -recommend op colonoscopy, if functional status improves # jason: in setting of septic shock, resolved with fluid resuscitation # acute encephalopathy: present on admission but resolved, likely toxic in setting of infxn and metabolic in setting of JASON # elevated trop: appreciate cardiology evaluation, likely demand -reintroduced bblocker w/ good effect # h/o PE: occurred in 2014, will temporarily hold while awaiting thoracentesis # c6 compression fracture: nsg cleared for removal of c collar -has dose range of oxy IR + tylenol, not particularly effective, used PRN IV morphine today -recommend heat blankets and non-narcotic methods, as further increases in her opiate will likely precipitate encephalopathy/falls as outpt # acute hypoxic respiratory failure: evidenced by SpO2 82%, requiring up to 9LPM high flow, symptomatic shortness of breath and objective tachypnea, 2/2 PNA and pleural effusion -cont on 3.5LPM -will need supplemental o2 at DC diet. regular code. full ppx. high risk, on eliquis dispo. ADD 08/11, pending placement and resolution of above High level of medical complexity, high risk of worsening morbidity/mortality 2/ 2 above. Subjective: patient reports gen weakness, exertional SOB Objective: Vital Signs Temp Pulse Resp BP Pulse Ox 36.5 C 87 16 112/65 98 08/09/17 11:16 08/09/17 11:16 08/09/17 11:16 08/09/17 11:16 08/09/17 11:16 Microbiology 08/02/17 13:50 Blood Culture - Final Blood 08/02/17 13:30 Blood Culture - Final Blood Laboratory Results 08/09/17 04:40 08/09/17 04:40 08/08/17 08/09/17 08/10/17 05:59 05:59 05:59 Intake Total 1232 1160 400 Output Total 2250 1950 20 Balance -1018 -790 380 PT 15.7 SEC (12.0-15.0) H 07/31/17 13:25 INR 1.25 (0.83-1.16) H 07/31/17 13:25 - Physical Exam Constitutional: no apparent distress, not in pain, chronically ill appearing, uncomfortable Cardiovascular: regular rate and rhythym, no murmur, rub, or gallop, edema ( trace bilat LE), other (intermittent ectopic beats), No irregularly irregular, No tachycardia Respiratory: reduced air movement (R base), inspiratory crackles (right mid seg) , No expiratory wheeze, No bronchial breath sounds, No respiratory distress Gastrointestinal: normoactive bowel sounds, soft, non-tender abdomen, no palpable masses, No distension Skin: other (dry, flaking skin bilat LE w/ fissuring) Neurologic: AAOx3, sensation intact bilaterally, weakness (4/5 motor bilat LE) Psychiatric: interacting appropriately, not anxious, not encephalopathic, thought process linear ICD10 Worksheet Patient Problems: Problems Problem Status Onset Dyspnea Acute Elevated troponin Acute Lower extremity cellulitis Acute Pneumonia Acute Sepsis Acute Neck pain Acute Rib fracture Acute
[2017-08-09 16:23] LABS: LACTATE DEHYDROGENASE 305 IU/L (313-618)
--- NOTE | 2017-08-09 16:39 | PCMIDPN ---
Assessment/Plan: # Sepsis secondary to GAS bacteremia, source thought to be B-LE cellulitis --increase to ceftriaxone 2gm IV daily for bacteremia --antibiotics for 2 weeks, 08/16/17 # Leukocytosis, mild hypoxia. Loose stool today. CXR reviewed with infiltrate RLL, appears more like atelectasis --monitor BMs, hold off on testing cdiff # Possible Tinea Pedis --dc fluconazole, s/p 7 days meds ceftriaxone #8 micro 08/02 blood cx (2) Negative 08/08 blood cx (2) NGTD Subjective: much less foot pain 2 loose stools/day thought secondary to laxatives Objective: Vital Signs Temp Pulse Resp BP Pulse Ox 36.6 C 87 15 110/65 99 08/09/17 16:00 08/09/17 16:00 08/09/17 16:00 08/09/17 16:00 08/09/17 16:00 Laboratory Results 08/09/17 04:40 08/09/17 04:40 08/08/17 08/09/17 08/10/17 05:59 05:59 05:59 Intake Total 1232 1160 400 Output Total 2250 1950 720 Balance -1018 -790 -320 - Physical Exam General Appearance: alert, no apparent distress EENT: pale conjunctiva, No scleral icterus Respiratory: crackles (R>L at bases) Neck: supple Cardiac/Chest: regular rate, rhythm Extremities: pedal edema, erythema (faint erythema on Feet Bilaterally with scale ) Abdomen: normal bowel sounds, non-tender, soft Pelvic Exam: No jules Neuro/Psych: alert, normal mood/affect, oriented x 3 ICD10 Worksheet Patient Problems: Problems Problem Status Onset Dyspnea Acute Elevated troponin Acute Lower extremity cellulitis Acute Pneumonia Acute Sepsis Acute Neck pain Acute Rib fracture Acute
[2017-08-09] MEDS: LEFLUNOMIDE 20 MG TAB PO SCH (21:28)
[2017-08-09] MEDS: AMITRIPTYLINE HCL 25 MG TAB PO SCH (21:31)
[2017-08-09] MEDS: ZOLPIDEM TARTRATE 5 MG TAB PO PRN (21:36)
[2017-08-09] MEDS: BETAMETHASONE AUGMENTED 0.05% 15GM CREAM TP SCH (21:42)
[2017-08-10 06:12] LABS: % IMMATURE GRANULYOCYTES 0.8 % (0.0-1.1); ABSOLUTE IMMATURE GRANULOCYTES 0.08 10^3/uL (0.00-0.10); ADD DIFF? NO; ADD MORPH? NO; ADD SCAN? NO; ATYPICAL LYMPHOCYTE FLAG 20 (0-99); FRAGMENT RBC FLAG 0 (0-99); HEMATOCRIT 25.1 % (38.0-47.0); LEFT SHIFT FLG 0 (0-99); LIPEMIA HEMOLYSIS FLAG 80 (0-99); MEAN CELL HEMOGLOBIN 31.3 pg (27.9-34.1); MEAN CELL HEMOGLOBIN CONCENTR. 31.9 g/dL (32.4-36.7); PLATELET CLUMPS FLAG 0 (0-99); PLATELET COUNT 378 10^3/uL (150-400); RED BLOOD CELL COUNT 2.56 10^6/uL (4.18-5.33); RED CELL DISTRIBUTION WIDTH 13.9 % (11.5-15.2)
[2017-08-10 06:59] LABS: ANION GAP 3 mEq/L (8-16); CALCIUM 8.3 mg/dL (8.5-10.4); CARBON DIOXIDE 35 mEq/l (22-31); CHLORIDE 93 mEq/L (97-110); CREATININE 0.6 mg/dL (0.6-1.0); GLOMERULAR FILTRATION RATE > 60; GLUCOSE 91 mg/dL (70-100); MAGNESIUM 1.7 mg/dL (1.6-2.3); POTASSIUM 4.2 mEq/L (3.5-5.2); SODIUM 131 mEq/L (134-144)
[2017-08-10] MEDS: APIXABAN 5 MG TAB PO SCH ×3 (07:13→21:10)
[2017-08-10] MEDS: [UNRECOGNIZED DRUG - REMARK] TP SCH (07:14)
[2017-08-10] MEDS: SENNOSIDES/DOCUSATE SODIUM TAB PO SCH ×2 (07:15→21:05)
[2017-08-10] MEDS: FLUOCINOLONE 0.01% TP SCH (07:15)
[2017-08-10] MEDS: oxyCODONE IR 5 MG TAB PO PRN ×3 (08:20→21:09)
[2017-08-10] MEDS: MAGNESIUM OXIDE 400 MG TAB PO SCH (08:23)
[2017-08-10] MEDS: CARVEDILOL 6.25 MG TAB PO SCH ×2 (08:26→21:02)
[2017-08-10] MEDS: guaiFENesin 600 MG TAB.ER PO SCH ×2 (08:26→21:00)
[2017-08-10] MEDS: GABAPENTIN 100 MG CAP PO SCH ×2 (08:27→20:58)
--- NOTE | 2017-08-10 08:42 | HOSPPROG ---
Hospitalist Progress Note Assessment/Plan: Assessment: 72 yo F w/ hx of COPD and recent c6 compression fracture presenting with acute encephalopathy and septic shock in setting of GAS bacteremia c/b hyponatremia, pleural effusion Plan: # septic shock: poa, patient meeting criteria for severe sepsis and progressed to septic shock requiring NE for pressure support, sinced weaned off, PICC in place, leukocytosis normalized, lactate cleared, abx as below # strep pyogenes bacteremia: source LE cellulitis, Echo without vegetations -08/02 NGTD, repeat BCx NGTD -cont ceftriaxone -case discussed with ID, atbx stop date 08/16 # ?LLL PNA: Noted on serial cxr, high risk for aspiration given c collar in place prior to admission. VFSS with mild-mod dysphagia and no e/o aspiration. Recent CXR personally reviewed and interpreted, right basilar consolidation vs compressive atelectasis. -on ceftriaxone as above -scheduled mucinex # pleural effusion: RLL, likely volume but could be parapneumonic. U/S for thora today without significant fluid, deferred. Clinically stable. -resume eliquis (held for possible procedure) -lasix held due to rising CO2, though note weight up 10 kg from admission. Will resume Lasix at lower dose. # hyponatremia: mild serum Na >130, possibly 2/2 lasix, though urine sodium c/w SIADH component -cont 1.5L fluid restriction -follow # cellulitis: with bilateral erythema and underlying venous stasis, ID feels this is the likely culprit with source of entry -pain mgmt on bilat feet [place], able to ambulate w/ assist # fungal dermatitis: likely the precipitating cause of the feet fissuring -cont fluconazole # anemia: iron studies most c/w mixed picture of anemia of chronic disease/ possibly some iron deficiency contributing -recommend op colonoscopy, if functional status improves # jason: in setting of septic shock, resolved with fluid resuscitation # acute encephalopathy: present on admission but resolved, likely toxic in setting of infxn and metabolic in setting of JASON # elevated trop: appreciate cardiology evaluation, likely demand -reintroduced bblocker w/ good effect # h/o PE: occurred in 2014, resume eliquis today # c6 compression fracture: nsg cleared for removal of c collar -has dose range of oxy IR + tylenol, not particularly effective, used PRN IV morphine today -recommend heat blankets and non-narcotic methods, as further increases in her opiate will likely precipitate encephalopathy/falls as outpt # acute hypoxic respiratory failure: evidenced by SpO2 82%, requiring up to 9LPM high flow, now on 3 LPM. symptomatic shortness of breath and objective tachypnea, 2/2 PNA and pleural effusion -will need supplemental o2 at DC diet. regular code. full ppx. high risk, on eliquis dispo. ADD 08/11, pending placement and resolution of above. palliative care consultation established that patient wants to go to rehab, then establish care at [facility], which is being arranged by her family High level of medical complexity, high risk of worsening morbidity/mortality 2/ 2 above. Subjective: Pt feels well. Denies CP, SOB. Feels swelling in legs is the same. No fevers. Objective: Vital Signs Temp Pulse Resp BP Pulse Ox 36.7 C 87 18 128/97 H 97 08/10/17 08:00 08/10/17 08:00 08/10/17 08:00 08/10/17 08:00 08/10/17 08:00 Microbiology 08/09/17 16:30 - Final Sputum, Expectorated Laboratory Results 08/10/17 06:05 08/10/17 06:05 08/09/17 08/10/17 08/11/17 05:59 05:59 05:59 Intake Total 1160 700 Output Total 1950 1195 Balance -790 -495 PT 15.7 SEC (12.0-15.0) H 07/31/17 13:25 INR 1.25 (0.83-1.16) H 07/31/17 13:25 - Physical Exam Constitutional: no apparent distress Eyes: PERRL Ears, Nose, Mouth, Throat: moist mucous membranes Cardiovascular: regular rate and rhythym Respiratory: no respiratory distress, clear to auscultation Gastrointestinal: normoactive bowel sounds, soft, non-tender abdomen Skin: warm Musculoskeletal: other (2+ b/l LE edema, with ?decreasing erythema) Neurologic: AAOx3 Psychiatric: interacting appropriately ICD10 Worksheet Patient Problems: Problems Problem Status Onset Dyspnea Acute Elevated troponin Acute Lower extremity cellulitis Acute Pneumonia Acute Sepsis Acute Neck pain Acute Rib fracture Acute
[2017-08-10] MEDS: cefTRIAXone 2 GM in D5W 50 ML IV SCH (09:26)
[2017-08-10] MEDS: ACETAMINOPHEN 325 MG TAB PO PRN ×2 (09:38→15:58)
--- NOTE | 2017-08-10 09:57 | PCMIDPN ---
Assessment/Plan: # Sepsis secondary to GAS bacteremia, source thought to be B-LE cellulitis. Erythema on bilateral feet stable today, worse swelling than my exam yesterday but likely function of dependency at time of my exam today. Rapid clearance of blood cultures and negative TTE goes against endocarditis. --continue ceftriaxone 2gm IV daily for bacteremia --antibiotics for 2 weeks, 08/16/17 --elevated LE as much as feasible # Leukocytosis, mild hypoxia. WBC stable today, diarrhea resolved # Possible Tinea Pedis s/p 7 days fluconazole meds ceftriaxone 2gm IV daily #9 micro 08/02 blood cx (2) Negative 08/08 blood cx (2) NGTD 08/09 sputum cx: pending Subjective: slept well last night no further diarrhea Objective: Vital Signs Temp Pulse Resp BP Pulse Ox 36.7 C 87 18 128/97 H 97 08/10/17 08:00 08/10/17 08:00 08/10/17 08:00 08/10/17 08:00 08/10/17 08:00 Microbiology 08/09/17 16:30 - Final Sputum, Expectorated Laboratory Results 08/10/17 06:05 08/10/17 06:05 08/09/17 08/10/17 08/11/17 05:59 05:59 05:59 Intake Total 1160 700 50 Output Total 1950 1195 25 Balance -790 -495 25 - Physical Exam General Appearance: alert, no apparent distress Respiratory: crackles (right base) Cardiac/Chest: regular rate, rhythm, systolic murmur Extremities: pedal edema, inflammation, other (swollen feet B ; scaling sking, mild tenderness to palpation and erythema) Abdomen: non-tender, soft Skin: No rash, No embolic lesions Neuro/Psych: alert, normal mood/affect, oriented x 3 - Line/s RUE PICC Lines: No drainage, No erythema ICD10 Worksheet Patient Problems: Problems Problem Status Onset Dyspnea Acute Elevated troponin Acute Lower extremity cellulitis Acute Pneumonia Acute Sepsis Acute Neck pain Acute Rib fracture Acute
[2017-08-10] MEDS: FLUTICASONE/SALMETER 250/50MCG DISKUS IH SCH ×2 (10:18→22:56)
[2017-08-10] MEDS: diphenhydrAMINE 25 MG CAP PO PRN (11:20)
--- NOTE | 2017-08-10 16:57 | WOCRNPDOC ---
WOCRN Advanced Assessment Note - Skin Integrity Problem, Advanced Assess Left Buttock Site Measurement - Head-to-Toe Length X Width X Depth (cm): Superior: 6cmx3.7cmx0.2cm. Inferior: 1.7cmx1.5cmx0.1cm Left Hip Pressure Injury Dressing Type: Allevyn Life Other Dressing Type: x2 Dressing Description: Clean/Dry, Intact Exudate Amount: None Integumentary Issue Intervention: Dressing Changed, Dressing Initialed & Dated Eh Wound Tissue: Erythema Wound Bed Color: Brown, Red Wound Bed Constitution: Granulation Tissue, Mixed Loose & Adhered Slough/Eschar Site Measurement - Head-to-Toe Length X Width X Depth (cm): Superior: 6cmx3.7cmx0.2cm. Inferior: 1.7cmx1.5cmx0.1cm Pressure Injury Stage: Stage 3, Unstageable Skin Integrity Problem Comment: Wound originally a DTI, now presenting as an area of full thickness opening and smaller areas which are still evolving and covered with a mix of slough and brown eschar. Wound cleaned with NS and gauze. Attempted to mechanically remove some of the slough. Skin prep applied to eh wound skin. Honey gel applied to wound base and telfa was cut to cover superior and inferior wound separately. Each was then covered with an Allevyn life. Patient tolerated procedure well. Carin BALLARD present in room.
[2017-08-10] MEDS: AMITRIPTYLINE HCL 25 MG TAB PO SCH (21:00)
[2017-08-10] MEDS: LEFLUNOMIDE 20 MG TAB PO SCH (21:01)
[2017-08-10] MEDS: ZOLPIDEM TARTRATE 5 MG TAB PO PRN (21:10)
[2017-08-11] MEDS: BETAMETHASONE AUGMENTED 0.05% 15GM CREAM TP SCH ×2 (00:16→20:09)
[2017-08-11 06:30] LABS: % IMMATURE GRANULYOCYTES 0.5 % (0.0-1.1); ABSOLUTE IMMATURE GRANULOCYTES 0.05 10^3/uL (0.00-0.10); ADD DIFF? NO; ADD MORPH? NO; ADD SCAN? NO; ATYPICAL LYMPHOCYTE FLAG 20 (0-99); FRAGMENT RBC FLAG 0 (0-99); HEMATOCRIT 26.3 % (38.0-47.0); HEMOGLOBIN 8.4 g/dL (12.6-16.3); LEFT SHIFT FLG 0 (0-99); LIPEMIA HEMOLYSIS FLAG 80 (0-99); MEAN CELL HEMOGLOBIN CONCENTR. 31.9 g/dL (32.4-36.7); PLATELET CLUMPS FLAG 0 (0-99); PLATELET COUNT 420 10^3/uL (150-400); RED BLOOD CELL COUNT 2.71 10^6/uL (4.18-5.33); RED CELL DISTRIBUTION WIDTH 13.7 % (11.5-15.2)
[2017-08-11 06:42] LABS: ANION GAP 2 mEq/L (8-16); CALCIUM 8.7 mg/dL (8.5-10.4); CARBON DIOXIDE 36 mEq/l (22-31); CHLORIDE 93 mEq/L (97-110); CREATININE 0.6 mg/dL (0.6-1.0); GLOMERULAR FILTRATION RATE > 60; GLUCOSE 120 mg/dL (70-100); SODIUM 131 mEq/L (134-144)
[2017-08-11] MEDS: SENNOSIDES/DOCUSATE SODIUM TAB PO SCH ×2 (07:59→20:09)
[2017-08-11] MEDS ORDERED: FUROSEMIDE 20 MG TAB PO SCH (09:00)
[2017-08-11] MEDS: APIXABAN 5 MG TAB PO SCH ×2 (09:25→20:04)
[2017-08-11] MEDS: CARVEDILOL 6.25 MG TAB PO SCH ×2 (09:26→20:04)
[2017-08-11] MEDS: cefTRIAXone 2 GM in D5W 50 ML IV SCH (09:26)
[2017-08-11] MEDS: GABAPENTIN 100 MG CAP PO SCH ×2 (09:27→20:04)
[2017-08-11] MEDS: guaiFENesin 600 MG TAB.ER PO SCH ×2 (09:27→20:03)
[2017-08-11] MEDS: oxyCODONE IR 5 MG TAB PO PRN ×3 (09:29→20:08)
[2017-08-11] MEDS: [UNRECOGNIZED DRUG - REMARK] TP SCH (09:54)
[2017-08-11] MEDS: FLUOCINOLONE 0.01% TP SCH (09:55)
--- NOTE | 2017-08-11 10:11 | HOSPPROG ---
Hospitalist Progress Note Assessment/Plan: Assessment: 72 yo F w/ hx of COPD and recent c6 compression fracture presenting with acute encephalopathy and septic shock in setting of GAS bacteremia c/b hyponatremia, pleural effusion # septic shock: resolved, off pressors, PICC in place, leukocytosis normalized, lactate cleared, abx as below # strep pyogenes bacteremia: source LE cellulitis per ID, though consider PNA / respiratory source, Echo without vegetations -08/02 NGTD, repeat BCx NGTD -cont ceftriaxone -case discussed with ID, atbx stop date 08/16 # ?LLL PNA: Noted on serial cxr, high risk for aspiration given c collar in place prior to admission. VFSS with mild-mod dysphagia, no e/o aspiration. Recent CXR personally reviewed and interpreted, right basilar consolidation vs compressive atelectasis. MRSA in sputum likely colonization. -repeat CXR as below -on ceftriaxone as above -scheduled mucinex # pleural effusion: RLL, likely volume but could be parapneumonic. U/S for thora yest attempted, but without significant fluid, deferred. Clinically stable. -resume eliquis (held for possible procedure) -Lasix held due to rising CO2, she seems to be diuresing without Lasix, will continue to monitor wt, I&O, resume at lower dose if this self-diuresis doesn't persist # chest pain: new complaint this am - check trop (neg), CXR (no change), EKG (non-ischemic) # hyponatremia: mild serum Na >130, possibly 2/2 lasix, though urine sodium c/w SIADH component -cont 1.5L fluid restriction -follow # cellulitis: with bilateral erythema and underlying venous stasis, ID feels this is the likely culprit with source of entry -cefriaxone as above -pain mgmt on bilat feet OK, able to ambulate w/ assist # fungal dermatitis: likely the precipitating cause of the feet fissuring -cont fluconazole # anemia: iron studies most c/w mixed picture of anemia of chronic disease/ possibly some iron deficiency contributing -recommend op colonoscopy, if functional status improves # jason: in setting of septic shock, resolved with fluid resuscitation # acute encephalopathy: present on admission but resolved, likely toxic in setting of infxn and metabolic in setting of JASON # elevated trop: appreciate cardiology evaluation, likely demand -reintroduced bblocker w/ good effect # h/o PE: occurred in 2014, resume eliquis today # c6 compression fracture: nsg cleared for removal of c collar -has dose range of oxy IR + tylenol, not particularly effective, used PRN IV morphine today -recommend heat blankets and non-narcotic methods, as further increases in her opiate will likely precipitate encephalopathy/falls as outpt # acute hypoxic respiratory failure: evidenced by SpO2 82%, requiring up to 9LPM high flow, now on 3 LPM. symptomatic shortness of breath and objective tachypnea, 2/2 PNA and pleural effusion -will need supplemental o2 at DC diet. regular code. full ppx. high risk, on eliquis dispo. ADD 08/11, pending placement and resolution of above. palliative care consultation established that patient wants to go to rehab, then establish care at [facility], which is being arranged by her family. Possible d/c to SNF in am. High level of medical complexity, high risk of worsening morbidity/mortality 2/ 2 above. Subjective: Pt c/o pain in chest this am. No SOB. No cough. No associated diaphoresis or radiation of pain. No N/V. Objective: Vital Signs Temp Pulse Resp BP Pulse Ox 36.4 C 85 14 117/75 90 L 08/11/17 07:40 08/11/17 09:26 08/11/17 07:40 08/11/17 09:26 08/11/17 07:40 Microbiology 08/09/17 16:30 - Final Sputum, Expectorated Laboratory Results 08/11/17 06:15 08/11/17 06:15 08/10/17 08/11/17 08/12/17 05:59 05:59 05:59 Intake Total 700 1200 Output Total 1195 2320 Balance -495 -1120 PT 15.7 SEC (12.0-15.0) H 07/31/17 13:25 INR 1.25 (0.83-1.16) H 07/31/17 13:25 - Physical Exam Constitutional: chronically ill appearing Eyes: PERRL Ears, Nose, Mouth, Throat: moist mucous membranes Cardiovascular: regular rate and rhythym Respiratory: no respiratory distress, inspiratory crackles Gastrointestinal: normoactive bowel sounds, soft, non-tender abdomen Skin: warm Musculoskeletal: generalized weakness Neurologic: AAOx3 Psychiatric: interacting appropriately ICD10 Worksheet Patient Problems: Problems Problem Status Onset Dyspnea Acute Elevated troponin Acute Lower extremity cellulitis Acute Pneumonia Acute Sepsis Acute Neck pain Acute Rib fracture Acute
--- NOTE | 2017-08-11 10:25 | CPEKG ---
Heart Rate: 83 RR Interval: 723 P-R Interval: 172 QRSD Interval: 94 QT Interval: 380 QTC Interval: 447 P Page: 80 QRS Page: -28 T Wave Page: -10 EKG Severity - BORDERLINE ECG - EKG Impression: SINUS RHYTHM EKG Impression: left anterior fascular block. EKG Impression: BORDERLINE T ABNORMALITIES, DIFFUSE LEADS Electronically Signed By: Félix Clarke 11-Aug-2017 17:26:27
[2017-08-11] MEDS: FLUTICASONE/SALMETER 250/50MCG DISKUS IH SCH ×2 (10:40→21:49)
[2017-08-11] MEDS: MAGNESIUM OXIDE 400 MG TAB PO SCH (12:11)
[2017-08-11] MEDS: ACETAMINOPHEN 325 MG TAB PO PRN (12:12)
--- NOTE | 2017-08-11 15:05 | ASMTCMCOM ---
CM Note CM Note Notes: CM spoke w/ MATT Gutierrez regarding d/c POC and reviewed chart. The plan is still to discharge to [facility] when medically stable. CM to follow. Date Signed: 08/11/2017 03:04 PM Electronically Signed By:SHAYY Felipe
--- NOTE | 2017-08-11 16:44 | PCMIDPN ---
Assessment/Plan: Assessment: Group a strep bacteremia and sepsis secondary to a lower extremity skin and soft tissue source. Although both feet and lower legs are involved in and erythematous dermatitis probably secondary to fungal infection they appear to be improving. Plan would be to continue the IV ceftriaxone.fluconazole. Plan: 1. Continue IV ceftriaxone. 2. Follow clinical improvement. 4. Follow repeat blood cultures. 08/11/17 18:29 Subjective: Patient is resting comfortably in her hospital bed. She states that her feet feel so much better. Denies any new complaints or fevers or chills. Objective: Ceftriaxone # 10 Vital Signs Temp Pulse Resp BP Pulse Ox 35.0 C L 90 12 137/80 H 96 08/11/17 15:36 08/11/17 15:36 08/11/17 15:36 08/11/17 15:36 08/11/17 15:36 Microbiology 08/09/17 16:30 - Final Sputum, Expectorated Sputum Culture - Final MRSA Laboratory Results 08/11/17 06:15 08/11/17 06:15 08/10/17 08/11/17 08/12/17 05:59 05:59 05:59 Intake Total 700 1200 700 Output Total 1195 2320 1300 Balance -495 1120 -600 - Physical Exam General Appearance: WD/WN, alert, no apparent distress, non-toxic Respiratory: lungs clear, normal breath sounds, No respiratory distress Cardiac/Chest: regular rate, rhythm, No tachycardia Skin: normal color, warm/dry, rash Neuro/Psych: alert, normal mood/affect, oriented x 3 ICD10 Worksheet Patient Problems: Problems Problem Status Onset Dyspnea Acute Elevated troponin Acute Lower extremity cellulitis Acute Pneumonia Acute Sepsis Acute Neck pain Acute Rib fracture Acute
[2017-08-11] MEDS: diphenhydrAMINE 25 MG CAP PO PRN (18:41)
[2017-08-11] MEDS: AMITRIPTYLINE HCL 25 MG TAB PO SCH (20:03)
[2017-08-11] MEDS: LEFLUNOMIDE 20 MG TAB PO SCH (20:04)
[2017-08-11] MEDS: ZOLPIDEM TARTRATE 5 MG TAB PO PRN (20:08)
[2017-08-12 06:29] LABS: ANION GAP 6 mEq/L (8-16); CALCIUM 8.3 mg/dL (8.5-10.4); CARBON DIOXIDE 32 mEq/l (22-31); CHLORIDE 96 mEq/L (97-110); CREATININE 0.6 mg/dL (0.6-1.0); GLOMERULAR FILTRATION RATE > 60; GLUCOSE 93 mg/dL (70-100); POTASSIUM 3.8 mEq/L (3.5-5.2); SODIUM 134 mEq/L (134-144)
[2017-08-12 09:59] VITALS: BP 159/88; TEMP 98.1; O2SAT 94
[2017-08-12] MEDS: cefTRIAXone 2 GM in D5W 50 ML IV SCH (10:00)
[2017-08-12] MEDS: CARVEDILOL 6.25 MG TAB PO SCH (10:01)
[2017-08-12] MEDS: MAGNESIUM OXIDE 400 MG TAB PO SCH (10:02)
[2017-08-12] MEDS: oxyCODONE IR 5 MG TAB PO PRN ×2 (10:02→14:00)
[2017-08-12] MEDS: guaiFENesin 600 MG TAB.ER PO SCH (10:02)
[2017-08-12] MEDS: APIXABAN 5 MG TAB PO SCH (10:02)
[2017-08-12] MEDS: GABAPENTIN 100 MG CAP PO SCH (10:03)
--- NOTE | 2017-08-12 10:25 | PDIAF ---
- Diagnosis Diagnosis: GAS bacteremia, LE cellulitis, C6 compression fracture Code Status: Full Code - Medication Management Discharge Medications: Medications to Continue on Transfer Amitriptyline HCl [Elavil] 75 mg PO HS #0 tab 02/14/16 [Last Taken 06/07/17] Fluticasone/Salmeter 250/50Mcg [Advair 250/50 (*)] 1 puffs IH BID #0 disk [Last Taken 05/25/17] Spironolactone [Aldactone] 50 mg PO DAILY #0 tab 02/14/16 [Last Taken 06/08/17] Albuterol Sulfate [ALBUTEROL SULFATE] 0.63 mg IH BID PRN 03/30/17 [Last Taken ] Albuterol Sulfate [Ventolin Hfa] 2 puffs IH QID PRN 03/30/17 [Last Taken ] Apixaban [Eliquis] 5 mg PO BID 03/30/17 [Last Taken 06/08/17 FIRST DOSE] Colchicine [Colchicine (*)] 0.6 mg PO HS 03/30/17 [Last Taken 06/07/17] Gabapentin 100 mg PO DAILY 03/30/17 [Last Taken 06/08/17] Gabapentin 200 mg PO HS 03/30/17 [Last Taken 06/07/17] Leflunomide 20 mg PO HS 03/30/17 [Last Taken 06/07/17] Acetaminophen [Tylenol 325mg (*)] 650 mg PO Q4HRS PRN #0 tab 03/31/17 [Last Taken 07/30/17] Magnesium Oxide [Magnesium Oxide 400 mg (*)] 400 mg PO DAILY 07/31/17 [Last Taken Unknown] clonazePAM [Klonopin (*)] 0.5 mg PO HS PRN 07/31/17 [Last Taken Unknown] rOPINIRole HCL [Ropinirole HCl] 4 mg PO HS 07/31/17 [Last Taken Unknown] Betamethasone/Propylene Glyc [Betamethasone Dp Aug 0.05% Crm] 1 sha TP HS [Last Taken Unknown] Cholecalciferol Vit D3 [Vitamin D3 (*)] 1,000 units PO DAILY 08/01/17 [Last Taken Unknown] Emollient Combination No.103 [Ceracade] 1 sha TP DAILY 08/01/17 [Last Taken Unknown] Fexofenadine HCl [Katia Allergy] 180 mg PO DAILY 08/01/17 [Last Taken Unknown] Fluocinolone 0.01% [Synalar 0.01%] 1 sha TP DAILY 08/01/17 [Last Taken Unknown] Sennosides/Docusate Sodium [Senna-Docusate Sodium Tablet] 2 each PO HS 08/01/17 [Last Taken Unknown] Carvedilol [Coreg (*)] 12.5 mg PO BID #60 tab 08/12/17 [Last Taken Unknown] Furosemide [Lasix 40 MG (*)] 20 mg PO DAILY #30 tab 08/12/17 [Last Taken Unknown ] Polyethylene Glycol 3350 [Miralax 17 gm (*)] 17 gm PO DAILY PRN pkt 08/12/17 [ Last Taken Unknown] cefTRIAXone [Rocephin] 2 gm IV DAILY vial 08/12/17 [Last Taken Unknown] oxyCODONE IR [Oxycodone Ir (*)] 2.5 - 5 mg PO Q4HRS PRN #30 tab 08/12/17 [Last Taken Unknown] Discharge Medications: Refer to the Discharge Home Medication list for PRN reason. - Orders Services needed: Registered Nurse, Physical Therapy, Occupational Therapy Oxygen: 3 LPM Diet Recommendation: no restrictions on diet Diet Texture: Dysphagia 3 - Advanced - Moist, Bite-Size, Thin Liquids, Meds Whole in Puree, Meds Crushed in Puree Wound Care Instructions: Left hip wound care instructions: Change dressings to left hip every 3 days and as needed. Keep hip offloaded. When turning, turn right side, to back, to right side. 1. Clean with NS or wound cleanser and gauze. 2. Skin prep eh wound. 3. Honey gel to any open wound beds. 4. Cut telfa dressing to cover open wound beds. 4. Cover telfa with bordered foam dressing. Sia Goetz RN, Wound Care Team. Bilateral feet: Apply 10% urea cream to bilateral feet, except in between toes, twice per day. Activity/Weight Bearing Restrictions: Does not need to wear COMMUNICATIONS TOWER CLIMBER brace anymore. Activity as tolerated- no heavy lifting more than 10-15 pounds Additional: Follow up [facility] Dr. Yee in 3-4 weeks (may have appointment already ). Call [phone] for this appointment. Call with any new or worsening symptoms- weakness in arms, pain in arms, loss of bowel or bladder, changes in gait, worsening neck pain - Follow Up Care Current Providers and Referrals: Patient,NotPresent [Unknown] - As per Instructions
--- NOTE | 2017-08-12 10:26 | PDIAF ---
- Diagnosis Diagnosis: group A sterp bacteremia; B foot fungal dermatitis (severe) Code Status: Full Code - Medication Management Discharge Medications: Medications to Continue on Transfer Amitriptyline HCl [Elavil] 75 mg PO HS #0 tab 02/14/16 [Last Taken 06/07/17] Fluticasone/Salmeter 250/50Mcg [Advair 250/50 (*)] 1 puffs IH BID #0 disk [Last Taken 05/25/17] Spironolactone [Aldactone] 50 mg PO DAILY #0 tab 02/14/16 [Last Taken 06/08/17] Albuterol Sulfate [ALBUTEROL SULFATE] 0.63 mg IH BID PRN 03/30/17 [Last Taken ] Albuterol Sulfate [Ventolin Hfa] 2 puffs IH QID PRN 03/30/17 [Last Taken ] Apixaban [Eliquis] 5 mg PO BID 03/30/17 [Last Taken 06/08/17 FIRST DOSE] Colchicine [Colchicine (*)] 0.6 mg PO HS 03/30/17 [Last Taken 06/07/17] Gabapentin 100 mg PO DAILY 03/30/17 [Last Taken 06/08/17] Gabapentin 200 mg PO HS 03/30/17 [Last Taken 06/07/17] Leflunomide 20 mg PO HS 03/30/17 [Last Taken 06/07/17] Acetaminophen [Tylenol 325mg (*)] 650 mg PO Q4HRS PRN #0 tab 03/31/17 [Last Taken 07/30/17] Magnesium Oxide [Magnesium Oxide 400 mg (*)] 400 mg PO DAILY 07/31/17 [Last Taken Unknown] clonazePAM [Klonopin (*)] 0.5 mg PO HS PRN 07/31/17 [Last Taken Unknown] rOPINIRole HCL [Ropinirole HCl] 4 mg PO HS 07/31/17 [Last Taken Unknown] Betamethasone/Propylene Glyc [Betamethasone Dp Aug 0.05% Crm] 1 sha TP HS [Last Taken Unknown] Cholecalciferol Vit D3 [Vitamin D3 (*)] 1,000 units PO DAILY 08/01/17 [Last Taken Unknown] Emollient Combination No.103 [Ceracade] 1 sha TP DAILY 08/01/17 [Last Taken Unknown] Fexofenadine HCl [Katia Allergy] 180 mg PO DAILY 08/01/17 [Last Taken Unknown] Fluocinolone 0.01% [Synalar 0.01%] 1 sha TP DAILY 08/01/17 [Last Taken Unknown] Sennosides/Docusate Sodium [Senna-Docusate Sodium Tablet] 2 each PO HS 08/01/17 [Last Taken Unknown] Carvedilol [Coreg (*)] 12.5 mg PO BID #60 tab 08/12/17 [Last Taken Unknown] Furosemide [Lasix 40 MG (*)] 20 mg PO DAILY #30 tab 08/12/17 [Last Taken Unknown ] Polyethylene Glycol 3350 [Miralax 17 gm (*)] 17 gm PO DAILY PRN pkt 08/12/17 [ Last Taken Unknown] cefTRIAXone [Rocephin] 2 gm IV DAILY vial 08/12/17 [Last Taken Unknown] oxyCODONE IR [Oxycodone Ir (*)] 2.5 - 5 mg PO Q4HRS PRN #30 tab 08/12/17 [Last Taken Unknown] [employer] Antibiotics: ceftriaxone 2 g IV q 24 hours [employer] Antibiotic Stop Date: 08/16/17 Discharge Medications: Refer to the Discharge Home Medication list for PRN reason. PICC Care - Routine: Yes - Orders Services needed: Registered Nurse Diet Texture: Dysphagia 3 - Advanced - Moist, Bite-Size, Thin Liquids, Meds Whole in Puree, Meds Crushed in Puree - Labs/Radiology CBC Date: 08/15/17 CMP Date: 08/15/17 Call or Fax Lab and Imaging Results to: Dr. Angel Francisco - Follow Up Care Current Providers and Referrals: Patient,NotPresent [Unknown] - As per Instructions
--- NOTE | 2017-08-12 10:29 | PDIAF ---
- Diagnosis Diagnosis: GAS bacteremia, LE cellulitis, C6 compression fracture Code Status: Full Code - Medication Management Discharge Medications: Medications to Continue on Transfer Amitriptyline HCl [Elavil] 75 mg PO HS #0 tab 02/14/16 [Last Taken 06/07/17] Fluticasone/Salmeter 250/50Mcg [Advair 250/50 (*)] 1 puffs IH BID #0 disk [Last Taken 05/25/17] Spironolactone [Aldactone] 50 mg PO DAILY #0 tab 02/14/16 [Last Taken 06/08/17] Albuterol Sulfate [ALBUTEROL SULFATE] 0.63 mg IH BID PRN 03/30/17 [Last Taken ] Albuterol Sulfate [Ventolin Hfa] 2 puffs IH QID PRN 03/30/17 [Last Taken ] Apixaban [Eliquis] 5 mg PO BID 03/30/17 [Last Taken 06/08/17 FIRST DOSE] Colchicine [Colchicine (*)] 0.6 mg PO HS 03/30/17 [Last Taken 06/07/17] Gabapentin 100 mg PO DAILY 03/30/17 [Last Taken 06/08/17] Gabapentin 200 mg PO HS 03/30/17 [Last Taken 06/07/17] Leflunomide 20 mg PO HS 03/30/17 [Last Taken 06/07/17] Acetaminophen [Tylenol 325mg (*)] 650 mg PO Q4HRS PRN #0 tab 03/31/17 [Last Taken 07/30/17] Magnesium Oxide [Magnesium Oxide 400 mg (*)] 400 mg PO DAILY 07/31/17 [Last Taken Unknown] clonazePAM [Klonopin (*)] 0.5 mg PO HS PRN 07/31/17 [Last Taken Unknown] rOPINIRole HCL [Ropinirole HCl] 4 mg PO HS 07/31/17 [Last Taken Unknown] Betamethasone/Propylene Glyc [Betamethasone Dp Aug 0.05% Crm] 1 sha TP HS [Last Taken Unknown] Cholecalciferol Vit D3 [Vitamin D3 (*)] 1,000 units PO DAILY 08/01/17 [Last Taken Unknown] Emollient Combination No.103 [Ceracade] 1 sha TP DAILY 08/01/17 [Last Taken Unknown] Fexofenadine HCl [Katia Allergy] 180 mg PO DAILY 08/01/17 [Last Taken Unknown] Fluocinolone 0.01% [Synalar 0.01%] 1 sha TP DAILY 08/01/17 [Last Taken Unknown] Sennosides/Docusate Sodium [Senna-Docusate Sodium Tablet] 2 each PO HS 08/01/17 [Last Taken Unknown] Carvedilol [Coreg (*)] 12.5 mg PO BID #60 tab 08/12/17 [Last Taken Unknown] Furosemide [Lasix 40 MG (*)] 20 mg PO DAILY #30 tab 08/12/17 [Last Taken Unknown ] Polyethylene Glycol 3350 [Miralax 17 gm (*)] 17 gm PO DAILY PRN pkt 08/12/17 [ Last Taken Unknown] cefTRIAXone [Rocephin] 2 gm IV DAILY vial 08/12/17 [Last Taken Unknown] oxyCODONE IR [Oxycodone Ir (*)] 2.5 - 5 mg PO Q4HRS PRN #30 tab 08/12/17 [Last Taken Unknown] Skilled Nursing Antibiotics: ceftriaxone 2 g IV q 24 hours Skilled Nursing Antibiotic Stop Date: 08/16/17 Discharge Medications: Refer to the Discharge Home Medication list for PRN reason. PICC Care - Routine: Yes - Orders Services needed: Registered Nurse, Physical Therapy, Occupational Therapy Oxygen: 3 LPM Diet Recommendation: no restrictions on diet Diet Texture: Dysphagia 3 - Advanced - Moist, Bite-Size, Thin Liquids, Meds Whole in Puree, Meds Crushed in Puree Wound Care Instructions: Left hip wound care instructions: Change dressings to left hip every 3 days and as needed. Keep hip offloaded. When turning, turn right side, to back, to right side. 1. Clean with NS or wound cleanser and gauze. 2. Skin prep eh wound. 3. Honey gel to any open wound beds. 4. Cut telfa dressing to cover open wound beds. 4. Cover telfa with bordered foam dressing. Sia Goetz RN, Wound Care Team. Bilateral feet: Apply 10% urea cream to bilateral feet, except in between toes, twice per day. Activity/Weight Bearing Restrictions: Does not need to wear LIFESTYLE COORDINATOR brace anymore. Activity as tolerated- no heavy lifting more than 10-15 pounds Additional: Follow up wtih Dr. eYe in 3-4 weeks (may have appointment already ). Call [phone] for this appointment. Call with any new or worsening symptoms- weakness in arms, pain in arms, loss of bowel or bladder, changes in gait, worsening neck pain - Labs/Radiology CBC Date: 08/15/17 CMP Date: 08/15/17 Call or Fax Lab and Imaging Results to: Dr. Angel Francisco - Follow Up Care Current Providers and Referrals: Patient,NotPresent [Unknown] - As per Instructions Anatoliy Yee MD [Medical Doctor] - Angel Francisco MD [Medical Doctor] -
[2017-08-12] MEDS: FLUOCINOLONE 0.01% TP SCH (10:42)
[2017-08-12] MEDS: [UNRECOGNIZED DRUG - REMARK] TP SCH (10:42)
[2017-08-12] MEDS: SENNOSIDES/DOCUSATE SODIUM TAB PO SCH (10:43)
--- NOTE | 2017-08-12 11:44 | ASMTCMCOM ---
CM Note CM Note Notes: Pt is being discharged today via stretcher to [facility]. PCS form is in the chart. CM faxed over d/c paperwork and notified MATT Gutierrez w/ phone number to give report. CM available for changes. Date Signed: 08/12/2017 11:44 AM Electronically Signed By:SHAYY Felipe
[2017-08-12] MEDS: FLUTICASONE/SALMETER 250/50MCG DISKUS IH SCH (12:05)
[2017-08-12 12:13] VITALS: PULSE 98; RESP 18
[2017-08-12] MEDS: diphenhydrAMINE 25 MG CAP PO PRN (13:54)
--- NOTE | 2017-08-12 16:20 | ASDISCHSUM ---
Discharge Information Plan Status:SNF Medically Cleared to Leave:08/12/2017 Discharge Date:08/12/2017 03:42 PM CM D/C Disposition: ADT D/C Disposition:Long-Term Facility Projected Discharge Date:08/12/2017 11:00 AM Transportation at D/C: Discharge Delay Reason: Follow-Up Date:08/12/2017 11:00 AM Discharge Slot: Final Diagnosis: Placement Information Referral Type:*Retirement/SNF Referral ID:[id number] Provider Name:[facility]//[facility] Address 1:[address] [place] [address] Address 2: City:[place] Selection Factors: State:[place] Patient Contact Information Contact Name:TRAY Relationship:Son Address: Work Phone: City:[facility] Phone: State/Zip Code:[place] Email: Financial Information Financial Class: Primary Plan Desc:MEDICARE INPATIENT Primary Plan Number:[id number] Secondary Plan Desc:[employer] Secondary Plan Number:[id number] Assessment Information [facility] Initial CM Assessment Living Arrangements What is your living Answers: Alone arrangement? Who do you live with? Discharge Plan Comments Coordination Status Comments Notes: Patient admitted with acute encephalopathy. Approximately 5 weeks ago, she was discharged from [facility] (dx cervical compression fracture) to [facility] where she spent one month rehabbing. She was discharged home, where her son stayed with her for a week. When he left, she spent a week alone with her sister checking in occasionally and was unable to manage her care. Labs/imaging/evals all pending - PT/OT/HEARING AND SPEECH ASSISTANT ordered. CM will follow for discharge planning. Date Signed: 08/01/2017 01:14 PM Electronically Signed By:Simran Buitrago RN [facility] CM Progress Note CM Note CM Note Notes: I spoke with patient and her son re: discharge planning. They agree that patient needs SNF rehab before going home. Patient was at [facility] earlier this summer and requests to go back. Ludmila at [facility] confirmed receipt of my referral and can accept patient upon discharge. CM to follow. Date Signed: 08/02/2017 01:40 PM Electronically Signed By:Simran Buitrago RN [facility] CM Progress Note CM Note CM Note Notes: 08/06/2017 Case Management Note: Faxed updates to [facility]. Ready to accept pt when medically stable. Case Management to arrange transport at d/c: anticipate wheelchair with O2. Outpatient palliative to start at [facility]. Case Management to follow. 08/02 2017 CM Note I spoke with patient and her son re: discharge planning. They agree that patient needs SNF rehab before going home. Patient was at [facility] earlier this summer and requests to go back. Ludmila at [facility] confirmed receipt of my referral and can accept patient upon discharge. CM to follow. Date Signed: 08/06/2017 03:07 PM Electronically Signed By:Viktoria Trujillo RN [facility] CM Progress Note CM Note CM Note Notes: 08/08/2017 Case Management Note: Faxed updates to [facility]. Palliative consult today, please see notes for details. Pt [facility] to son in [place] after rehab stay completed. Anticipating d/c mid week. Case Management to follow. CM Note 08/06/2017 Case Management Note: Faxed updates to [facility]. Ready to accept pt when medically stable. Case Management to arrange transport at d/c: anticipate wheelchair with O2. Outpatient palliative to start at [facility]. Case Management to follow. 08/02 2017 ETTA Note I spoke with patient and her son re: discharge planning. They agree that patient needs SNF rehab before going home. Patient was at [facility] earlier this summer and requests to go back. Ludmila at [facility] confirmed receipt of my referral and can accept patient upon discharge. CM to follow. Date Signed: 08/08/2017 02:51 PM Electronically Signed By:Viktoria Trujillo RN [facility] ETTA Progress Note ETTA Note ETTA Note Notes: ETTA spoke w/ MATT Gutierrez regarding d/c POC and reviewed chart. The plan is still to discharge to [facility] when medically stable. CM to follow. Date Signed: 08/11/2017 03:04 PM Electronically Signed By:SHAYY Felipe [facility] CM Progress Note CM Note CM Note Notes: Pt is being discharged today via stretcher to [facility]. PCS form is in the chart. CM faxed over d/c paperwork and notified MATT Gutierrez w/ phone number to give report. CM available for changes. Date Signed: 08/12/2017 11:44 AM Electronically Signed By:SHAYY Felipe Intervention Information Intervention Type:*IM-Signed Date of Service:08/11/2017 10:05 AM Patient Type:Inpatient Staff Member:Socorro Whyte Hours: Discipline: Severity: Comment:
--- NOTE | 2017-08-12 22:08 | GDS ---
[f rep st] DISCHARGE SUMMARY DISCHARGE DIAGNOSES: 1. Septic shock secondary to group A Streptococcus bacteremia. 2. Group A Streptococcus bacteremia secondary to lower extremity cellulitis. 3. Fungal dermatitis likely precipitating fissuring of the feet and a portal of entry for infection, treated with fluconazole. 4. Possible left lower lobe pneumonia. 5. Chronic pleural effusion, insufficient fluid for thoracentesis. 6. Anemia of chronic disease. 7. Acute kidney injury, resolved. 8. Acute encephalopathy, resolved. 9. Elevated troponin, likely demand ischemia. 10. History of pulmonary embolism. 11. Chronic anticoagulation. 12. C6 compression fracture, cleared for removal of her cervical collar by Neurosurgery. 13. Acute hypoxemic respiratory failure secondary to possible pneumonia and pleural effusion, discha rged on 3 L of oxygen per minute. CONSULTANTS: 1. JORGE Whitney, Neurosurgery. 2. Fabrice Worrell MD, Pulmonology. 3. Angel Francisco MD, Infectious Disease. IMAGING STUDIES AND PROCEDURES: 1. Chest x-ray, July 31, 2017, showed possible early lingular pneumonia. 2. Head CT, July 31, 2017, was negative for acute hemorrhage, hydrocephalus or mass effect. No acute infarct. Cerebrovascular atherosclerosis was noted, as well as moderate microvascular ischemic gliosis. 3. Repeat chest x-ray, August 01, showed mild pulmonary edema with asymmetric pleural parenchymal opacity in the left lower lobe likely representing a small pleural effusion. 4. Cervical spine x-ray, August 01, 2017, showed a stable mild C6 compression fracture. 5. Echocardiogram, August 02, 2017, showed no left ventricular outflow tract obstruction, normal sized right ventricle, a bioprosthetic mitral valve, which is functioning normally with no evidence o f vegetation. Also, no vegetation seen on the aortic valve. Severe tricuspid regurgitation with bord royer right ventricular systolic pressure. 6. Video fluoroscopic swallow study, August 05, 2017, showed [id number] oral and pharyngeal dysphagia with no aspiration. 7. Repeat chest x-ray, August 08, 2017, showed no evidence of heart failure, persistent right bas ilar consolidation, possibly representing atelectasis versus evolving pneumonia, and a small right pl eural effusion. Attempted thoracentesis ultrasound showed a small right pleural effusion that was fe lt not to be significant enough to warrant thoracentesis. Repeat chest x-ray August 11 was unchan ged. HISTORY: For details, please see the history and physical dated July 31, 2017. In brief, the pa sharri is a 72-year-old female with a history of COPD and PE with bioprosthetic mitral valve replaceme nt and chronic lower extremity wounds, who presented to the emergency department with acute encephalopathy. HOSPITAL COURSE: Workup was consistent with severe sepsis. Blood cultures were drawn and then a PIC C line was placed and empiric antibiotics were initiated. She was noted to have bilateral lower extr emity cellulitis with a fungal dermatitis thought to be the portal of entry for infection. Her blood cultures grew group A strep on July 31. Repeat blood cultures were negative on August 02 an d again negative on August 08. She did grow MRSA in her sputum on August 09. However, she had no worsening respiratory symptoms, had remained afebrile and her white count normalized with her cur rent treatment regimen of ceftriaxone. I discussed this with Infectious Disease. It was thought she was colonized with MRSA rather than acutely ill. Her broad-spectrum antibiotics were tailored to ce ftriaxone once the group A strep organism was identified. There was some concern regarding her chest x-ray findings, and a thoracentesis was planned. However, it was deemed that she did not really hav e significant fluid to tap; thus this was deferred. She may have some atelectatic issues, as well as possible volume contributing to a small pleural effusion. However, she presented requiring 9 L/shine te of oxygen and was weaned down to 3 L/minute at the time of discharge. Also of note, she did develop some mild hyponatremia, possibly secondary to Lasix; this was in the se tting of a contraction alkalosis with diuresis. Her Lasix was held for several days. She will be di scharged home on a lower dose with close monitoring of her electrolytes and respiratory status. DISPOSITION: Patient was discharged to [facility] facility in stable condition for rehab and to complete her 2-week course of IV antibiotics. FOLLOWUP: 1. Dr. Angel Francisco, Infectious Disease. 2. Dr. Anatoliy Yee, Neurosurgery. DISCHARGE MEDICATIONS: Please see [facility] for completed outpatient medication list. New medication s on discharge include ceftriaxone 2 g IV daily with a stop date of August 16, MiraLAX 17 g p.o. martina y p.r.n., oxycodone 2.5 mg p.o. q.4 hours p.r.n., #30, no refills. She will continue all other outpa tient medications as prescribed. Changed medications include Lasix dose is decreased to 20 mg p.o. daily due to hyponatremia induced b y her diuretic, as well as developing contraction alkalosis secondary to diuresis. Coreg dose was als o reduced to 12.5 mg p.o. twice daily; this can be uptitrated as indicated. Discontinued medications include Valium and Benadryl. /[id number]/MODL
== END 2017-08-12 15:42 | DRG 871 ==
LOC: EDUNIT# → F2N 18:18 → F2W 08-02 23:25
PROVIDERS: ADMIT Internal Medicine; ATTEND Internal Medicine
PROC: 02HV33Z Insertion of Infusion Device into Superior Vena Cava, Percutaneous Approach (ICD-10-PCS; principal; 2017-07-31)
PROC: 0D9670Z Drainage of Stomach with Drainage Device, Via Natural or Artificial Opening (ICD-10-PCS; 2017-08-01)
DX: A40.0 Sepsis due to streptococcus, group A (principal); R65.21 Severe sepsis with septic shock; L03.115 Cellulitis of right lower limb; L03.116 Cellulitis of left lower limb; G93.41 Metabolic encephalopathy; N17.9 Acute kidney failure, unspecified; J96.21 Acute and chronic respiratory failure with hypoxia; E87.1 Hypo-osmolality and hyponatremia; J18.9 Pneumonia, unspecified organism; J90 Pleural effusion, not elsewhere classified; B36.9 Superficial mycosis, unspecified; L89.223 Pressure ulcer of left hip, stage 3; L89.222 Pressure ulcer of left hip, stage 2; E87.2 Acidosis; D63.8 Anemia in other chronic diseases classified elsewhere; I24.8 Other forms of acute ischemic heart disease; M48.52XA Collapsed vertebra, not elsewhere classified, cervical region, initial encounter for fracture; R13.12 Dysphagia, oropharyngeal phase; J44.9 Chronic obstructive pulmonary disease, unspecified; M47.812 Spondylosis without myelopathy or radiculopathy, cervical region; H44.89 Other disorders of globe; I10 Essential (primary) hypertension; G25.81 Restless legs syndrome; M40.202 Unspecified kyphosis, cervical region; R10.30 Lower abdominal pain, unspecified; Z95.3 Presence of xenogenic heart valve; Z79.01 Long term (current) use of anticoagulants; Z86.711 Personal history of pulmonary embolism
CPT/HCPCS: 82947-QW; 92526-GN; 92610-GN; 92611-GN; 96365; 97110-GP; 97116-GP; 97161-GP; 97167-GO; 97530-GO; 97530-GP; 97535-GO; C1751; G8978-GP-CJ; G8979-GP-CI; G8987-GO-CL; G8988-GO-CJ; G8996-GN-CI; G8996-GN-CJ; G8996-GN-CK; G8997-GN-CH; G8997-GN-CI; G8998-GN-CI; G8998-GN-CJ; J0610; J0696; J1250; J1815; J1956; J2997; J3370; J3475

== ENCOUNTER 2018-12-08 14:37 | Inpatient (IN) | payer OTHER ==
[2018-12-08] MEDS ORDERED: IPRATROPIUM/ALBUTEROL 3 ML DEYVIAL IH ONE (15:08)
[2018-12-08] MEDS ORDERED: NS 500 ML IV ONE (15:08)
[2018-12-08] MEDS ORDERED: MAGNESIUM SULF 2 GM/WATER 50 ML IV ONE (15:08)
[2018-12-08] MEDS ORDERED: methylPREDNISolone SOD SUCC 125 MG/2 ML VIAL IVP ONE (15:08)
--- NOTE | 2018-12-08 15:23 | EDPHY ---
H & P Time Seen by Provider: 12/08/18 15:07 HPI/ROS: HPI Cough, shortness of breath. Recent admission. 73-year-old male by private vehicle with daughter. She has a history of COPD. She is on 3 L of oxygen 24-7. She was recently admitted to [facility] from November 26 through December 02 for a combination of COPD exacerbation, influenza and pneumonia. She has been becoming progressively more short of breath over the last several days. She also reports having a worsening productive cough. I received a call from her primary care physician at [facility] who explained to me that they were going to send her to the emergency department for evaluation and admission. She tells me that she desatted to 85% despite her oxygen. ROS: Constitutional: No fever, no chills. As above. Eyes: No discharge. No changes in vision. ENT: No sore throat. No nasal congestion or rhinorrhea. Respiratory: As above. Cardiac: No chest pain, no palpitations. Gastrointestinal: No abdominal pain, no vomiting, no diarrhea. Genitourinary: No hematuria. No dysuria or increased frequency with urination. Musculoskeletal: No back pain. No neck pain. No myalgias or arthralgias. Skin: No rashes. Neurological: No headache. No focal weakness or altered sensation. Past medical history: COPD, artificial heart valve, DVT, rib fractures, partial hysterectomy, appendectomy, restless leg syndrome, cervical fracture. Social history: Long-time smoker. She lives at home in her house. She has home health care daily. She has a daughter who is present in the room. Former smoker. Physical Exam: General Appearance: Alert, intermittent junky wet sounding cough, she is not in distress. This patient is responding to questions appropriately and in full sentences. This patient appears well-hydrated and well-nourished. Eyes: Pupils equal and round no pallor or injection. No lid edema, erythema or injection. Respiratory: No tachypnea. She is having mild retractions, lung sounds are diminished bilaterally with intermittent rhonchi in the mid and upper viveros. No significant wheezing. Cardiovascular: Irregular rhythm. No murmur appreciated. Borderline tachycardia. Gastrointestinal: Abdomen is soft and nontender, no masses, bowel sounds normal. No focal tenderness at McBurney's point. No Rodriguez sign. Neurological: Motor sensory function is grossly intact. Cranial nerves are normal. Skin: Warm and dry, no rashes. Musculoskeletal: Neck is supple and nontender. Extremities are symmetrical. No significant lower extremity edema. All joints range without pain or impingement. Psychiatric: No agitation. No depression. Database: EKG: EKG time is 3:27 p.m.; EKG shows a narrow complex sinus tachycardia with a ventricular rate of 106. Pac. Left anterior fascicular block. Probable left ventricular hypertrophy. The NM, QRS, QT intervals are within normal limits. There are no ST-T wave changes indicative of ischemic or injury pattern. No evidence of right heart strain. Interpreted by me. Imaging: Chest x-ray PA and lateral; hyperinflation with flattened diaphragms, COPD findings. The cardiac mediastinal silhouette is unremarkable. Probable left lower lobe infiltrative process. Interpreted by me. Procedures: Emergency department course: Triage vital signs reviewed. Mildly tachycardic, pulse oximetry 87% in triage. On my evaluation on 3 L of nasal cannula pulse oximetry is 99%. Blood pressure 107/67. IV was placed. She was placed on a director of cardiac cath lab. EKG obtained and reviewed by myself. She will be given albuterol/Atrovent nebulizer treatments [id number] x3, she will receive 125 mg of IV Solu-Medrol and 2 g of IV magnesium. Chest x-ray to be obtained. 4:15 p.m., the patient was re-evaluated, she is finishing her nebulizer treatment. She is feeling better. She has improved air movement. Rhonchi still present but improved. I discussed the results of her chest x-ray and my concern about a developing left lower lobe pneumonia. Results of respiratory pathogen panel are currently pending. I will start her on IV Levaquin in the emergency department. I discussed admission with her she endorses. Hospitalist paged. 4:25 p.m., spoke with hospitalist, Dr. Diez, case discussed in detail with him. Patient accepted for admission to [facility] with telemetry. She was admitted in stable and improved condition. Differential Diagnosis: The differential diagnosis on this patient includes but is not limited to COPD exacerbation, bronchitis, pneumonia. This represents a partial list of diagnoses considered. These considerations are based on history, physical exam , past history, reassessment and diagnostic testing. Smoking Status: Former smoker Constitutional: Initial Vital Signs Temperature (C) 36.6 C 12/08/18 14:40 Heart Rate 106 H 12/08/18 14:40 Respiratory Rate 16 12/08/18 14:40 Blood Pressure 111/88 H 12/08/18 14:40 O2 Sat (%) 87 L 12/08/18 14:40 O2 Delivery Mode Nasal Cannula O2 (L/minute) 4 Allergies/Adverse Reactions: No Known Allergies Allergy (Verified 12/08/18 14:40) Home Medications: Medication Instructions Recorded Spironolactone [Aldactone] 50 mg PO DAILY #0 tab 02/14/16 Albuterol Sulfate [Ventolin Hfa] 2 puffs IH QID PRN 03/30/17 Apixaban [Eliquis] 5 mg PO BID 03/30/17 Colchicine [Colchicine (*)] 0.6 mg PO HS 03/30/17 Leflunomide 20 mg PO DAILY 03/30/17 Acetaminophen [Tylenol 325mg (*)] 650 mg PO Q4HRS PRN #0 tab 03/31/17 rOPINIRole HCL [Ropinirole HCl] 4 mg PO HS 07/31/17 Betamethasone/Propylene Glyc 1 sha TP HS 08/01/17 [Betamethasone Dp Aug 0.05% Crm] Cholecalciferol Vit D3 [Vitamin D3 1,000 units PO DAILY 08/01/17 (*)] Polyethylene Glycol 3350 [Miralax 17 gm PO DAILY PRN pkt 08/12/17 17 gm (*)] oxyCODONE IR [Oxycodone Ir (*)] 2.5 - 5 mg PO Q4HRS PRN #30 tab 08/12/17 Albuterol [Proventil Neb] 3 ml IH QID PRN 12/08/18 Amitriptyline HCl [Elavil 50 mg 50 mg PO HS 12/08/18 (*)] Carvedilol [Coreg] 18.75 mg PO BID 12/08/18 Ciclopirox Olamine [Ciclopirox] 1 sha TP DAILY 12/08/18 Fluticasone/Vilanterol [Breo 1 each IH DAILY 12/08/18 Ellipta 200-25 Mcg INH] Furosemide [Lasix 40 MG (*)] 80 mg PO DAILY 12/08/18 Gabapentin [Neurontin 100 MG (*)] 300 mg PO BID 12/08/18 Umeclidinium Ponce [Incruse 62.5 mcg IH DAILY 12/08/18 Ellipta] predniSONE 5 mg PO DAILY 12/08/18 rOPINIRole HCL [Requip] 2 mg PO HS PRN 12/08/18 traMADol [Ultram 50 mg (*)] 50 mg PO TID PRN 12/08/18 traZODone [traZODONE 50MG (*)] 50 mg PO HS PRN 12/08/18 Medical Decision Making - Diagnostics Imaging Results: Imaging Impressions Chest X-Ray 12/08/18 15:08 Impression: Suspect scarring versus recurrent infiltrate in the left lower lobe. - Data Points Laboratory Results: Laboratory Results 12/08/18 15:07 12/08/18 15:07 12/08/18 12/08/18 12/08/18 15:07 15:07 15:07 WBC RBC Hgb Hct MCV MCH MCHC RDW Plt Count MPV Neut % (Auto) Lymph % (Auto) Erath % (Auto) Eos % (Auto) Baso % (Auto) Nucleat RBC Rel Count Absolute Neuts (auto) Absolute Lymphs (auto) Absolute Monos (auto) Absolute Eos (auto) Absolute Basos (auto) Absolute Nucleated RBC Immature Gran % Seg Neutrophils % Band Neutrophils % Lymphocytes % Monocytes % Eosinophils % Basophils % Metamyelocytes % Myelocytes % Promyelocytes % Blast Cells % Immature Gran # Absolute Seg Neuts Absolute Band Neuts Absolute Lymphocytes Absolute Monocytes Absolute Eosinophils Absolute Basophils Absolute Metamyelocyte Absolute Myelocytes Absolute Promyelocytes Absolute Plasma Cells Nucleated RBCs RBC/WBC/PLT Morphology Absolute Blast Cells Plasma Cells % Platelet Estimate PT 15.7 SEC H SEC (12.0-15.0) INR 1.23 H (0.83-1.16) APTT 31.2 SEC SEC (23.0-38.0) Sodium 129 mEq/L L mEq/L (135-145) Potassium 3.6 mEq/L mEq/L (3.5-5.2) Chloride 84 mEq/L L mEq/L (97-110) Carbon Dioxide 32 mEq/l H mEq/l (22-31) Anion Gap 13 mEq/L mEq/L (6-14) BUN 30 mg/dL H mg/dL (7-23) Creatinine 1.0 mg/dL mg/dL (0.6-1.0) Estimated GFR 55 Glucose 139 mg/dL H mg/dL (70-100) Calcium 9.8 mg/dL mg/dL (8.5-10.4) NT-Pro-B Natriuret Pep 459 pg/mL H pg/mL (0-125) Procalcitonin 0.14 ng/mL H ng/mL (0.02-0.10) 12/08/18 15:07 WBC 27.87 10^3/uL H 10^3/uL (3.80-9.50) RBC 4.51 10^6/uL 10^6/uL (4.18-5.33) Hgb 13.6 g/dL g/dL (12.6-16.3) Hct 40.9 % % (38.0-47.0) MCV 90.7 fL fL (81.5-99.8) MCH 30.2 pg pg (27.9-34.1) MCHC 33.3 g/dL g/dL (32.4-36.7) RDW 12.8 % % (11.5-15.2) Plt Count 433 10^3/uL H 10^3/uL (150-400) MPV 9.9 fL fL (8.7-11.7) Neut % (Auto) Not Reported Lymph % (Auto) Not Reported Erath % (Auto) Not Reported Eos % (Auto) Not Reported Baso % (Auto) Not Reported Nucleat RBC Rel Count Not Reported Absolute Neuts (auto) Not Reported Absolute Lymphs (auto) Not Reported Absolute Monos (auto) Not Reported Absolute Eos (auto) Not Reported Absolute Basos (auto) Not Reported Absolute Nucleated RBC Not Reported Immature Gran % Not Reported Seg Neutrophils % 91.0 % % Band Neutrophils % 2.0 % % Lymphocytes % 2.0 % % Monocytes % 5.0 % % Eosinophils % 0.0 % % Basophils % 0.0 % % Metamyelocytes % 0.0 % % Myelocytes % 0.0 % % Promyelocytes % 0.0 % % Blast Cells % 0.0 % % Immature Gran # Not Reported Absolute Seg Neuts 25.36 10^3/uL H 10^3/uL (1.70-6.50) Absolute Band Neuts 0.56 10^3/uL 10^3/uL (0.00-0.70) Absolute Lymphocytes 0.56 10^3/uL L 10^3/uL (1.00-3.00) Absolute Monocytes 1.39 10^3/uL H 10^3/uL (0.30-0.80) Absolute Eosinophils 0.00 10^3/uL L 10^3/uL (0.03-0.40) Absolute Basophils 0.00 10^3/uL L 10^3/uL (0.02-0.10) Absolute Metamyelocyte 0.00 10^3/mL 10^3/mL (0.00-0.00) Absolute Myelocytes 0.00 10^3/mL 10^3/mL (0.00-0.00) Absolute Promyelocytes 0.00 10^3/uL 10^3/uL (0.00-0.00) Absolute Plasma Cells 0.00 10^3/uL 10^3/uL (0.00-0.00) Nucleated RBCs 0 /100 WBC /100 WBC (0-0) RBC/WBC/PLT Morphology NORMAL (NORMAL) Absolute Blast Cells 0.00 10^3/uL 10^3/uL (0.00-0.00) Plasma Cells % 0.0 % % Platelet Estimate INCREASED H (ADEQ) PT INR APTT Sodium Potassium Chloride Carbon Dioxide Anion Gap BUN Creatinine Estimated GFR Glucose Calcium NT-Pro-B Natriuret Pep Procalcitonin Medications Given: Carvedilol (Coreg) 18.75 mg PO BIDMEAL TANA Stop: 06/06/19 18:59 Last Admin: 12/08/18 19:06 Dose: 18.75 mg Sodium Chloride (Ns) 1,000 mls @ 100 mls/hr IV CONT TANA Stop: 06/06/19 16:44 Last Admin: 12/08/18 18:26 Dose: 1,000 mls Discontinued Medications Albuterol/Ipratropium (Duoneb) 9 ml IH EDNOW ONE Stop: 12/08/18 15:09 Last Admin: 12/08/18 16:11 Dose: 9 ml Sodium Chloride (Ns) 500 mls @ 0 mls/hr IV ONCE ONE; Wide Open PRN Reason: Protocol Stop: 12/08/18 15:09 Last Admin: 12/08/18 15:32 Dose: 500 mls Magnesium Sulfate (Magnesium Sulf 2 Gm (Premix)) 50 mls @ 50 mls/hr IV EDNOW ONE Stop: 12/08/18 16:07 Last Admin: 12/08/18 16:07 Dose: 50 mls Levofloxacin/Dextrose (Levaquin 750 Mg (Premix)) 150 mls @ 100 mls/hr IV EDNOW ONE PRN Reason: Protocol Stop: 12/08/18 17:46 Last Admin: 12/08/18 17:11 Dose: 150 mls Methylprednisolone Sodium Succinate (Solu-Medrol) 125 mg IVP EDNOW ONE Stop: 12/08/18 15:09 Last Admin: 12/08/18 15:34 Dose: 125 mg Departure - Departure Disposition: [facility] Acute Clinical Impression: Bronchitis, COPD exacerbation, Hypoxia, Possible pneumonia Condition: Fair
[2018-12-08 15:32] LABS: PLATELET COUNT 433 10^3/uL (150-400)
[2018-12-08 15:48] LABS: INR 1.23 (0.83-1.16); PROTIME(PATIENT) 15.7 SEC (12.0-15.0)
[2018-12-08] MEDS ORDERED: ONDANSETRON DISINTEGRATING 4 MG TAB PO PRN (16:39)
[2018-12-08] MEDS ORDERED: ONDANSETRON 4 MG/2 ML VIAL IVP PRN (16:39)
[2018-12-08] MEDS ORDERED: ACETAMINOPHEN 325 MG TAB PO PRN (16:39)
--- NOTE | 2018-12-08 17:29 | PDGENHP ---
<Gretchen Molina - Last Filed: 12/08/18 18:30> History and Physical - Chief Complaint SOB, productive cough - History of Present Illness This is a 73 y/o female with history of COPD and chronic respiratory failure requiring continuous supplementation of oxygen presenting to the emergbnecy room from her PCP's office for worsening shortness of breath, productive cough and desating while on her baseline 3L NC to ~85%. She was recently seen at [facility] between November 26-December 02 for similar symptoms ; she was treated for COPD exacerbation, influenza, and pneumonia. She was discharged and reports feeling much improved. However, on December 03 she reports "I started to go down hill" with increased dyspnea and worsening productive cough. Sputum is green in color. Endorses decreased appetite and poor fluid intake. Denies chest pains, palpitations, nausea, vomiting, diarrhea, fevers, chills. She is being admitted for further diagnostic work-up and monitoring. Past Medical History 1. Hypertension 2. Hyperlipidemia 3. COPD s/p chronic oxygen dependence 3L NC baseline 4. Hx of pulmonary embolism 5. Restless leg syndrome 6. GERD 7. Chronic lower extremity wound with hx of her wound care clinic 8. Pseudogout Past Surgical History 1. Appendectomy 2. 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 Hysterectomy 4. Skin graft Social 1. Lives independently 2. Denies alcohol or illicit drug use. Former smoker. History Information - Allergies/Home Medication List Allergies/Adverse Reactions: No Known Allergies Allergy (Verified 12/08/18 14:40) Home Medications: Albuterol Sulfate [Ventolin Hfa] 2 puffs IH QID PRN 03/30/17 [Last Taken ] Apixaban [Eliquis] 5 mg PO BID 03/30/17 [Last Taken 12/08/18 09:00] Colchicine [Colchicine (*)] 0.6 mg PO HS 03/30/17 [Last Taken 12/07/18] Leflunomide 20 mg PO DAILY 03/30/17 [Last Taken 12/08/18] rOPINIRole HCL [Ropinirole HCl] 4 mg PO HS 07/31/17 [Last Taken 12/07/18] Betamethasone/Propylene Glyc [Betamethasone Dp Aug 0.05% Crm] 1 sha TP HS [Last Taken Unknown] Cholecalciferol Vit D3 [Vitamin D3 (*)] 1,000 units PO DAILY 08/01/17 [Last Taken 12/08/18] Albuterol [Proventil Neb] 3 ml IH QID PRN 12/08/18 [Last Taken 12/07/18] Amitriptyline HCl [Elavil 50 mg (*)] 50 mg PO HS 12/08/18 [Last Taken 12/07/18] Carvedilol [Coreg] 18.75 mg PO BID 12/08/18 [Last Taken 12/08/18 09:00] Ciclopirox Olamine [Ciclopirox] 1 sha TP DAILY 12/08/18 [Last Taken Unknown] Fluticasone/Vilanterol [Breo Ellipta 200-25 Mcg INH] 1 each IH DAILY 12/08/18 [ Last Taken Unknown] Furosemide [Lasix 40 MG (*)] 80 mg PO DAILY 12/08/18 [Last Taken 12/08/18] Gabapentin [Neurontin 100 MG (*)] 300 mg PO BID 12/08/18 [Last Taken 12/08/18 09 :00] Umeclidinium [place] [Incruse Ellipta] 62.5 mcg IH DAILY 12/08/18 [Last Taken Unknown] predniSONE 5 mg PO DAILY 12/08/18 [Last Taken 12/08/18] rOPINIRole HCL [Requip] 2 mg PO HS PRN 12/08/18 [Last Taken Unknown] traMADol [Ultram 50 mg (*)] 50 mg PO TID PRN 12/08/18 [Last Taken 12/07/18] traZODone [traZODONE 50MG (*)] 50 mg PO HS PRN 12/08/18 [Last Taken 12/07/18] I have personally reviewed and updated: family history, medical history, social history, surgical history - Past Medical History COPD (With chronic hypoxic respiratory failure 2 L nasal cannula) Additional medical history: Chronic lower extremity wound with history of her Wound Care Clinic. Pseudogout. History of pulmonary embolism in 2012. Porcine mitral valve replacement. Restless leg syndrome. Hypertension - Surgical History Additional surgical history: Thoraco plastic. Appendectomy. Hysterectomy. Rectocele surgery. Skin graft. Porcine mitral valve replacement - Family History Additional family history: Diabetes and hypertension - Social History Smoking Status: Former smoker Alcohol Use: None Drug Use: None Review of Systems Review of Systems: ROS: 10pt was reviewed & negative except for what was stated in HPI & below Constitutional: Reports: malaise, weakness EENMT: Reports: no symptoms Cardiac: Reports: no symptoms Respiratory: Reports: cough, shortness of breath Gastrointestinal: Reports: no symptoms Genitourinary: Reports: no symptoms Muscolosketal: Reports: no symptoms Skin: Reports: no symptoms Neurological: Reports: no symptoms Hematologic/Lymphatic: Reports: blood clots (hx) Immunologic/Allergy: Reports: no symptoms Physical Exam Physical Exam: Lab data and imaging reviewed CXR: suspect scarring versus recurrent infiltrate in the left lower lobe. Does have old multiple rib fractures with a possible acute/subacute left lateral 6th rub fracture. EKG: Sinus tachy with no ST elevation or depression. Possible LVH. WBC: 27.87 Na: 129 Co2: 32 BUN/Creatinine: 30/1.0 BNP: 459 Temp Pulse Resp BP Pulse Ox 36.6 C 102 H 18 134/83 H 97 12/08/18 14:40 12/08/18 16:20 12/08/18 16:20 12/08/18 16:20 12/08/18 16:20 Constitutional: uncomfortable Eyes: PERRL, anicteric sclera, EOMI Ears, Nose, Mouth, Throat: moist mucous membranes, hearing normal, ears appear normal, no oral mucosal ulcers Cardiovascular: regular rate and rhythym, no murmur, rub, or gallop, tachycardia Peripheral Pulses: 2+: dorsalis-pedis (R) (Radial 2+), dorsalis-pedis (L) ( Radial 2+) Respiratory: expiratory wheeze, rhonchi Gastrointestinal: normoactive bowel sounds, soft, non-tender abdomen, no palpable masses Genitourinary: no bladder tenderness, other (Pt attempting to void and endorses a positive bladder fullness) Skin: warm, normal color, no rashes or abrasions, no fluctuance, no induration, No mottled Musculoskeletal: no muscle tenderness, normal joint ROM, no joint effusions, other (BUE/BLE motor strength 4/5) Neurologic: AAOx3, sensation intact bilaterally, CN II-XII Intact Psychiatric: interacting appropriately, not anxious, not encephalopathic, thought process linear Lymph, Heme, Immunologic: no cervical LAD, no supraclavicular LAD Lab Data & Imaging Review 12/08/18 15:07 12/08/18 15:07 WBC 27.87 10^3/uL (3.80-9.50) H 12/08/18 15:07 RBC 4.51 10^6/uL (4.18-5.33) 12/08/18 15:07 Hgb 13.6 g/dL (12.6-16.3) 12/08/18 15:07 Hct 40.9 % (38.0-47.0) 12/08/18 15:07 MCV 90.7 fL (81.5-99.8) 12/08/18 15:07 MCH 30.2 pg (27.9-34.1) 12/08/18 15:07 MCHC 33.3 g/dL (32.4-36.7) 12/08/18 15:07 RDW 12.8 % (11.5-15.2) 12/08/18 15:07 Plt Count 433 10^3/uL (150-400) H 12/08/18 15:07 MPV 9.9 fL (8.7-11.7) 12/08/18 15:07 Neut % (Auto) Not Reported 12/08/18 15:07 Lymph % (Auto) Not Reported 12/08/18 15:07 Wake % (Auto) Not Reported 12/08/18 15:07 Eos % (Auto) Not Reported 12/08/18 15:07 Baso % (Auto) Not Reported 12/08/18 15:07 Nucleat RBC Rel Count Not Reported 12/08/18 15:07 Absolute Neuts (auto) Not Reported 12/08/18 15:07 Absolute Lymphs (auto) Not Reported 12/08/18 15:07 Absolute Monos (auto) Not Reported 12/08/18 15:07 Absolute Eos (auto) Not Reported 12/08/18 15:07 Absolute Basos (auto) Not Reported 12/08/18 15:07 Absolute Nucleated RBC Not Reported 12/08/18 15:07 Immature Gran % Not Reported 12/08/18 15:07 Seg Neutrophils % 91.0 % 12/08/18 15:07 Band Neutrophils % 2.0 % 12/08/18 15:07 Lymphocytes % 2.0 % 12/08/18 15:07 Monocytes % 5.0 % 12/08/18 15:07 Eosinophils % 0.0 % 12/08/18 15:07 Basophils % 0.0 % 12/08/18 15:07 Metamyelocytes % 0.0 % 12/08/18 15:07 Myelocytes % 0.0 % 12/08/18 15:07 Promyelocytes % 0.0 % 12/08/18 15:07 Blast Cells % 0.0 % 12/08/18 15:07 Immature Gran # Not Reported 12/08/18 15:07 Absolute Seg Neuts 25.36 10^3/uL (1.70-6.50) H 12/08/18 15:07 Absolute Band Neuts 0.56 10^3/uL (0.00-0.70) 12/08/18 15:07 Absolute Lymphocytes 0.56 10^3/uL (1.00-3.00) L 12/08/18 15:07 Absolute Monocytes 1.39 10^3/uL (0.30-0.80) H 12/08/18 15:07 Absolute Eosinophils 0.00 10^3/uL (0.03-0.40) L 12/08/18 15:07 Absolute Basophils 0.00 10^3/uL (0.02-0.10) L 12/08/18 15:07 Absolute Metamyelocyte 0.00 10^3/mL (0.00-0.00) 12/08/18 15:07 Absolute Myelocytes 0.00 10^3/mL (0.00-0.00) 12/08/18 15:07 Absolute Promyelocytes 0.00 10^3/uL (0.00-0.00) 12/08/18 15:07 Absolute Plasma Cells 0.00 10^3/uL (0.00-0.00) 12/08/18 15:07 Nucleated RBCs 0 /100 WBC (0-0) 12/08/18 15:07 RBC/WBC/PLT Morphology NORMAL (NORMAL) 12/08/18 15:07 Absolute Blast Cells 0.00 10^3/uL (0.00-0.00) 12/08/18 15:07 Plasma Cells % 0.0 % 12/08/18 15:07 Platelet Estimate INCREASED (ADEQ) H 12/08/18 15:07 PT 15.7 SEC (12.0-15.0) H 12/08/18 15:07 INR 1.23 (0.83-1.16) H 12/08/18 15:07 APTT 31.2 SEC (23.0-38.0) 12/08/18 15:07 Sodium 129 mEq/L (135-145) L 12/08/18 15:07 Potassium 3.6 mEq/L (3.5-5.2) 12/08/18 15:07 Chloride 84 mEq/L (97-110) L 12/08/18 15:07 Carbon Dioxide 32 mEq/l (22-31) H 12/08/18 15:07 Anion Gap 13 mEq/L (6-14) 12/08/18 15:07 BUN 30 mg/dL (7-23) H 12/08/18 15:07 Creatinine 1.0 mg/dL (0.6-1.0) 12/08/18 15:07 Estimated GFR 55 12/08/18 15:07 Glucose 139 mg/dL (70-100) H 12/08/18 15:07 Calcium 9.8 mg/dL (8.5-10.4) 12/08/18 15:07 NT-Pro-B Natriuret Pep 459 pg/mL (0-125) H 12/08/18 15:07 Assessment & Plan Plan: 73 y/o female with history of COPD and oxygen dependence presenting with worsening shortness of breath, oxygen desaturation while on baseline 3L NC and productive cough. She was recently treated for these symptoms at [facility]. 1. Acute respiratory failure on chronic respiratory failure: Suspect influenza and pneumonia factors in her hypoxemia -Respiratory panel PCR pending; influenza was + at [facility] as well as elevated procalcitonin -If her symptoms do not improve with interventions, I would suggest involving pulmonary to evaluate further the fractured ribs. It seems these are old, however it was noted on today's chest x-ray of the possibility of an acute/ subacute left lateral 6th rib fx. 2. Acute COPD exacerbation -Received duoneb treatment and Solu-Medrol in emergency room - reports some relief after treatment -Continue duoneb treatments -Prednisone 60 mg to start tomorrow; holding her daily Prednisone 5 mg for now -Holding her albuterol IH for now since she will receive scheduled duonebs treatment; however, she may continue Ellipta IH and spironolactone 3. Influenza -Checking respiratory panel PCR -Will treat with tamiflu if + 4. Pneumonia: afebrile, tachycardic, productive cough, suspected infiltrate on CXR, leukocytosis -Blood cultures pending -Procalcitonin pending -Received Levofloxacin in the emergency room; will continue to treat with Levofloxacin pending procalcitonin results -Checking CBC tomorrow 5. Mitral valve Replacement: on eliquis. 6. Hyponatremia: (129). Suspect d/t poor PO intake -IVF -Recheck BMP tomorrow -Holding home furosemide for now 7. JASON: BUN/creatinine 30/1.0. Suspect hypovolemia r/t poor PO intake -IVF -Recheck BMP tomorrow 8. Chronic pain/RA: on elavil, gabapentin, leflunomide, oxy IR, tramadol, trazodone. For RLS, continue requip. Diet: Regular Code: DNR VTE ppx: Jorge Alberto Daugherty Dispo: Admit to inpatient <Nette Diez - Last Filed: 12/08/18 19:30> History and Physical - History of Present Illness Review of Systems Review of Systems: Physical Exam Physical Exam: Temp Pulse Resp BP Pulse Ox 37.0 C 108 H 16 128/89 H 89 L 12/08/18 19:03 12/08/18 19:06 12/08/18 19:03 12/08/18 19:06 12/08/18 19:03 O2 (L/minute) 3 Lab Data & Imaging Review 12/08/18 15:07 12/08/18 15:07 WBC 27.87 10^3/uL (3.80-9.50) H 12/08/18 15:07 RBC 4.51 10^6/uL (4.18-5.33) 12/08/18 15:07 Hgb 13.6 g/dL (12.6-16.3) 12/08/18 15:07 Hct 40.9 % (38.0-47.0) 12/08/18 15:07 MCV 90.7 fL (81.5-99.8) 12/08/18 15:07 MCH 30.2 pg (27.9-34.1) 12/08/18 15:07 MCHC 33.3 g/dL (32.4-36.7) 12/08/18 15:07 RDW 12.8 % (11.5-15.2) 12/08/18 15:07 Plt Count 433 10^3/uL (150-400) H 12/08/18 15:07 MPV 9.9 fL (8.7-11.7) 12/08/18 15:07 Neut % (Auto) Not Reported 12/08/18 15:07 Lymph % (Auto) Not Reported 12/08/18 15:07 Wake % (Auto) Not Reported 12/08/18 15:07 Eos % (Auto) Not Reported 12/08/18 15:07 Baso % (Auto) Not Reported 12/08/18 15:07 Nucleat RBC Rel Count Not Reported 12/08/18 15:07 Absolute Neuts (auto) Not Reported 12/08/18 15:07 Absolute Lymphs (auto) Not Reported 12/08/18 15:07 Absolute Monos (auto) Not Reported 12/08/18 15:07 Absolute Eos (auto) Not Reported 12/08/18 15:07 Absolute Basos (auto) Not Reported 12/08/18 15:07 Absolute Nucleated RBC Not Reported 12/08/18 15:07 Immature Gran % Not Reported 12/08/18 15:07 Seg Neutrophils % 91.0 % 12/08/18 15:07 Band Neutrophils % 2.0 % 12/08/18 15:07 Lymphocytes % 2.0 % 12/08/18 15:07 Monocytes % 5.0 % 12/08/18 15:07 Eosinophils % 0.0 % 12/08/18 15:07 Basophils % 0.0 % 12/08/18 15:07 Metamyelocytes % 0.0 % 12/08/18 15:07 Myelocytes % 0.0 % 12/08/18 15:07 Promyelocytes % 0.0 % 12/08/18 15:07 Blast Cells % 0.0 % 12/08/18 15:07 Immature Gran # Not Reported 12/08/18 15:07 Absolute Seg Neuts 25.36 10^3/uL (1.70-6.50) H 12/08/18 15:07 Absolute Band Neuts 0.56 10^3/uL (0.00-0.70) 12/08/18 15:07 Absolute Lymphocytes 0.56 10^3/uL (1.00-3.00) L 12/08/18 15:07 Absolute Monocytes 1.39 10^3/uL (0.30-0.80) H 12/08/18 15:07 Absolute Eosinophils 0.00 10^3/uL (0.03-0.40) L 12/08/18 15:07 Absolute Basophils 0.00 10^3/uL (0.02-0.10) L 12/08/18 15:07 Absolute Metamyelocyte 0.00 10^3/mL (0.00-0.00) 12/08/18 15:07 Absolute Myelocytes 0.00 10^3/mL (0.00-0.00) 12/08/18 15:07 Absolute Promyelocytes 0.00 10^3/uL (0.00-0.00) 12/08/18 15:07 Absolute Plasma Cells 0.00 10^3/uL (0.00-0.00) 12/08/18 15:07 Nucleated RBCs 0 /100 WBC (0-0) 12/08/18 15:07 RBC/WBC/PLT Morphology NORMAL (NORMAL) 12/08/18 15:07 Absolute Blast Cells 0.00 10^3/uL (0.00-0.00) 12/08/18 15:07 Plasma Cells % 0.0 % 12/08/18 15:07 Platelet Estimate INCREASED (ADEQ) H 12/08/18 15:07 PT 15.7 SEC (12.0-15.0) H 12/08/18 15:07 INR 1.23 (0.83-1.16) H 12/08/18 15:07 APTT 31.2 SEC (23.0-38.0) 12/08/18 15:07 Sodium 129 mEq/L (135-145) L 12/08/18 15:07 Potassium 3.6 mEq/L (3.5-5.2) 12/08/18 15:07 Chloride 84 mEq/L (97-110) L 12/08/18 15:07 Carbon Dioxide 32 mEq/l (22-31) H 12/08/18 15:07 Anion Gap 13 mEq/L (6-14) 12/08/18 15:07 BUN 30 mg/dL (7-23) H 12/08/18 15:07 Creatinine 1.0 mg/dL (0.6-1.0) 12/08/18 15:07 Estimated GFR 55 12/08/18 15:07 Glucose 139 mg/dL (70-100) H 12/08/18 15:07 Calcium 9.8 mg/dL (8.5-10.4) 12/08/18 15:07 NT-Pro-B Natriuret Pep 459 pg/mL (0-125) H 12/08/18 15:07 Procalcitonin 0.14 ng/mL (0.02-0.10) H 12/08/18 15:07 Assessment & Plan Assessment: Bronchitis (Acute) COPD exacerbation (Acute) Hypoxia (Acute) Plan: Pt seen and examined. Admitted at [facility] for flu, Pna, copd exacerbation for almost a week. dc'd on prednisone taper, no abx. had persistent weakness and dyspnea pretty much since she was home. sputum getting darker. more copd symptoms as prednisone tapered. a/p 1. COPD exacerbation * higher dose prednisone 2. ?PNA vs bronchitis * will cont levaquin - procalcitonin slightly up 3. hyponatremia * could possibly account for weakness * check urine studies 4. RA 5. chonic hypoxic resp failure
[2018-12-08] MEDS ORDERED: POLYETHYLENE GLYCOL 3350 17 GM PKT PO PRN (18:07)
[2018-12-08] MEDS: NS 1,000 ML IV SCH (18:26)
[2018-12-08] MEDS: CARVEDILOL 6.25 MG TAB PO SCH (19:06)
--- NOTE | 2018-12-08 20:22 | CPEKG ---
Test Reason : OPEN Blood Pressure : / mmHG Vent. Rate : 106 BPM Atrial Rate : 106 BPM P-R Int : 157 ms QRS Dur : 095 ms QT Int : 350 ms P-R-T Axes : 048 -54 091 degrees QTc Int : 465 ms Sinus tachycardia Atrial premature complex Probable left atrial enlargement Left anterior fascicular block LVH with secondary repolarization abnormality Confirmed by Aury Bernal ([id number]) on 12/08/2018 8:21:52 PM Referred By: Aury Bernal Confirmed By:Aury Bernal
[2018-12-08] MEDS: COLCHICINE 0.6 MG CAP/TAB PO SCH (21:01)
[2018-12-08] MEDS: traMADol 50 MG TAB PO PRN (21:02)
[2018-12-08] MEDS: traZODone 50 MG TAB PO PRN (21:02)
[2018-12-08] MEDS: APIXABAN 5 MG TAB PO SCH (21:02)
[2018-12-08] MEDS: AMITRIPTYLINE HCL 100 MG TAB PO SCH (21:02)
[2018-12-08] MEDS: GABAPENTIN 300 MG CAP PO SCH (21:02)
[2018-12-08] MEDS ORDERED: IPRATROPIUM/ALBUTEROL 3 ML DEYVIAL ONE (21:20)
[2018-12-08] MEDS: IPRATROPIUM/ALBUTEROL 3 ML DEYVIAL IH SCH (21:32)
[2018-12-09 05:23] LABS: PLATELET COUNT 328 10^3/uL (150-400)
[2018-12-09] MEDS: IPRATROPIUM/ALBUTEROL 3 ML DEYVIAL IH SCH ×4 (06:10→21:10)
[2018-12-09] MEDS: GABAPENTIN 300 MG CAP PO SCH ×2 (08:19→20:54)
[2018-12-09] MEDS: CARVEDILOL 6.25 MG TAB PO SCH ×2 (08:19→17:27)
[2018-12-09] MEDS: CHOLECALCIFEROL VIT D3 1,000 UNITS TAB PO SCH (08:19)
[2018-12-09] MEDS: APIXABAN 5 MG TAB PO SCH ×2 (08:19→20:54)
[2018-12-09] MEDS: SPIRONOLACTONE 100 MG TAB PO SCH (08:19)
[2018-12-09] MEDS: LEFLUNOMIDE 20 MG TAB PO SCH (08:19)
[2018-12-09] MEDS: predniSONE 20 MG TAB PO SCH (08:19)
[2018-12-09] MEDS: CICLOPIROX OLAMINE TP SCH (08:54)
[2018-12-09] MEDS: Fluticasone/Vilanterol [Breo Ellipta 200-25 Mcg Inh] IH SCH (09:13)
[2018-12-09] MEDS: UMECLIDINIUM BROMIDE 62.5 MCG IH SCH (09:13)
--- NOTE | 2018-12-09 10:31 | PDMN ---
Medical Necessity Medical necessity: [facility] M100 COPD, A-2days: 73 yo presents w/ SOB, cough and hypoxia 85% on baseline 3L NC. Recently treated at another facility for COPD exacerbation, flu and pneumonia and d/c'd last week. Pt now w/ acute resp fx on chronic resp fx - suspect flu and pneumonia, acute COPD exacerbation, hyponatremia (129) and JASON. WBC 27.87. Pt is tachycardic >100. BC pending. Nebs, IVF, IV antibx started. Meets [facility] IP criteria for COPD w/ worsening s/sx w/ high risk active acute comorbidity (flu/pneumonia), and worsening of pre- existing hypoxemia. Hx COPD on 3L O2 baseline, HTN, HLD, PE, GERD, chronic LE wound, pseudogout, RL, mitral valve replacement
--- NOTE | 2018-12-09 13:45 | HOSPPROG ---
Hospitalist Progress Note Assessment/Plan: 73 y/o female with history of COPD and oxygen dependence presenting with worsening shortness of breath, oxygen desaturation while on baseline 3L NC and productive cough. She was recently treated for these symptoms at [facility]. First encounter, chart reviewed. # Acute respiratory failure on chronic respiratory failure: -Respiratory panel PCR negative -recent influenza was + at [facility] as well as elevated procalcitonin -possibility of an acute/subacute left lateral 6th rib fx. # Acute COPD exacerbation -duoneb treatment and Solu-Medrol -Continue duoneb treatments -Prednisone 60 mg; holding her daily Prednisone 5 mg for now -Holding her albuterol IH for now since she will receive scheduled duonebs treatment; -she may continue Ellipta IH and spironolactone # Influenza -negative #Pneumonia: -afebrile, tachycardic, productive cough, suspected infiltrate on CXR, leukocytosis -Blood cultures pending -Procalcitonin mildly elevated -Received Levofloxacin in the emergency room -cont abx #Leukocytosis -decreased today -follow #Mitral valve Replacement: - on eliquis. Hyponatremia: -131, mild -d/t poor PO intake -IVF -Holding home furosemide for now #JASON: -BUN/creatinine 30/1.0. -Suspect hypovolemia r/t poor PO intake -IVF -better #Chronic pain/RA: -on elavil, gabapentin, leflunomide, oxy IR, tramadol, trazodone. -For RLS, continue requip. Diet: Regular Code: DNR VTE ppx: KEANU Daughertys Dispo: Admit to inpatient -cont supportive care Subjective: Feeling very tired and ill. No energy. SOB. Objective: Vital Signs Temp Pulse Resp BP Pulse Ox 36.4 C 87 16 106/65 91 L 12/09/18 11:20 12/09/18 11:20 12/09/18 11:20 12/09/18 11:20 12/09/18 11:20 Microbiology 12/08/18 16:40 Respiratory Panel (PCR) - Final Nasal, Sinus - Swab No Organism Detected By Pcr Laboratory Results 12/09/18 04:20 12/09/18 04:20 12/08/18 12/09/18 12/10/18 05:59 05:59 05:59 Intake Total 1000 Output Total 1775 Balance -775 PT 15.7 SEC (12.0-15.0) H 12/08/18 15:07 INR 1.23 (0.83-1.16) H 12/08/18 15:07 - Physical Exam Constitutional: appears nourished, not in pain, chronically ill appearing Eyes: PERRL, anicteric sclera, EOMI Ears, Nose, Mouth, Throat: moist mucous membranes, hearing normal, ears appear normal Cardiovascular: edema, No JVD, No tachycardia Respiratory: reduced air movement, rhonchi, No clear to auscultation Gastrointestinal: normoactive bowel sounds, No tenderness, No ascites Skin: warm, normal color, No mottled Musculoskeletal: normal joint ROM, no joint effusions, generalized weakness Neurologic: AAOx3 Psychiatric: not anxious, not encephalopathic, thought process linear ICD10 Worksheet Patient Problems: Problems Problem Status Onset Bronchitis Acute COPD exacerbation Acute Hypoxia Acute MRSA (methicillin resistant Staphylococcus aureus) Acute ~08/09/17 Rib fracture Acute Lower extremity cellulitis Acute Dyspnea Acute Neck pain Acute Pneumonia Acute Elevated troponin Acute Sepsis Acute
--- NOTE | 2018-12-09 14:05 | ASMTCMCOM ---
CM Note CM Note Notes: Pt was admitted with SOB, cough. She was recently at [facility] for a COPD exacerbation, flu, PNA (). She has a hx of COPD, HTN, chronic respiratory failure. She is O2 dependent. She is current with [facility]. They were notified of her hospitalization. She is being treated for her symptoms. PT/OT evals pending. She is a and lives in [place]. She has a son local. CM will follow for d/c needs. D/C needs: TBD Date Signed: 12/09/2018 02:04 PM Electronically Signed By:RENEE Saravia
[2018-12-09] MEDS: NS 1,000 ML IV SCH (14:20)
[2018-12-09] MEDS: guaiFENesin 600 MG TAB.ER PO SCH ×2 (14:20→20:53)
[2018-12-09] MEDS: oxyCODONE IR 5 MG TAB PO PRN (15:58)
[2018-12-09] MEDS: LIDOCAINE 4%/MENTHOL 1% PATCH TD SCH (17:26)
[2018-12-09] MEDS: AMITRIPTYLINE HCL 100 MG TAB PO SCH (20:53)
[2018-12-09] MEDS: COLCHICINE 0.6 MG CAP/TAB PO SCH (20:53)
[2018-12-09] MEDS: traMADol 50 MG TAB PO PRN (21:01)
[2018-12-09] MEDS: traZODone 50 MG TAB PO PRN (21:01)
[2018-12-09] MEDS: PATCH REMOVAL 1 EA PATCH TD SCH (21:02)
[2018-12-10 05:49] LABS: PLATELET COUNT 306 10^3/uL (150-400)
[2018-12-10] MEDS: IPRATROPIUM/ALBUTEROL 3 ML DEYVIAL IH SCH ×4 (06:06→21:28)
[2018-12-10] MEDS: Fluticasone/Vilanterol [Breo Ellipta 200-25 Mcg Inh] IH SCH (06:14)
[2018-12-10] MEDS: CARVEDILOL 6.25 MG TAB PO SCH ×2 (08:20→17:10)
[2018-12-10] MEDS: CHOLECALCIFEROL VIT D3 1,000 UNITS TAB PO SCH (08:20)
[2018-12-10] MEDS: APIXABAN 5 MG TAB PO SCH ×2 (08:20→20:59)
[2018-12-10] MEDS: guaiFENesin 600 MG TAB.ER PO SCH ×2 (08:20→20:59)
[2018-12-10] MEDS: oxyCODONE IR 5 MG TAB PO PRN ×2 (08:20→17:10)
[2018-12-10] MEDS: predniSONE 20 MG TAB PO SCH (08:20)
[2018-12-10] MEDS: LEFLUNOMIDE 20 MG TAB PO SCH (08:20)
[2018-12-10] MEDS: GABAPENTIN 300 MG CAP PO SCH ×2 (08:21→21:00)
[2018-12-10] MEDS: SPIRONOLACTONE 100 MG TAB PO SCH (08:21)
[2018-12-10] MEDS: LIDOCAINE 4%/MENTHOL 1% PATCH TD SCH (08:22)
[2018-12-10] MEDS: NS 1,000 ML IV SCH (08:30)
[2018-12-10] MEDS: CICLOPIROX OLAMINE TP SCH ×2 (09:13→21:01)
[2018-12-10] MEDS: UMECLIDINIUM BROMIDE 62.5 MCG IH SCH (09:49)
[2018-12-10] MEDS ORDERED: ACETAMINOPHEN 325 MG TAB PO PRN (10:19)
[2018-12-10] MEDS ORDERED: ALBUTEROL 3 ML DEYVIAL IH PRN (10:19)
--- NOTE | 2018-12-10 10:21 | HOSPPROG ---
Hospitalist Progress Note Assessment/Plan: 73 y/o female with history of COPD and oxygen dependence presenting with worsening shortness of breath, oxygen desaturation while on baseline 3L NC and productive cough. She was recently treated for these symptoms at [facility]. # Acute respiratory failure on chronic respiratory failure: -Respiratory panel PCR negative -recent influenza was + at [facility] as well as elevated procalcitonin -possibility of an acute/subacute left lateral 6th rib fx. # Acute COPD exacerbation -duoneb treatment and Solu-Medrol -Continue duoneb treatments -Prednisone 60 mg; holding her daily Prednisone 5 mg for now -Holding her albuterol IH for now since she will receive scheduled duonebs treatment; -she may continue Ellipta IH and spironolactone # Influenza -negative #Pneumonia: -afebrile, tachycardic, productive cough, suspected infiltrate on CXR, leukocytosis -Blood cultures NGTD -Procalcitonin mildly elevated -Received Levofloxacin in the emergency room -cont abx #Leukocytosis -decreased today -follow #Mitral valve Replacement: - on eliquis #Rib fracture -acute and chronic -lidoderm patch Hyponatremia: -133, mild -d/t poor PO intake -DC IVF -restart furosemide #JASON: -better -Suspect hypovolemia r/t poor PO intake -follow #Chronic pain/RA: -on elavil, gabapentin, leflunomide, oxy IR, tramadol, trazodone. -For RLS, continue requip. Diet: Regular Code: DNR VTE ppx: Willow, KEANUs Dispo: Admit to inpatient -cont supportive care Subjective: Up in the chair. Still feeling ill. Some rib pain. Coughing Objective: Vital Signs Temp Pulse Resp BP Pulse Ox 36.6 C 90 18 118/66 94 12/10/18 08:00 12/10/18 08:20 12/10/18 08:00 12/10/18 08:20 12/10/18 08:00 Microbiology 12/08/18 16:40 Respiratory Panel (PCR) - Final Nasal, Sinus - Swab No Organism Detected By Pcr Laboratory Results 12/10/18 04:28 12/10/18 04:28 12/09/18 12/10/18 12/11/18 05:59 05:59 05:59 Intake Total 1000 650 Output Total 1775 3050 Balance -775 -2400 PT 15.7 SEC (12.0-15.0) H 12/08/18 15:07 INR 1.23 (0.83-1.16) H 12/08/18 15:07 - Physical Exam Constitutional: chronically ill appearing, obese, uncomfortable Eyes: PERRL, anicteric sclera, EOMI Ears, Nose, Mouth, Throat: moist mucous membranes, hearing normal, ears appear normal Cardiovascular: regular rate and rhythym, No JVD, No edema Respiratory: no respiratory distress, reduced air movement, rhonchi, No clear to auscultation Gastrointestinal: normoactive bowel sounds, No tenderness, No ascites Skin: warm, normal color, No mottled Musculoskeletal: normal joint ROM, no joint effusions, generalized weakness Neurologic: AAOx3 Psychiatric: interacting appropriately, not anxious, not encephalopathic ICD10 Worksheet Patient Problems: Problems Problem Status Onset Bronchitis Acute COPD exacerbation Acute Hypoxia Acute MRSA (methicillin resistant Staphylococcus aureus) Acute ~08/09/17 Rib fracture Acute Lower extremity cellulitis Acute Dyspnea Acute Neck pain Acute Pneumonia Acute Elevated troponin Acute Sepsis Acute
[2018-12-10] MEDS: FUROSEMIDE 40 MG TAB PO SCH (10:54)
[2018-12-10] MEDS: traMADol 50 MG TAB PO PRN (20:59)
[2018-12-10] MEDS: traZODone 50 MG TAB PO PRN (20:59)
[2018-12-10] MEDS: COLCHICINE 0.6 MG CAP/TAB PO SCH (20:59)
[2018-12-10] MEDS: AMITRIPTYLINE HCL 100 MG TAB PO SCH (21:00)
[2018-12-10] MEDS: PATCH REMOVAL 1 EA PATCH TD SCH (21:44)
[2018-12-11 05:28] LABS: PLATELET COUNT 310 10^3/uL (150-400)
[2018-12-11] MEDS: IPRATROPIUM/ALBUTEROL 3 ML DEYVIAL IH SCH ×3 (06:00→17:18)
[2018-12-11] MEDS: LEFLUNOMIDE 20 MG TAB PO SCH (08:15)
[2018-12-11] MEDS: LIDOCAINE 4%/MENTHOL 1% PATCH TD SCH (08:16)
[2018-12-11] MEDS: GABAPENTIN 300 MG CAP PO SCH ×2 (08:17→20:47)
[2018-12-11] MEDS: guaiFENesin 600 MG TAB.ER PO SCH ×2 (08:17→20:46)
[2018-12-11] MEDS: predniSONE 20 MG TAB PO SCH (08:17)
[2018-12-11] MEDS: FUROSEMIDE 40 MG TAB PO SCH (08:18)
[2018-12-11] MEDS: SPIRONOLACTONE 100 MG TAB PO SCH (08:18)
[2018-12-11] MEDS: APIXABAN 5 MG TAB PO SCH ×2 (08:18→20:47)
[2018-12-11] MEDS: CHOLECALCIFEROL VIT D3 1,000 UNITS TAB PO SCH (08:19)
[2018-12-11] MEDS: CARVEDILOL 6.25 MG TAB PO SCH ×2 (08:25→18:22)
[2018-12-11] MEDS: traMADol 50 MG TAB PO PRN ×2 (08:33→20:56)
[2018-12-11] MEDS: Fluticasone/Vilanterol [Breo Ellipta 200-25 Mcg Inh] IH SCH (10:43)
[2018-12-11] MEDS: UMECLIDINIUM BROMIDE 62.5 MCG IH SCH (10:44)
--- NOTE | 2018-12-11 11:09 | HOSPPROG ---
Hospitalist Progress Note Assessment/Plan: 73 y/o female with history of COPD and oxygen dependence presenting with worsening shortness of breath, oxygen desaturation while on baseline 3L NC and productive cough. She was recently treated for these symptoms at [facility]. Discharged home for 5 days and came to [facility]. # Acute respiratory failure on chronic respiratory failure: -Respiratory panel PCR negative -recent influenza was + at [facility] as well as elevated procalcitonin -possibility of an acute/subacute left lateral 6th rib fx. # Acute COPD exacerbation -duoneb treatment and Solu-Medrol -Continue duoneb treatments -Prednisone 40 mg; holding her daily Prednisone 5 mg for now -Holding her albuterol IH for now since she will receive scheduled duonebs treatment; -she may continue Ellipta IH and spironolactone # Influenza -negative #Pneumonia: -afebrile, tachycardic, productive cough, suspected infiltrate on CXR, leukocytosis -Blood cultures NGTD -Procalcitonin mildly elevated -Received Levofloxacin in the emergency room -cont abx #Leukocytosis -decreased today -follow #Mitral valve Replacement: - on eliquis #Rib fracture -acute and chronic -lidoderm patch Hyponatremia: -132, mild -d/t poor PO intake -DC IVF -restarted furosemide #JASON: -better -Suspect hypovolemia r/t poor PO intake -follow #Chronic pain/RA: -on elavil, gabapentin, leflunomide, oxy IR, tramadol, trazodone. -For RLS, continue requip. Diet: Regular Code: DNR VTE ppx: Jorge Alberto Daugherty Dispo: Admit to inpatient -cont supportive care -will need SNF rehab -likely DC 1-2 days if doing well Subjective: Feeling tired. No pain. Still coughing. Objective: Vital Signs Temp Pulse Resp BP Pulse Ox 36.4 C 96 20 126/80 H 95 12/11/18 08:22 12/11/18 08:22 12/11/18 08:22 12/11/18 08:22 12/11/18 08:22 Laboratory Results 12/11/18 04:24 12/11/18 04:24 12/10/18 12/11/18 12/12/18 05:59 05:59 05:59 Intake Total 650 1650 Output Total 3050 4200 Balance -2400 -2550 PT 15.7 SEC (12.0-15.0) H 12/08/18 15:07 INR 1.23 (0.83-1.16) H 12/08/18 15:07 - Physical Exam Constitutional: appears nourished, chronically ill appearing Eyes: PERRL, anicteric sclera Ears, Nose, Mouth, Throat: moist mucous membranes, hearing normal Cardiovascular: No JVD, No edema Respiratory: reduced air movement, rhonchi Gastrointestinal: No tenderness, No ascites Skin: warm, normal color Musculoskeletal: no joint effusions, generalized weakness Neurologic: AAOx3 Psychiatric: interacting appropriately, not anxious, not encephalopathic ICD10 Worksheet Patient Problems: Problems Problem Status Onset Bronchitis Acute COPD exacerbation Acute Hypoxia Acute MRSA (methicillin resistant Staphylococcus aureus) Acute ~08/09/17 Rib fracture Acute Lower extremity cellulitis Acute Dyspnea Acute Neck pain Acute Pneumonia Acute Elevated troponin Acute Sepsis Acute
--- NOTE | 2018-12-11 11:42 | ASMTCMCOM ---
CM Note CM Note Notes: CM spoke to Viridiana Ibrahim NP regarding d/c POC. CM met w/ pt for dispo planning. PT is recommending HC vs SNF. Pt has been to [facility] previously and did not have a good experience. CM provided senior blue book. Pt would like a referral made to [facility] in [place]. Referral sent. CM to follow. Plan: [facility] Date Signed: 12/11/2018 11:42 AM Electronically Signed By:SHAYY Felipe
--- NOTE | 2018-12-11 16:08 | WOCRNPDOC ---
WOCRN Advanced Assessment Note - Skin Integrity Problem, Advanced Assess Coccyx Pressure Injury Dressing Type: Open to Air Exudate Amount: None Site Measurement - Head-to-Toe Length X Width X Depth (cm): 1x1x0.1 Pressure Injury Stage: Stage 2 Pressure Injury Present on Admit: Yes Skin Integrity Problem Comment: The wound is primarily a Stage 1 with a tiny area of stage two within it. This area is directly over the coccxy and is tender to the touch. Education with patient about pressure injury etiology and care. MATT Murphy in room for care. Wound care will sign off.
[2018-12-11] MEDS: AMITRIPTYLINE HCL 100 MG TAB PO SCH (20:46)
[2018-12-11] MEDS: COLCHICINE 0.6 MG CAP/TAB PO SCH (20:47)
[2018-12-11] MEDS: traZODone 50 MG TAB PO PRN (20:56)
[2018-12-11] MEDS: PATCH REMOVAL 1 EA PATCH TD SCH (20:57)
[2018-12-11] MEDS: CICLOPIROX OLAMINE TP SCH (21:04)
[2018-12-12] MEDS: IPRATROPIUM/ALBUTEROL 3 ML DEYVIAL IH SCH ×5 (00:12→21:55)
--- NOTE | 2018-12-12 08:28 | HOSPPROG ---
Hospitalist Progress Note Assessment/Plan: 73 y/o female with history of COPD and oxygen dependence presenting with worsening shortness of breath, oxygen desaturation while on baseline 3L NC and productive cough. First encounter, chart reviewed. # Acute respiratory failure on chronic respiratory failure -down to 2 liters of oxygen, baseline is 3 l -PCR negative, recent dx of influenza #possibility of an acute/subacute left lateral 6th rib fx. -not c/o pain from this # Acute COPD exacerbation -Continue duoneb treatments -Prednisone 40 mg (had been on IV steroids); holding her daily Prednisone 5 mg for now #Pneumonia -afebrile, tachycardic, productive cough, suspected infiltrate on CXR, leukocytosis -Blood cultures NGTD -Procalcitonin mildly elevated -Levaquin #Leukocytosis -decreased today -follow #Mitral valve Replacement - on Eliquis Hyponatremia -132, mild #JASON: -better #Chronic pain/RA -no c/o of this -home meds resumed #restless leg syndrome -Requip #plan: she is feeling not much better since being admitted, will re-evaluate tomorrow, continue prednisone. Subjective: Smita is feeling poorly today. Objective: Vital Signs Temp Pulse Resp BP Pulse Ox 36.6 C 98 18 113/70 90 L 12/12/18 08:00 12/12/18 08:00 12/12/18 08:00 12/12/18 08:00 12/12/18 08:00 Laboratory Results 12/11/18 04:24 12/11/18 04:24 12/11/18 12/12/18 12/13/18 05:59 05:59 05:59 Intake Total 1650 1250 Output Total 4200 3950 Balance -2550 -2700 PT 15.7 SEC (12.0-15.0) H 12/08/18 15:07 INR 1.23 (0.83-1.16) H 12/08/18 15:07 - Physical Exam Constitutional: appears nourished, not in pain, chronically ill appearing Eyes: PERRL Ears, Nose, Mouth, Throat: hearing normal Cardiovascular: regular rate and rhythym Respiratory: No no respiratory distress (mild), No no rales or rhonchi ( scattered throughout, increase wob with activity, gets tachycardic while talking ) Skin: warm, normal color Musculoskeletal: generalized weakness Neurologic: AAOx3 Psychiatric: interacting appropriately ICD10 Worksheet Patient Problems: Problems Problem Status Onset Bronchitis Acute COPD exacerbation Acute Hypoxia Acute Dyspnea Acute Elevated troponin Acute Lower extremity cellulitis Acute MRSA (methicillin resistant Staphylococcus aureus) Acute ~08/09/17 Neck pain Acute Pneumonia Acute Rib fracture Acute Sepsis Acute
[2018-12-12] MEDS: LIDOCAINE 4%/MENTHOL 1% PATCH TD SCH (08:44)
[2018-12-12] MEDS: GABAPENTIN 300 MG CAP PO SCH ×2 (08:46→21:00)
[2018-12-12] MEDS: traMADol 50 MG TAB PO PRN ×2 (08:46→21:00)
[2018-12-12] MEDS: CARVEDILOL 6.25 MG TAB PO SCH ×2 (08:48→18:27)
[2018-12-12] MEDS: FUROSEMIDE 40 MG TAB PO SCH (08:49)
[2018-12-12] MEDS: SPIRONOLACTONE 100 MG TAB PO SCH (08:49)
[2018-12-12] MEDS: CHOLECALCIFEROL VIT D3 1,000 UNITS TAB PO SCH (08:50)
[2018-12-12] MEDS: LEFLUNOMIDE 20 MG TAB PO SCH (08:50)
[2018-12-12] MEDS: APIXABAN 5 MG TAB PO SCH ×2 (08:51→21:01)
[2018-12-12] MEDS: predniSONE 20 MG TAB PO SCH (08:52)
[2018-12-12] MEDS: guaiFENesin 600 MG TAB.ER PO SCH ×2 (08:52→21:01)
[2018-12-12] MEDS: Fluticasone/Vilanterol [Breo Ellipta 200-25 Mcg Inh] IH SCH (10:35)
[2018-12-12] MEDS: UMECLIDINIUM BROMIDE 62.5 MCG IH SCH (10:49)
[2018-12-12] MEDS: oxyCODONE IR 5 MG TAB PO PRN (10:59)
--- NOTE | 2018-12-12 11:41 | ASMTCMCOM ---
CM Note CM Note Notes: CM spoke to Alissa Boss NP regarding d/c POC. Pt is not medically stable to d/c CM met w/ pt and notified her that [facility] has accepted her. CM to follow. Plan: [facility] Date Signed: 12/12/2018 11:40 AM Electronically Signed By:SHAYY Felipe
[2018-12-12] MEDS: traZODone 50 MG TAB PO PRN (21:00)
[2018-12-12] MEDS: COLCHICINE 0.6 MG CAP/TAB PO SCH (21:00)
[2018-12-12] MEDS: AMITRIPTYLINE HCL 100 MG TAB PO SCH (21:01)
[2018-12-12] MEDS: CICLOPIROX OLAMINE TP SCH (21:04)
[2018-12-12] MEDS: PATCH REMOVAL 1 EA PATCH TD SCH (21:04)
[2018-12-13] MEDS: IPRATROPIUM/ALBUTEROL 3 ML DEYVIAL IH SCH ×2 (05:53→10:49)
--- NOTE | 2018-12-13 09:08 | HOSPPROG ---
Hospitalist Progress Note Assessment/Plan: 73 y/o female with history of COPD and oxygen dependence presenting with worsening shortness of breath, oxygen desaturation while on baseline 3L NC and productive cough. # Acute respiratory failure on chronic respiratory failure -down to 2 liters of oxygen, baseline is 3 l -PCR negative, recent dx of influenza #possibility of an acute/subacute left lateral 6th rib fx. -not c/o pain from this # Acute COPD exacerbation -Continue duoneb treatments -Prednisone 40 mg (had been on IV steroids); holding her daily Prednisone 5 mg for now #Pneumonia -afebrile, tachycardic, productive cough, suspected infiltrate on CXR, leukocytosis -Blood cultures NGTD -Procalcitonin mildly elevated -Levaquin #Leukocytosis -decreased today -follow #Mitral valve Replacement - on Eliquis Hyponatremia -132, mild #JASON: -better #Chronic pain/RA -no c/o of this -home meds resumed #restless leg syndrome -Requip #plan: to go to [facility] this afternoon, still feeling just ok, but this may be due to her underlying COPD/ will have her f/u w Dr Fabrice Worrell Subjective: Jackson is feeling just ok this morning,not much better; but feels fine to be dc. Objective: Vital Signs Temp Pulse Resp BP Pulse Ox 36.6 C 102 H 18 115/69 3 L 12/13/18 08:00 12/13/18 08:00 12/13/18 08:00 12/13/18 08:00 12/13/18 08:00 Laboratory Results 12/11/18 04:24 12/11/18 04:24 12/12/18 12/13/18 12/14/18 05:59 05:59 05:59 Intake Total 1250 1980 Output Total 3950 1200 Balance -2700 780 PT 15.7 SEC (12.0-15.0) H 12/08/18 15:07 INR 1.23 (0.83-1.16) H 12/08/18 15:07 - Physical Exam Constitutional: not in pain, chronically ill appearing Eyes: PERRL Ears, Nose, Mouth, Throat: hearing normal Cardiovascular: regular rate and rhythym, tachycardia Respiratory: no respiratory distress, reduced air movement Skin: warm Musculoskeletal: generalized weakness Neurologic: AAOx3 Psychiatric: interacting appropriately ICD10 Worksheet Patient Problems: Problems Problem Status Onset Bronchitis Acute COPD exacerbation Acute Hypoxia Acute MRSA (methicillin resistant Staphylococcus aureus) Acute ~08/09/17 Rib fracture Acute Lower extremity cellulitis Acute Dyspnea Acute Neck pain Acute Pneumonia Acute Elevated troponin Acute Sepsis Acute
--- NOTE | 2018-12-13 09:17 | PDIAF ---
- Diagnosis Diagnosis: acute on chronic resp failure, copd,pna Code Status: Do Not Resuscitate - Medication Management Discharge Medications: electronically signed and located in the Home Medication List. PICC Care - Routine: N/A - Orders Services needed: Physical Therapy, Occupational Therapy Isolation Type: None Diet Recommendation: no restrictions on diet Diet Texture: Regular Texture Diet Additional Instructions: take prednisone as instructed and once completed resume home dose of 5 mg daily take Levaquin for 3 more days (this medication can affect your tendons ramesh achilles; if you have pain; stop taking make an appt to see Dr Fabrice Worrell in the next 2 weeks - Follow Up Care Current Providers and Referrals: NONE *PRIMARY CARE P,. [Unknown] - As per Instructions Fabrice Worrell MD [Medical Doctor] -
[2018-12-13] MEDS: CARVEDILOL 6.25 MG TAB PO SCH (09:32)
[2018-12-13] MEDS: guaiFENesin 600 MG TAB.ER PO SCH (09:32)
[2018-12-13] MEDS: APIXABAN 5 MG TAB PO SCH (09:32)
[2018-12-13] MEDS: FUROSEMIDE 40 MG TAB PO SCH (09:32)
[2018-12-13] MEDS: CHOLECALCIFEROL VIT D3 1,000 UNITS TAB PO SCH (09:32)
[2018-12-13] MEDS: predniSONE 20 MG TAB PO SCH (09:32)
[2018-12-13] MEDS: LIDOCAINE 4%/MENTHOL 1% PATCH TD SCH (09:33)
[2018-12-13] MEDS: oxyCODONE IR 5 MG TAB PO PRN (09:33)
[2018-12-13] MEDS: GABAPENTIN 300 MG CAP PO SCH (09:33)
[2018-12-13] MEDS: SPIRONOLACTONE 100 MG TAB PO SCH (09:34)
[2018-12-13] MEDS: LEFLUNOMIDE 20 MG TAB PO SCH (09:34)
[2018-12-13] MEDS: UMECLIDINIUM BROMIDE 62.5 MCG IH SCH (09:37)
--- NOTE | 2018-12-13 09:41 | ASMTLACE ---
LACE Length of stay for Answers: 4-6 days current admission Acuity / Level of Answers: Yes Care: Did the patient have an inpatient admission? Comorbidities - select Answers: Chronic pulmonary disease all that apply Diabetes (uncontrolled or controlled) Opioid dependence / Chronic pain Other Notes: Artificial heart valve; DVT; HTN; HLD # of Emergency department Answers: 1-2 visits in the last 6 months Score: 16 Date Signed: 12/13/2018 09:40 AM Electronically Signed By:Betty Redd RN
--- NOTE | 2018-12-13 10:26 | GDS ---
[f rep st] DISCHARGE SUMMARY DISCHARGE DIAGNOSES: 1. Acute respiratory failure on chronic respiratory failure. 2. Possibility of an acute/subacute left lateral rib fracture #6. 3. Acute chronic obstructive pulmonary disease exacerbation. 4. Pneumonia. 5. Leukocytosis. 6. Mitral valve replacement. 7. Mild hyponatremia. 8. Acute kidney injury. 9. Chronic pain due to rheumatoid arthritis. 10. Restless legs syndrome. HISTORY OF PRESENT ILLNESS: Briefly, the patient is a 73-year-old female with a history of COPD and chronic respiratory failure. She is on continuous oxygen. She felt more short of breath and desatte d while on her baseline of 3 L of oxygen to 85%. She was recently seen at [facility] f or similar symptoms. She was treated with COPD exacerbation, influenza pneumonia. She was discharge d when feeling improved. On December 03, she started feeling like she was going downhill. She was admitted. Blood cultures were checked, which showed no growth. Her respiratory panel PCR was negati ve. Today, she is feeling somewhat better. She is back to her baseline of oxygen levels. She will be discharged to [facility]. HOSPITAL COURSE PER PROBLEM: 1. Vqznk-ox-kborfoy respiratory failure. She is back to her baseline of 3 L. This is multifactoria l due to ongoing COPD, as well as pneumonia. 2. Possibility of an acute/subacute left lateral 6th rib fracture. She has not been complaining of pain from this. 3. Acute COPD exacerbation. Continue DuoNeb treatments. Also, will keep her on prednisone higher d ose for the next week and a half. 4. Pneumonia. She will need a few more days of Levaquin. 5. Leukocytosis, stable. 6. Mitral valve replacement, on Eliquis. 7. Mild hyponatremia. Most recent sodium 132. 8. Acute kidney injury, resolved. 9. Chronic pain/rheumatoid arthritis. Resumed her home medications. 10. Restless legs syndrome, on Requip. DISCHARGE CONDITION: Stable. Blood pressure is 115/69, heart rate of 102, respiratory rate of 18, O 2 sats on 3 L are 92%, temperature 36.6 Celsius. MEDICATIONS AT DISCHARGE: Please see the EMR. DISCHARGE INSTRUCTIONS: 1. To make an appointment to see Dr. Worrell in the next 2 weeks. 2. Levaquin can affect her Achilles tendon. To stop if this should start bothering her. Greater than 30 minutes discharging and coordinating the patient's care. /[id number]/MODL
--- NOTE | 2018-12-13 10:43 | ASMTDCNOTE ---
Case Management Discharge Discharge Order Complete? Answers: Yes Patient to Obtain Answers: Other Notes: [facility] Medications Transportation Arranged Answers: Other Notes: [facility] will Pick (Date 12/13/2018 02:00 PM & Time) Faxed Final Orders Answers: Yes Agency/Facility Transfer Answers: Yes Report Printed & Faxed to Receiving Agency Discharge Comments Notes: D/w [facility], final orders faxed. Kiersten vieira [facility] RN to call report Date Signed: 12/13/2018 10:42 AM Electronically Signed By:Betty Redd RN
[2018-12-13] MEDS: Fluticasone/Vilanterol [Breo Ellipta 200-25 Mcg Inh] IH SCH (10:49)
[2018-12-13 11:26] VITALS: BP 109/80
--- NOTE | 2018-12-13 16:44 | ASDISCHSUM ---
Discharge Information Plan Status:SNF Medically Cleared to Leave: Discharge Date:12/13/2018 02:35 PM CM D/C Disposition:Fdc Facility ADT D/C Disposition:Fdc Facility Projected Discharge Date:12/12/2018 11:00 AM Transportation at D/C:[employer] Discharge Delay Reason: Follow-Up Date:12/12/2018 11:00 AM Discharge Slot: Final Diagnosis: Placement Information Referral Type:*Home Health Care Services [id number] Provider Name: Address 1: Phone Number: Address 2: Fax Number: City: Selection Factors: State: Referral Type:*Assisted/SNF Referral ID:[id number] Provider Name:[facility] [place] Address 1:[address] Phone Number: Address 2: Fax Number: [facility]:[place] Selection Factors: State:[place] Patient Contact Information Contact Name:TRAY Relationship:Son Address: Work Phone: [facility]:[place] Alternate Phone: [facility] Code:[place] Email: Financial Information Financial Class:Medicare Primary Plan Desc:MEDICARE INPATIENT Primary Plan Number:[id number] Secondary Plan Desc:[employer] Secondary Plan Number:[id number] Assessment Information [facility] Progress Note CM Note CM Note Notes: Pt was admitted with SOB, cough. She was recently at [facility] for a COPD exacerbation, flu, PNA (). She has a hx of COPD, HTN, chronic respiratory failure. She is O2 dependent. She is current with [facility]. They were notified of her hospitalization. She is being treated for her symptoms. PT/OT evals pending. She is a and lives in [place]. She has a son local. CM will follow for d/c needs. D/C needs: TBD Date Signed: 12/09/2018 02:04 PM Electronically Signed By:RENEE Saravia [facility] Progress Note CM Note CM Note Notes: CM spoke to Viridiana Ibrahim NP regarding d/c POC. CM met w/ pt for dispo planning. PT is recommending HC vs SNF. Pt has been to [facility] previously and did not have a good experience. CM provided senior blue book. Pt would like a referral made to [facility] in [place]. Referral sent. CM to follow. Plan: [facility] Date Signed: 12/11/2018 11:42 AM Electronically Signed By:SHAYY Felipe LACE LACE Length of stay for Answers: 4-6 days current admission Acuity / Level of Answers: Yes Care: Did the patient have an inpatient admission? Comorbidities - select Answers: Chronic pulmonary disease all that apply Diabetes (uncontrolled or controlled) Opioid dependence / Chronic pain Other Notes: Artificial heart valve; DVT; HTN; HLD # of Emergency department Answers: 1-2 visits in the last 6 months Score: 16 Date Signed: 12/13/2018 09:40 AM Electronically Signed By:Betyt Redd RN [facility] Progress Note [facility] Note [facility] Note Notes: CM spoke to Alissa Boss NP regarding d/c POC. Pt is not medically stable to d/c CM met w/ pt and notified her that [facility] has accepted her. CM to follow. Plan: [facility] Date Signed: 12/12/2018 11:40 AM Electronically Signed By:SHAYY Felipe Case Management Discharge Plan Note Case Management Discharge Discharge Order Complete? Answers: Yes Patient to Obtain Answers: Other Notes: [facility] Medications Transportation Arranged Answers: Other Notes: [facility] will Pick (Date 12/13/2018 02:00 PM & Time) Faxed Final Orders Answers: Yes Agency/Facility Transfer Answers: Yes Report Printed & Faxed to Receiving Agency Discharge Comments Notes: D/w [facility] [employer], final orders faxed. Kiersten at [facility] notified, RN to call report Date Signed: 12/13/2018 10:42 AM Electronically Signed By:Betty Redd RN Intervention Information Intervention Type:*IM-Signed Date of Service:12/13/2018 01:41 PM Patient Type:Inpatient Staff Member:Socorro Whyte Hours: Discipline: Severity: Comment:
== END 2018-12-13 14:35 | DRG 189 ==
LOC: F3E 17:58
PROVIDERS: ADMIT Internal Medicine; ATTEND Internal Medicine
DX: J96.20 Acute and chronic respiratory failure, unspecified whether with hypoxia or hypercapnia (principal); J18.9 Pneumonia, unspecified organism; J44.1 Chronic obstructive pulmonary disease with (acute) exacerbation; E87.1 Hypo-osmolality and hyponatremia; N17.9 Acute kidney failure, unspecified; L89.152 Pressure ulcer of sacral region, stage 2; E86.9 Volume depletion, unspecified; G89.29 Other chronic pain; M06.9 Rheumatoid arthritis, unspecified; G25.81 Restless legs syndrome; E78.5 Hyperlipidemia, unspecified; I10 Essential (primary) hypertension; Z99.81 Dependence on supplemental oxygen; Z79.01 Long term (current) use of anticoagulants; Z95.4 Presence of other heart-valve replacement; Z86.711 Personal history of pulmonary embolism; Z66 Do not resuscitate
CPT/HCPCS: 96374; 97110-GP; 97116-GP; 97162-GP; J1956; J2930; J3475; J7512